=== PATIENT | female | born 1940 | race Caucasian/White ===

== ENCOUNTER 2022-04-12 15:03 | Inpatient (IN) ==
--- NOTE | 2022-04-12 15:13 | ED Triage Note ---
Date of Service April 12, 2022 History of Present Illness This patient was briefly evaluated while in triage. An abbreviated physical exam was performed. This patient is a 82-year-old Female who presents to the ED for evaluation of left sided abdominal pain that intermittently radiates into her chest. This initially began 2 days ago but worsened today and is now constant. 01/31. Daughter is concerned that her abdomen is distended. She also states her legs are more swollen than normal. Physical Exam CONSTITUTIONAL: In pain holding abdomen CARDIAC: regular rate and normal rhythm. No murmurs rubs or gallops PULMONARY: lungs clear to auscultation ABDOMEN: diffuse significant tenderness, no CVA tenderness Initial orders for labs and / or imaging were placed and patient was placed in the waiting area until a bed is available. Please see further documentation for the full ED course. MDM / Impression Impression Impression: Umbilical hernia, Anemia, Abdominal pain, Portal hypertension, Hydronephrosis due to obstruction of ureter
[2022-04-12] MEDS ORDERED: SODIUM CHLORIDE 0.9% 500 ML IV ONE (16:02)
[2022-04-12] MEDS ORDERED: ACETAMINOPHEN 1,000 MG/100 ML VIAL IV STA (16:17)
[2022-04-12 16:18] LABS: Basophils # (auto) 0.05 K/uL (0-0.2); Basophils % (auto) 1.2 %; Eosinophils # (auto) 0.08 K/uL (0-0.50); Eosinophils % (auto) 1.8 %; Hematocrit (blood only) 23.4 % (34.1-44.9); Immature Granulocytes # (auto) 0.01 K/uL (0.00-0.02); Immature Granulocytes % (auto) 0.2 %; Lymphocytes # (auto) 0.75 K/uL (1.2-3.4); Lymphocytes % (auto) 17.3 %; Mean Corpuscular Hgb Conc 29.9 g/dL (32.0-36.0); Mean Corpuscular Volume 93.6 fL (80.0-100.0); Mean Platelet Volume 9.6 fL (9.4-12.3); Monocytes # (auto) 0.94 K/uL (0.24-0.82); Monocytes % (auto) 21.7 %; Neutrophils # (auto) 2.51 K/uL (1.4-6.5); Neutrophils % (auto) 57.8 %; Platelet Count 230 K/uL (130-400); RDW Coefficient of Variation 14.9 % (11.5-14.5); RDW Standard Deviation 51.5 fL (36.4-46.3); White Blood Count 4.34 K/ul (4.8-10.8)
--- NOTE | 2022-04-12 16:30 | XRay Report ---
XR chest 1V portable CLINICAL HISTORY: Left abd and chest pain TECHNIQUE: Single frontal radiograph of the chest was obtained. Comparison: Comparison is made to chest radiograph 01/03/[address] abdomen pelvis 01/03/2022 FINDINGS: No lines and tubes are seen. Cardiomegaly is noted. The lungs are clear. There is a small right pleur al effusion. IMPRESSION: Small right pleural effusion. Otherwise no acute abnormalities are seen. Stable cardiomegaly. ACT 112: Negative or not required by law. Electronically signed by: Damon Oquendo M.D. 04/12/2022 4:29 PM
[2022-04-12 16:39] LABS: Appearance Urine Turbid (Clear); Bacteria Urine Automated 4+ (Negative); Bilirubin Urine Negative (Negative); Blood Urine 3+ (Negative); Color Urine Yellow; Epithelial Cell Urine Auto >30 /lpf (0-5); Glucose Urine UA Negative (Negative); Ketones Urine Negative (Negative); Leukocyte Esterase Urine 3+ (Negative); Nitrite Urine Positive (Negative); Protein Urine 1+ (Negative); Urobilinogen Urine Negative (Negative); WBC Urine Automated >30 /hpf (0-5); pH Urine 5.5 (4.5-7.5)
[2022-04-12 16:45] LABS: Anisocytosis Present; Hypochromasia Present; Polychromasia 1+; Target Cells 1+
[2022-04-12 16:52] LABS: Troponin I High Sensitivity 4.9 pg/ml (0-14)
[2022-04-12 16:53] LABS: Alanine Aminotransferase 32 U/L (7-52); Albumin Globulin Ratio 0.6 (0.9-2); Albumin Level 2.7 gm/dl (3.4-5.0); Alkaline Phosphatase 183 U/L (34-104); Anion Gap 5 (3-11); Aspartate Aminotransferase 37 U/L (13-39); BUN Creatinine Ratio 26.5 (10-20); Bilirubin Direct 0.1 mg/dl (0-0.2); Bilirubin,Total 0.4 mg/dl (0.2-1.0); Blood Urea Nitrogen 36 mg/dl (6-23); Calcium 8.3 mg/dl (8.5-10.1); Carbon Dioxide 22 mmol/L (21-32); Chloride 107 mmol/L (98-107); Est GFR (African American) 42.5 ml/min; Est GFR (Non-African American) 36.7 ml/min; Globulin 4.5 gm/dl (2.5-4.0); Glucose 140 mg/dl (70-99(Fasting)); Potassium 3.6 mmol/L (3.5-5.1); Sodium 134 mmol/L (136-145); Total Protein 7.2 gm/dl (6.0-8.3)
[2022-04-12] MEDS ORDERED: OPTIRAY 300 100mL IV ONE (17:12)
[2022-04-12 17:32] LABS: Reticulocyte % 2.1 % (0.5-2.0); Reticulocytes # 0.05 10^6/uL (0.02-0.10)
--- NOTE | 2022-04-12 17:46 | CT Scan Report ---
CT SCAN OF THE ABDOMEN AND PELVIS WITH IV CONTRAST CLINICAL HISTORY: Incarcerated ventral hernia status post reduction. COMPARISON STUDY: Abdominal CT dated 01/03/2022. TECHNIQUE: Following the IV administration of 92 cc of Optiray 300, CT scan of the abdomen and pelvi s is performed from the lung bases to the proximal femora. Images are reviewed in the axial, sagittal , and coronal planes. IV contrast was administered without complication. A dose lowering technique wa s utilized adhering to the principles of ALARA. CT DOSE: 326.10 mGycm FINDINGS: Lung bases: The heart is enlarged and without pericardial effusion. There is a small and at least par tially loculated right pleural effusion with associated right basilar atelectasis. Scarring/atelectas is is seen at the left lung base. There is a moderate hiatal hernia which also contains ascitic fluid . Esophageal varices are observed. Liver: The contrast-enhanced liver is cirrhotic in morphology and heterogeneous in attenuation. There is hypertrophy of the left lobe and nodularity of the surface contour. There is no intrahepatic bili lencho ductal dilatation. The hepatic veins and portal veins are patent. Gallbladder: There are tiny calcified gallstones without CT evidence of acute cholecystitis. Mild gal lbladder wall thickening is nonspecific and likely related to cirrhosis and ascites. Spleen: Normal in size and attenuation. Pancreas: Moderately atrophic and grossly unremarkable. Adrenal glands: Unremarkable. Kidneys: The contrast enhanced kidneys are atrophic. There is a 2 cm obstructing calculus at the righ t ureteropelvic junction. This causes moderate hydronephrosis of the upper pole collecting system. Ad ditional punctate nonobstructing calculi are noted in the right kidney. Urothelial thickening and enh ancement is seen involving the right ureter. There is no hydronephrosis on the left. The kidneys enha nce symmetrically. Abdominal vasculature: The abdominal aorta is normal in course and caliber noting advanced atheroscle rotic calcification. Bowel: There is nonspecific wall thickening and edema of the right colon. The proximal small bowel lo ops are mildly distended and fluid-filled measuring up to 2.6 cm in diameter. This gradually transiti ons to more decompressed distal small bowel. No discrete transition point is identified the distal sm all bowel and colon are relatively decompressed. The appendix is nonvisualized. Peritoneum: There is a tadwk-bp-hzhhekmf volume of abdominopelvic ascites. No intraperitoneal free ai r is seen. There is a fat and fluid containing umbilical hernia. Lymphadenopathy: Mildly enlarged retroperitoneal lymph nodes measure up to 11 mm in short axis. There are numerous mildly enlarged mesenteric lymph nodes which measure up to 13 mm in short axis. There i s no pelvic sidewall or inguinal adenopathy. Pelvic viscera: The bladder is normal as visualized. The uterus is surgically absent. No adnexal lesi on is seen. Hemorrhoids are suspected. Skeletal structures: The skeletal structures are osteopenic. There is a chronic compression deformity of L3. Mild to moderate lumbosacral spondylosis is observed. No lytic or blastic lesions are seen. IMPRESSION: 1. There is a fat and fluid containing ventral hernia. No bowel loops are identified within the herni a sac. 2. The proximal small bowel loops are mildly distended and fluid-filled. This gradually transitions t o decompressed distal small bowel and colon. Given reported history of an incarcerated hernia this ma y represent a resolving bowel obstruction. Persistent low grade/partial bowel obstruction is not excl uded and clinical correlation will be essential. 3. No intraperitoneal free air is seen. There is no pneumatosis intestinalis. 4. The liver is cirrhotic in morphology and heterogeneous in attenuation. 5. A small to moderate volume of abdominopelvic ascites, esophageal varices, and hemorrhoids indicate portal hypertension. 6. Moderate hiatal hernia which also contains ascitic fluid. 7. There is a small and at least partially loculated right pleural effusion. 8. Mild wall thickening and edema of the right colon is nonspecific and likely represents portal colo ciro. Correlate clinically for evidence of a nonspecific colitis. 9. There is a 2 cm obstructing calculus at the right ureteropelvic junction. This causes moderate hyd ronephrosis of the upper pole collecting system. 10. There are additional small nonobstructing right renal calculi. 12. Urothelial thickening and enhancement of the right ureter is nonspecific and can be seen with uri nary tract infection. Correlate with clinical findings and urinalysis. 13. Cholelithiasis. 14. There are numerous mildly enlarged mesenteric and retroperitoneal lymph nodes. These are nonspeci fic and similar to the 01/03/2022 examination. 15. Additional findings as above. ACT 112: Negative or not required by law. Electronically signed by: Carmelo Espana M.D. 04/12/2022 5:44 PM
[2022-04-12 18:07] LABS: INR 1.1 (0.9-1.1); Prothrombin Time 12.1 Seconds (9.0-12.0)
[2022-04-12 18:26] LABS: Ferritin 15.2 ng/ml (8-388)
[2022-04-12] MEDS ORDERED: PANTOprazole 40 MG in SYRINGE 0 ML IV ONE (18:32)
--- NOTE | 2022-04-12 19:24 | History & Physical Report ---
Date of Service April 12, 2022 Assessment & Plan (1) Incarcerated hernia: Plan: This is an 82-year-old female with a history of VILLAGOEMZ cirrhosis complicated by known hemorrhoids and esophageal varices, previous pleural effusions requiring pleurocentesis, CKD3, nephrolithiasis, hypothyroidism, reported h/o MVP who presented to [facility] for evaluation of abdominal pain, most likely secondary to now-reduced incarcerated umbilical hernia and secondary SBO. However, on admission, she was also found to have evidence of a large, right- sided obstructing renal calculus causing hydronephrosis and acute anemia. Incarcerated Hernia - Per ED provider, on arrival, patient was found to have large incarcerated hernia that was subsequently reduced - CT-A/P on admission: "There is a fat and fluid containing ventral hernia. No bowel loops are identified within the hernia sac ... The proximal small bowel loops are mildly distended and fluid-filled. This gradually transitions to decompressed distal small bowel and colon. Given reported history of an incarcerated hernia this may represent a resolving bowel obstruction. Persistent low grade/partial bowel obstruction is not excluded and clinical correlation will be essential." - Reduced in ED with improvement of patient's pain - Apply abdominal binder with underlying sheet to ensure direct pressure over the site - Consult general surgery: appreciate insight on surgical correction when appropriate - If recurrence of acute abdominal pain --> will assess consider repeat CT-A/P (2) Hydronephrosis due to obstruction of ureter: Plan: - CT-A/P revealing: "There is a 2 cm obstructing calculus at the right ureteropelvic junction. This causes moderate hydronephrosis of the upper pole collecting system" alongside smaller nonobstructing right-sided renal calculi - Urinalysis demonstrating turbid-appearing urine with 1+ proteinuria, 3+ hematuria, +nitrites, 3+ LE, 4+ bacteruria, >30WBCs, and 10-30 RBCs in context of >30 epis --> UCX pending - On exam - no significant R-sided abdominal or flank pain; does not overtly appear septic, nor does she meet SIRS/sepsis criteria at present - Consult urology: appreciate insight/need for stenting vs. other procedure - Given size, obstruction --> CFTX 1g q12h (3) Normocytic anemia: Plan: - On admission, found to have Hgb 7.0, down from 10 on 01/03/22 ED visit - Patient reporting long-standing history of hematochezia, though ?possibly more recent history of melena - Primary concern is slow, chronic GIB - likely contribution from her hemorrhoids, though cannot definitely rule out slow variceal bleed or colonic origin. No overt hematuria. --> Cirrhosis history noted, INR 1.1 on arrival, Plt WNL --> Does report history of "banding in her esophagus" several years ago - Stool counts with description ordered, will order hemeoccult to verify as well - Consult GI: appreciate need, insight for EGD/conoloscopy once stabilized - Protonix 40mg IV b.i.d. --> No overt GIB/decompensated liver failure at time of admission and VSS. Monitor. If signs/symptoms --> start octreotide. CFTX already ongoing. 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 Files not available at this time - Does report known history of portal HTN, esophageal varices previously requiring banding, pleurocentesis (per her report - from liver disease; likely transudative), and hemorrhoids - Mild-moderate degree of ascites appreciated both on exam and on CT-A/P with mild pleural effusions - MELD: 10 // Child-Bob Class B -- note that MELD utilizes elevated Cr which may be d/t post-renal source --> Mildly depressed Na, elevated Cr - GI consulted, as above - Consider initiation of BB if not previously trialed as outpatient given varices - Hold Lasix given concern for bleed - Continue spironolactone (5) Small bowel obstruction: Plan: - Noted on CT-A/P in the setting of a clinically discovered incarcerated umbilical hernia that was subsequently reduced - Suspect largely secondary to hernia given location on CT-A/P - NPO for now - advance as tolerated - Surgery consulted, as above - Hold from NGT at this time (6) Esophageal varices: Plan: - Noted on CT-A/P alongside hemorrhoids in setting of known 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, per patient -- no files available - Apparently has undergone banding in the past; files unavailable, see cirrhosis above - GI consulted, as above - Ongoing PPI; hold from octreotide for this time (7) Mitral valve prolapse: Plan: - History noted by patient ; no TTE available - Do not believe there are presently findings to suggest CHF - will monitor (8) RAMAN (acute kidney injury): Plan: - BUN 36 / Cr 1.36 on admission - elevated from 35 / 1.13 in 12/2021 - Baseline is not clear - patient reports having CKD Stage III - Suspect mixed component of prerenal and postrenal in setting of abdominal pain/decreased PO intake and known obstructing stone - Cautious repletion of fluids given known hepatic congestion - will give 500cc at 80cc/hr x 1 then stop, give more PRN - Trend, considr Lucila/UCr if picture continues to remain unclear Plan Code: DNR/DNI - discussed extensively at bedside with patient and daughter PPX: Contraindicated due to concern of acute GIB Dispo: PCU Diet: NPO History of Present Illness Primary Care Provider: Zach Gomez This is an 82-year-old female with a history of VILLAGOMEZ cirrhosis complicated by known hemorrhoids and esophageal varices, previous pleural effusions requiring pleurocentesis, CKD, nephrolithiasis, hypothyroidism who presented to [facility] for evaluation of abdominal pain. Patient is accompanied by her daughter, who contributes to the history. She says over the last several weeks, she has had a left-sided abdominal pain that she attributed to her ascites. However, it continued to get worse through today, when it would not go away. She describes it as a sharp sensation that radiated to her back. She de nies any feelings of persistent nausea or vomiting, although did feel queasy. She denies any recent fevers, chills, sweats. She denies any urinary symptoms, including dysuria, urinary frequency, urinary urgency, or hematuria. She denies any chest pain, and endorses a baseline shortness of breath that is not changed over the last several months. She denies any recent changes in medications. Patient does say that she is struggled with hemorrhoids since she was young. However, she does say that she continues to have hematochezia on occasion, and thinks she may have had darkly discolored/black appearing stools. She is unable to quantify how recent this was. Denies any lightheadedness or dizziness. Denies any hematemesis. Does report intermittent nausea on occasion. She does report receiving a transfusion once in the past but does not remember why (doesn't think GIB). Thinks it was before 2015. Medications reviewed and include vitamin C, aspirin, vitamin D, famotidine, iron, furosemide, gabapentin, levothyroxine, spironolactone. Upon arrival to the emergency department, patient's vital signs were normal.Admission labs were significant for leukopenia 4.3 with relative monoc ytosis (0.94) and lymphopenia (0.75), normocytic anemia 7.0 (notable drop from 10.0 on 01/03/2022), platelet 230. PT mildly elevated 12.1 with high normal INR 1.1. Sodium on arrival 134. BUN 36/creatinine 1.36 (notably increased from 01/03 with creatinine 1.13). Serologic normal values of AST and ALT with elevation of ALP at 183, albumin 2.7. Urine revealed turbid appearance with 1+ protein, 3+ blood, positive nitrites, 3+ leuk esterase, over 30 white blood cells and 4+ bacteria. CT of the abdomen and pelvis revealed "fat and fluid containing ventral hernia", additionally demonstrated proximal small loops of bowel that are mildly distended and fluid-filled intermixed with decompressed distal small bowel, concerning for resolving bowel obstruction; cirrhotic liver morphology with smal l to moderate volume of ascites, esophageal varices, and hemorrhoids concerning for portal hypertension; moderate hiatal hernia; small loculated right pleural effusion; possible small amount of right-sided nonspecific colitis; 2 cm obstructing calculus at the right ureteropelvic junction which causes moderate hydronephrosis in the upper pole of the collecting system; urothelial thickening and enhancement of the right ureter; cholelithiasis; mildly enlarged mesenteric and retroperitoneal lymph nodes. She was given Protonix, acetaminophen, sodium chloride. Emergency physician spoke with general surgery, who recommended medical stabilization prior to any sort of surgical intervention for possible incarcerated hernia. Allergies Allergy/AdvReac Type Severity Reaction Status Date / Time Sulfa (Sulfonamide Allergy Intermediate Rash Verified 04/12/22 19:04 Antibiotics) Home Medications Medication Instructions Recorded Confirmed Type ascorbic acid (vitamin C) 500 mg 500 mg PO BID 01/03/22 04/12/22 History tablet (Vitamin C) aspirin 81 mg tablet,delayed 81 mg PO DAILY 01/03/22 04/12/22 History release calcium citrate 315 mg 2 tab PO DAILY 01/03/22 04/12/22 History calcium-vitamin D3 6.25 mcg (250 unit) tablet (Citracal + Vitamin D Maximum) cholecalciferol (vitamin D3) 50 50 mcg PO DAILY 01/03/22 04/12/22 History mcg (2,000 unit) capsule (Vitamin D3) cranberry fruit concentrate 250 mg 250 mg PO BID 01/03/22 04/12/22 History chewable tablet (Azo Cranberry) famotidine 40 mg tablet 40 mg PO DAILY 01/03/22 04/12/22 History ferrous sulfate 325 mg (65 mg 325 mg PO DAILY 01/03/22 04/12/22 History iron) tablet (iron) furosemide 40 mg tablet 40 mg PO DAILY 01/03/22 04/12/22 History gabapentin 100 mg capsule 200 mg PO HS 01/03/22 04/12/22 History levothyroxine 75 mcg tablet 75 mcg PO DAILYBB 01/03/22 04/12/22 History lifitegrast 5 % eye drops in a 1 drp OPB BID 01/03/22 04/12/22 History dropperette (Xiidra) spironolactone 25 mg tablet 25 mg PO DAILY 01/03/22 04/12/22 History vitamins A,C,F-dzrw-sqejde 14,320 1 cap PO BID 01/03/22 04/12/22 History unit-226 mg-200 unit capsule (PreserVision AREDS) Past Med/Surg History Medical History (Updated 04/13/22 @ 19:25 by Joey Olivarez MD) Cirrhosis Umbilical hernia Family History Other Family history non-contributory Social History Smoking Status: Never smoker Hx Alcohol Use: No Hx Substance Use: No Preferred Language: Northern Irish Communication Ability: Effective Spot Checker Required: No Beliefs That Will Affect Care: None Current Living Situation: Family Other Information That Helps Us Care for You: No Feels Safe at Home: Yes Safety Concerns: Feels Safe At This Time Assistive Devices: None Review of Systems Review of Systems: as per HPI Physical Exam Physical Exam: General: 82-year old female who is tired, but appears in no acute distress. HEENT: NCAT. - Eyes - Sclera are white, anicteric, and without injection. - Mouth - MMM - Neck - supple, with mild distention of veins appreciated and mild JVD with +hepatojugular reflux. Cardiac: Normal rate and regular rhythm; S1 and S2 present with no murmurs, rubs, or gallops. Pulmonary: Good respiratory effort with symmetric expansion of the chest. No use of accessory muscles. Intermittent crackles heard primarily throughout the lower lobes and bases bilaterally. Abdominal: Normoactive bowel sounds. Abdomen was soft and mildly distended, but non-tender to palpation. No CVA tenderness appreciated on admission exam. Extremities: Upper and lower extremities are warm and well perfused. Minimal peripheral edema in the lower extremities bilaterally Psych: Well-developed, well-nourished, appropriately dressed for occasion. Behavior is cooperative and appropriate. Affect is WNL. Insight is appropriate. Results & Data Results & Data ([facility]) Vital Signs (Past 12 Hours) Vital Signs Temp Pulse Pulse Resp BP BP Pulse Ox 04/12/22 18:30 109 H 18 114/57 L 98 04/12/22 17:30 76 16 113/54 L 98 04/12/22 15:49 76 19 100/71 99 04/12/22 15:06 36.4 C L 85 18 126/66 100 O2 Del Method 04/12/22 18:30 Room Air 04/12/22 17:30 Room Air 04/12/22 15:49 Room Air 04/12/22 15:06 Room Air Supervising Physician Co-Signing Physician Notes Patient seen and examined, chart reviewed, case discussed with Dr. Agosto and I agree with the assessment and plan as above. In brief, patient is a medically complex 82yo female with histoyr of VILLAGOMEZ with known hemorrhoids and varices, CKD, nephrolithiasis presenting with abdominal pain. Found to have SBO on ER workup Also with ventral hernia and left sided obstructing calculus in the right ureteropelvic junction 2cm. On exam she is resting comfortably, NAD Skin intact, no rashes or lesions HEENT - NC/AT, PERRL, MMM, Neck supple Heart - +S1/S2, regular Lungs- CTA Abd - +BS, soft, tender in lower abdomen with diminished bowel sounds 82yo female with ventral hernia, SBO, obstructing nephrolithiasis -Urology consultation. Strain urine. Ceftriaxone. -Conservative management for SBO. GI consultation -Remainder as above Resident Activity Tracking Resident Involvement: Resident Care Provided Care Provided: Adult Hospital Medicine
--- NOTE | 2022-04-12 20:59 | Emergency Department Note ---
Impression & Plan Incarcerated hernia, Anemia, Abdominal pain, Portal hypertension, Hydronephrosis due to obstruction of ureter ED Provider Note NAME: ADRIAN HUGHES AGE: 82 SEX: F ARRIVES VIA: Walk-In INFORMANT: Patient, daughter ED PROVIDER(S): Shayne Armstrong MD CHIEF COMPLAINT: Abdominal pain PLAN: Disposition: Admit MEDICAL DECISION MAKING: The patient is a pleasant 82-year-old woman with a past medical history of cirrhosis, hypothyroidism, hypertension, GERD who presents to the emergency department company by her daughter for evaluation of constant abdominal pain since around noon following eating lunch in the setting of having intermittent similar abdominal pain over the past couple weeks. They do report that she has a abdominal hernia that will go in and out but noted that since her pain started at noon today has been persistently out and tender. Patient reports that she did move her bowels this morning and this was normal. She reports a history of intermittent blood in her stool for years which she understood was due to hemorrhoids. She denies noticing any blood in the past month. She reports mild nausea but denies vomiting. She denies any fevers, cough, congestion, urinary symptoms. On arrival the patient is uncomfortable but no acute distress, afebrile with stable vital signs. She has moderate generalized abdominal tenderness with notable tender ventral/umbilical hernia with suspected bowel measuring approximately 5cm with mild erythema. The patient was placed in Trendelenburg position and gentle downward pressure was applied with gradual reduction of the patient's hernia and immediate relief of her symptoms. Unfortunately, approximately 10 minutes after her incarcerated hernia was reduced was informed by the patient's RN that the patient's hernia recurred and upon reevaluation her incarcerated bowel containing hernia was again present and again reduced in similar fashion. The patient was kept more supine to avoid recurrence. EKG without overt acute ischemia. Chest x-ray with small right pleural effusion and otherwise no acute process. WBC 4.3K nonspecific. H/H 23.4 which is decreased from 05/23 in December Platelets within normal limits. INR within normal limits. Creatinine 1.36 similar to prior range of values. Electrolytes without significant abnormality. LFTs are unremarkable. High-sensitivity troponin 4.9, nonspecific. LFTs without significant abnormality. UA with question of infection with bacteria and WBCs as well as positive nitrites albeit with epithelial cells > 30. COVID- 19 RNA, DAXA test was negative. CT of the abdomen pelvis demonstrates findings consistent with patient's pre sentation of incarcerated umbilical hernia with fat and fluid containing ventral hernia with no bowl loops within hernia sac. There are mildly distended and fluid-filled proximal small bowel loops are seen with gradual transition to decompressed distal small bowel and colon. Additional note is made of evidence of the patient's known cirrhosis with small-moderate abdominal pelvic ascites, esophageal varices and hemorrhoids. Additional note is made of a 2 cm obstructing calculus at the right UPJ causing moderate hydronephrosis though the patient denies any right flank pain. Urothelial thickening and enhancement of the right ureter is nonspecific but can be seen in urinary tract infection. Case was discussed with Kenneth Erickson general surgery PAC following initial hernia reduction x [address] Heath general surgery on-call following completion of CT scan. Appreciate recommendations for abdominal binder to prevent recurrence of hernia. Given multiple issues at this time and currently reduced hernia and thereby resolved obstruction no plan for intervention at this time. They will be available for inpatient team consultation. Case was discussed with AP Cabrera hospitalist, [facility] [place] team will evaluate the patient for admission. Will defer decision for antibiotics to admitting team. Triage Nursing notes reviewed and agree them. Prior medical records reviewed Vital Signs: reviewed and remarkable for no significant abnormalities Differential diagnosis: Gastroenteritis, food borne illness, infections, appendicitis, diverticulitis, inflammatory bowel disease, obstruction, GI bleed, biliary pathology, volvulus, as well as other pathologies. ER treatment provided: See below. Diagnostics interpreted by me: ECG: Sinus rhythm with PSVC's, 74 bpm, no overt ST elevation or depression, QTC 455, QRS 64. Cardiac Monitoring: An order for continuous cardiac monitoring was placed and demonstrated sinus rhythm with PSVC's, 74 bpm. Laboratory studies: See below Imaging studies: See below Consultation(s): Kenneth Erickson general surgery PAC and Dr. Heath general surgery on-call. AP Cabrera hospitalist HPI: The patient is a pleasant 82-year-old woman with a past medical history of cirrhosis, hypothyroidism, hypertension, GERD who presents to the emergency department company by her daughter for evaluation of constant abdominal pain since around noon following eating lunch in the setting of having intermittent similar abdominal pain over the past couple weeks. They do report that she has a abdominal hernia that will go in and out but noted that since her pain started at noon today has been persistently out and tender. Patient reports that she did move her bowels this morning and this was normal. She reports a history of intermittent blood in her stool for years which she understood was due to hemorrhoids. She denies noticing any blood in the past month. She reports mild nausea but denies vomiting. She denies any fevers, cough, congestion, urinary symptoms. ROS: See above HPI for pertinent positives & negatives. A total of 10 systems reviewed and were otherwise negative. VITALS:See Below PHYSICAL EXAMINATION: GENERAL: Awake, alert, uncomfortable-appearing, in no distress HENT: Normocephalic, atraumatic. Oropharynx with dry mucous membranes and otherwise unremarkable. EYES: Normal conjunctiva. Sclera non-icteric. NECK: Supple. No nuchal rigidity. FROM. No JVD. RESPIRATORY: Clear to auscultation. CARDIAC: Regular rate, normal rhythm. Extremities warm and well perfused. Pulses equal. ABDOMEN: Soft, non-distended. Moderate generalized abdominal tenderness with notable tender ventral/umbilical hernia with suspected bowel measuring approximately 5cm with mild erythema. No rebound/guarding. RECTAL: Deferred. MUSCULOSKELETAL: Chest examination reveals no tenderness. The back is symmetrical on inspection without obvious abnormality. There is no CVA tenderness to palpation. No joint edema. LOWER EXTREMITIES: Calves are equal size bilaterally and non-tender. No edema. No discoloration. NEURO: Normal sensorium. No sensory or motor deficits noted. SKIN: No rash or jaundice noted. ED COURSE: Procedures: Hernia reduction Indication: Incarcerated umbilical hernia Verbal consent was obtained. The patient was placed in Trendelenburg with gentle continuous downward pressure applied with complete reduction was achieved. The patient tolerated the procedure well and there were no complications. Repeat reduction performed in similar fashion after recurrence of incarcerated hernia. Again, the patient tolerated the procedure well and there were no complications. Critical Care: I have personally spent greater than 35 minutes of critical care time in the direct management of this patient. This includes bedside care, interpretation of diagnostic studies, and testing, discussion with consultants, patient, and family members, and other required patient management activities. This 35 minutes is in excess of all separately billable procedures. 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 Beliefs That Will Affect Care: None Current Living Situation: Family Other Information That Helps Us Care for You: No Feels Safe at Home: Yes Safety Concerns: Feels Safe At This Time Assistive Devices: Glasses and Hearing Aid - Bilateral Allergies Allergies Allergy/AdvReac Type Severity Reaction Status Date / Time Sulfa (Sulfonamide Allergy Intermediate Rash Verified 04/12/22 19:04 Antibiotics) Home Meds Home Medications Medication Instructions Recorded Confirmed ascorbic acid (vitamin C) 500 mg 500 mg PO BID 01/03/22 04/12/22 tablet (Vitamin C) aspirin 81 mg tablet,delayed 81 mg PO DAILY 01/03/22 04/12/22 release calcium citrate 315 mg 2 tab PO DAILY 01/03/22 04/12/22 calcium-vitamin D3 6.25 mcg (250 unit) tablet (Citracal + Vitamin D Maximum) cholecalciferol (vitamin D3) 50 50 mcg PO DAILY 01/03/22 04/12/22 mcg (2,000 unit) capsule (Vitamin D3) cranberry fruit concentrate 250 mg 250 mg PO BID 01/03/22 04/12/22 chewable tablet (Azo Cranberry) famotidine 40 mg tablet 40 mg PO DAILY 01/03/22 04/12/22 ferrous sulfate 325 mg (65 mg 325 mg PO DAILY 01/03/22 04/12/22 iron) tablet (iron) furosemide 40 mg tablet 40 mg PO DAILY 01/03/22 04/12/22 gabapentin 100 mg capsule 200 mg PO HS 01/03/22 04/12/22 levothyroxine 75 mcg tablet 75 mcg PO DAILYBB 01/03/22 04/12/22 lifitegrast 5 % eye drops in a 1 drp OPB BID 01/03/22 04/12/22 dropperette (Xiidra) spironolactone 25 mg tablet 25 mg PO DAILY 01/03/22 04/12/22 vitamins A,C,V-prpj-vivygy 14,320 1 cap PO BID 01/03/22 04/12/22 unit-226 mg-200 unit capsule (PreserVision AREDS) Results & Data (ED) Vital Signs Vital Signs - 24 hr 04/12/22 15:06 04/12/22 15:49 04/12/22 17:30 Temperature 36.4 C L Temperature Source Oral Pulse Rate 85 Pulse Rate [Left] 76 76 Pulse Rhythm [Left] Regular Pulse Strength [Left] Normal Respiratory Rate 18 19 16 Respiratory Effort / Characteristics Non-Labored Respiratory Depth Normal Respiratory Pattern Regular Blood Pressure 126/66 Blood Pressure [Right Arm] 100/71 113/54 L Blood Pressure Mean 86 Blood Pressure Mean [Right Arm] 80 73 Blood Pressure Position [Right Arm] Lying Pulse Oximetry 100 99 98 Oxygen Delivery Method Room Air Room Air Room Air Sepsis Recent Fever Within 48 Hours No Sepsis New/Unexplained Change in Mental Status No Sepsis Action Taken by Nursing No Action Required 04/12/22 18:30 Temperature Temperature Source Pulse Rate Pulse Rate [Left] 109 H Pulse Rhythm [Left] Regular Pulse Strength [Left] Normal Respiratory Rate 18 Respiratory Effort / Characteristics Non-Labored Spontaneous Respiratory Depth Normal Respiratory Pattern Regular Blood Pressure Blood Pressure [Right Arm] 114/57 L Blood Pressure Mean Blood Pressure Mean [Right Arm] 76 Blood Pressure Position [Right Arm] Lying Pulse Oximetry 98 Oxygen Delivery Method Room Air Sepsis Recent Fever Within 48 Hours Sepsis New/Unexplained Change in Mental Status Sepsis Action Taken by Nursing Laboratory Data Attestation: I reviewed the patient's lab results. Result diagrams: 04/12/22 21:07 04/12/22 16:00 Lab Results 04/12/22 04/12/22 04/12/22 Range/Units 16:00 16:00 16:00 WBC 4.34 L (4.8-10.8) K/ul RBC 2.50 L (3.93-5.22) M/uL Hgb 7.0 L (12.0-16.0) g/dl Hct 23.4 L (34.1-44.9) % MCV 93.6 (80.0-100.0) fL MCH 28.0 (25.0-34.0) pg MCHC 29.9 L (32.0-36.0) g/dL RDW Std Deviation 51.5 H (36.4-46.3) fL RDW Coeff of Bob 14.9 H (11.5-14.5) % Plt Count 230 (130-400) K/uL MPV 9.6 (9.4-12.3) fL Immature Gran % (Auto) 0.2 % Neut % (Auto) 57.8 % Lymph % (Auto) 17.3 % [place] % (Auto) 21.7 % Eos % (Auto) 1.8 % Baso % (Auto) 1.2 % Reticulocyte % (Auto) (0.5-2.0) % Neut # (Auto) 2.51 (1.4-6.5) K/uL Lymph # (Auto) 0.75 L (1.2-3.4) K/uL [place] # (Auto) 0.94 H (0.24-0.82) K/uL Eos # (Auto) 0.08 (0-0.50) K/uL Baso # (Auto) 0.05 (0-0.2) K/uL Reticulocyte # (0.02-0.10) 10^6/uL Immature Gran # (Auto) 0.01 (0.00-0.02) K/uL Polychromasia 1+ Hypochromasia Present Anisocytosis Present Target Cells 1+ PT (9.0-12.0) Seconds INR (0.9-1.1) Sodium 134 L (136-145) mmol/L Potassium 3.6 (3.5-5.1) mmol/L Chloride 107 (98-107) mmol/L Carbon Dioxide 22 (21-32) mmol/L Anion Gap 5 (3-11) BUN 36 H (6-23) mg/dl Creatinine 1.36 H (0.6-1.2) mg/dl Est Cr Clr Drug Dosing Not Reportable Est GFR ( Amer) 42.5 ml/min Est GFR (Non-Af Amer) 36.7 ml/min BUN/Creatinine Ratio 26.5 H (10-20) Glucose 140 H (70-99(Fasting)) mg/dl Calcium 8.3 L (8.5-10.1) mg/dl Iron (35-150) mcg/dl Transferrin (200-360) mg/dl Ferritin (8-388) ng/ml Total Bilirubin 0.4 (0.2-1.0) mg/dl Direct Bilirubin 0.1 (0-0.2) mg/dl AST 37 (13-39) U/L ALT 32 (7-52) U/L Alkaline Phosphatase 183 H (34-104) U/L Troponin I High Sens 4.9 (0-14) pg/ml C-Reactive Protein (0-0.5) mg/dl Total Protein 7.2 (6.0-8.3) gm/dl Albumin 2.7 L (3.4-5.0) gm/dl Globulin 4.5 H (2.5-4.0) gm/dl Albumin/Globulin Ratio 0.6 L (0.9-2) Procalcitonin (0-0.5) ng/ml Urine Color Yellow Urine Appearance Turbid A (Clear) Urine pH 5.5 (4.5-7.5) Ur Specific [place] 1.010 (1.000-1.030) Urine Protein 1+ H (Negative) Urine Glucose (UA) Negative (Negative) Urine Ketones Negative (Negative) Urine Blood 3+ H (Negative) Urine Nitrite Positive A (Negative) Urine Bilirubin Negative (Negative) Urine Urobilinogen Negative (Negative) Ur Leukocyte Esterase 3+ H (Negative) Urine WBC (Auto) >30 H (0-5) /hpf Urine RBC (Auto) 10-30 H (0-4) /hpf U Hyaline Cast (Auto) 1-5 (0-5) /lpf U Epithel Cells (Auto) >30 H (0-5) /lpf Urine Bacteria (Auto) 4+ H (Negative) SARS-CoV-2, RNA, NAAT (NEGATIVE) Blood Type Blood Type Recheck Antibody Screen Crossmatch 04/12/22 04/12/22 04/12/22 Range/Units 16:00 16:00 16:00 WBC (4.8-10.8) K/ul RBC (3.93-5.22) M/uL Hgb (12.0-16.0) g/dl Hct (34.1-44.9) % MCV (80.0-100.0) fL MCH (25.0-34.0) pg MCHC (32.0-36.0) g/dL RDW Std Deviation (36.4-46.3) fL RDW Coeff of Bob (11.5-14.5) % Plt Count (130-400) K/uL MPV (9.4-12.3) fL Immature Gran % (Auto) % Neut % (Auto) % Lymph % (Auto) % [place] % (Auto) % Eos % (Auto) % Baso % (Auto) % Reticulocyte % (Auto) 2.1 H (0.5-2.0) % Neut # (Auto) (1.4-6.5) K/uL Lymph # (Auto) (1.2-3.4) K/uL [place] # (Auto) (0.24-0.82) K/uL Eos # (Auto) (0-0.50) K/uL Baso # (Auto) (0-0.2) K/uL Reticulocyte # 0.05 (0.02-0.10) 10^6/uL Immature Gran # (Auto) (0.00-0.02) K/uL Polychromasia Hypochromasia Anisocytosis Target Cells PT 12.1 H (9.0-12.0) Seconds INR 1.1 (0.9-1.1) Sodium (136-145) mmol/L Potassium (3.5-5.1) mmol/L Chloride (98-107) mmol/L Carbon Dioxide (21-32) mmol/L Anion Gap (3-11) BUN (6-23) mg/dl Creatinine (0.6-1.2) mg/dl Est Cr Clr Drug Dosing Est GFR ( Amer) ml/min Est GFR (Non-Af Amer) ml/min BUN/Creatinine Ratio (10-20) Glucose (70-99(Fasting)) mg/dl Calcium (8.5-10.1) mg/dl Iron 49 (35-150) mcg/dl Transferrin 209 (200-360) mg/dl Ferritin 15.2 (8-388) ng/ml Total Bilirubin (0.2-1.0) mg/dl Direct Bilirubin (0-0.2) mg/dl AST (13-39) U/L ALT (7-52) U/L Alkaline Phosphatase (34-104) U/L Troponin I High Sens (0-14) pg/ml C-Reactive Protein (0-0.5) mg/dl Total Protein (6.0-8.3) gm/dl Albumin (3.4-5.0) gm/dl Globulin (2.5-4.0) gm/dl Albumin/Globulin Ratio (0.9-2) Procalcitonin (0-0.5) ng/ml Urine Color Urine Appearance (Clear) Urine pH (4.5-7.5) Ur Specific [place] (1.000-1.030) Urine Protein (Negative) Urine Glucose (UA) (Negative) Urine Ketones (Negative) Urine Blood (Negative) Urine Nitrite (Negative) Urine Bilirubin (Negative) Urine Urobilinogen (Negative) Ur Leukocyte Esterase (Negative) Urine WBC (Auto) (0-5) /hpf Urine RBC (Auto) (0-4) /hpf U Hyaline Cast (Auto) (0-5) /lpf U Epithel Cells (Auto) (0-5) /lpf Urine Bacteria (Auto) (Negative) SARS-CoV-2, RNA, NAAT (NEGATIVE) Blood Type Blood Type Recheck Antibody Screen Crossmatch 04/12/22 04/12/22 04/12/22 Range/Units 16:00 17:42 17:42 WBC (4.8-10.8) K/ul RBC (3.93-5.22) M/uL Hgb (12.0-16.0) g/dl Hct (34.1-44.9) % MCV (80.0-100.0) fL MCH (25.0-34.0) pg MCHC (32.0-36.0) g/dL RDW Std Deviation (36.4-46.3) fL RDW Coeff of Bob (11.5-14.5) % Plt Count (130-400) K/uL MPV (9.4-12.3) fL Immature Gran % (Auto) % Neut % (Auto) % Lymph % (Auto) % [place] % (Auto) % Eos % (Auto) % Baso % (Auto) % Reticulocyte % (Auto) (0.5-2.0) % Neut # (Auto) (1.4-6.5) K/uL Lymph # (Auto) (1.2-3.4) K/uL [place] # (Auto) (0.24-0.82) K/uL Eos # (Auto) (0-0.50) K/uL Baso # (Auto) (0-0.2) K/uL Reticulocyte # (0.02-0.10) 10^6/uL Immature Gran # (Auto) (0.00-0.02) K/uL Polychromasia Hypochromasia Anisocytosis Target Cells PT (9.0-12.0) Seconds INR (0.9-1.1) Sodium (136-145) mmol/L Potassium (3.5-5.1) mmol/L Chloride (98-107) mmol/L Carbon Dioxide (21-32) mmol/L Anion Gap (3-11) BUN (6-23) mg/dl Creatinine (0.6-1.2) mg/dl Est Cr Clr Drug Dosing Est GFR ( Amer) ml/min Est GFR (Non-Af Amer) ml/min BUN/Creatinine Ratio (10-20) Glucose (70-99(Fasting)) mg/dl Calcium (8.5-10.1) mg/dl Iron (35-150) mcg/dl Transferrin (200-360) mg/dl Ferritin (8-388) ng/ml Total Bilirubin (0.2-1.0) mg/dl Direct Bilirubin (0-0.2) mg/dl AST (13-39) U/L ALT (7-52) U/L Alkaline Phosphatase (34-104) U/L Troponin I High Sens (0-14) pg/ml C-Reactive Protein 3.07 H (0-0.5) mg/dl Total Protein (6.0-8.3) gm/dl Albumin (3.4-5.0) gm/dl Globulin (2.5-4.0) gm/dl Albumin/Globulin Ratio (0.9-2) Procalcitonin 0.08 (0-0.5) ng/ml Urine Color Urine Appearance (Clear) Urine pH (4.5-7.5) Ur Specific [place] (1.000-1.030) Urine Protein (Negative) Urine Glucose (UA) (Negative) Urine Ketones (Negative) Urine Blood (Negative) Urine Nitrite (Negative) Urine Bilirubin (Negative) Urine Urobilinogen (Negative) Ur Leukocyte Esterase (Negative) Urine WBC (Auto) (0-5) /hpf Urine RBC (Auto) (0-4) /hpf U Hyaline Cast (Auto) (0-5) /lpf U Epithel Cells (Auto) (0-5) /lpf Urine Bacteria (Auto) (Negative) SARS-CoV-2, RNA, NAAT (NEGATIVE) Blood Type A Positive Blood Type Recheck Antibody Screen NEGATIVE Crossmatch See Detail 04/12/22 04/12/22 Range/Units 18:56 18:57 WBC (4.8-10.8) K/ul RBC (3.93-5.22) M/uL Hgb (12.0-16.0) g/dl Hct (34.1-44.9) % MCV (80.0-100.0) fL MCH (25.0-34.0) pg MCHC (32.0-36.0) g/dL RDW Std Deviation (36.4-46.3) fL RDW Coeff of Bbo (11.5-14.5) % Plt Count (130-400) K/uL MPV (9.4-12.3) fL Immature Gran % (Auto) % Neut % (Auto) % Lymph % (Auto) % [place] % (Auto) % Eos % (Auto) % Baso % (Auto) % Reticulocyte % (Auto) (0.5-2.0) % Neut # (Auto) (1.4-6.5) K/uL Lymph # (Auto) (1.2-3.4) K/uL [place] # (Auto) (0.24-0.82) K/uL Eos # (Auto) (0-0.50) K/uL Baso # (Auto) (0-0.2) K/uL Reticulocyte # (0.02-0.10) 10^6/uL Immature Gran # (Auto) (0.00-0.02) K/uL Polychromasia Hypochromasia Anisocytosis Target Cells PT (9.0-12.0) Seconds INR (0.9-1.1) Sodium (136-145) mmol/L Potassium (3.5-5.1) mmol/L Chloride (98-107) mmol/L Carbon Dioxide (21-32) mmol/L Anion Gap (3-11) BUN (6-23) mg/dl Creatinine (0.6-1.2) mg/dl Est Cr Clr Drug Dosing Est GFR ( Amer) ml/min Est GFR (Non-Af Amer) ml/min BUN/Creatinine Ratio (10-20) Glucose (70-99(Fasting)) mg/dl Calcium (8.5-10.1) mg/dl Iron (35-150) mcg/dl Transferrin (200-360) mg/dl Ferritin (8-388) ng/ml Total Bilirubin (0.2-1.0) mg/dl Direct Bilirubin (0-0.2) mg/dl AST (13-39) U/L ALT (7-52) U/L Alkaline Phosphatase (34-104) U/L Troponin I High Sens (0-14) pg/ml C-Reactive Protein (0-0.5) mg/dl Total Protein (6.0-8.3) gm/dl Albumin (3.4-5.0) gm/dl Globulin (2.5-4.0) gm/dl Albumin/Globulin Ratio (0.9-2) Procalcitonin (0-0.5) ng/ml Urine Color Urine Appearance (Clear) Urine pH (4.5-7.5) Ur Specific [place] (1.000-1.030) Urine Protein (Negative) Urine Glucose (UA) (Negative) Urine Ketones (Negative) Urine Blood (Negative) Urine Nitrite (Negative) Urine Bilirubin (Negative) Urine Urobilinogen (Negative) Ur Leukocyte Esterase (Negative) Urine WBC (Auto) (0-5) /hpf Urine RBC (Auto) (0-4) /hpf U Hyaline Cast (Auto) (0-5) /lpf U Epithel Cells (Auto) (0-5) /lpf Urine Bacteria (Auto) (Negative) SARS-CoV-2, RNA, NAAT NEGATIVE (NEGATIVE) Blood Type Blood Type Recheck A Positive Antibody Screen Crossmatch Administered Medications Ascorbic Acid (Ascorbic Acid 500 Mg Tab) 500 mg PO BID KEVIN Stop: 05/12/22 21:34 Last Admin: 04/12/22 22:51 Dose: 500 mg Documented By: KRISTOPHER Gabapentin (Gabapentin 100 Mg Cap) 200 mg PO HS KEVIN Stop: 05/12/22 21:34 Last Admin: 04/12/22 22:51 Dose: 200 mg Documented By: KRISTOPHER Ceftriaxone Sodium 2,000 mg/ (Dextrose) 70 mls @ 100 mls/hr IV Q24H KEVIN; Protocol Stop: 04/22/22 21:59 Last Admin: 04/12/22 22:51 Dose: 100 mls/hr Documented By: KRISTOPHER Discontinued Medications Sodium Chloride (Nss) 500 mls @ 999 mls/hr IV .Q31M ONE Stop: 04/12/22 16:32 Last Infusion: 04/12/22 17:59 Dose: 0 mls/hr Documented By: Admin: 04/12/22 16:23 Dose: 999 mls/hr Documented By: SEEMA Acetaminophen (Ofirmev) 1,000 mg in 100 mls @ 400 mls/hr IV NOW STA Stop: 04/12/22 16:31 Last Infusion: 04/12/22 17:23 Dose: 0 mls/hr Documented By: Admin: 04/12/22 16:23 Dose: 400 mls/hr Documented By: SEEMA Pantoprazole Sodium 40 mg/ (Syringe) 10 mls @ 5 mls/min IV NOW ONE Stop: 04/12/22 18:33 Last Admin: 04/12/22 19:02 Dose: 5 mls/min Documented By: KACEY Ioversol (Optiray 300 100ml) 92 ml IV ONCE ONE Stop: 04/12/22 17:13 Last Admin: 04/12/22 17:15 Dose: 92 ml Documented By: JAYDEN Imaging Data Radiologist's Impression: Chest X-Ray 04/12/22 15:06 XR chest 1V portable CLINICAL HISTORY: Left abd and chest pain TECHNIQUE: Single frontal radiograph of the chest was obtained. Comparison: Comparison is made to chest radiograph 01/03/[address] abdomen pe lvis 01/03/2022 FINDINGS: No lines and tubes are seen. Cardiomegaly is noted. The lungs are clear. There is a small right pleural effusion. IMPRESSION: Small right pleural effusion. Otherwise no acute abnormalities are seen. Stable cardiomegaly. ACT 112: Negative or not required by law. Electronically signed by: Damon Oquendo M.D. 04/12/2022 4:29 PM Abdomen/Pelvis CT 04/12/22 16:17 CT SCAN OF THE ABDOMEN AND PELVIS WITH IV CONTRAST CLINICAL HISTORY: Incarcerated ventral hernia status post reduction. COMPARISON STUDY: Abdominal CT dated 01/03/2022. TECHNIQUE: Following the IV administration of 92 cc of Optiray 300, CT scan of the abdomen and pelvis is performed from the lung bases to the proximal femora. Images are reviewed in the axial, sagittal, and coronal planes. IV contrast was administered without complication. A dose lowering technique was utilized adhering to the principles of ALARA. CT DOSE: 326.10 mGycm FINDINGS: Lung bases: The heart is enlarged and without pericardial effusion. There is a small and at least partially loculated right pleural effusion with associated right basilar atelectasis. Scarring/atelectasis is seen at the left lung base. There is a moderate hiatal hernia which also contains ascitic fluid. Esophageal varices are observed. Liver: The contrast-enhanced liver is cirrhotic in morphology and heterogeneous in attenuation. There is hypertrophy of the left lobe and nodularity of the surface contour. There is no intrahepatic biliary ductal dilatation. The hepatic veins and portal veins are patent. Gallbladder: There are tiny calcified gallstones without CT evidence of acute cholecystitis. Mild gallbladder wall thickening is nonspecific and likely related to cirrhosis and ascites. Spleen: Normal in size and attenuation. Pancreas: Moderately atrophic and grossly unremarkable. Adrenal glands: Unremarkable. Kidneys: The contrast enhanced kidneys are atrophic. There is a 2 cm obstructing calculus at the right ureteropelvic junction. This causes moderate hydronephrosis of the upper pole collecting system. Additional punctate nonobstructing calculi are noted in the right kidney. Urothelial thickening and enhancement is seen involving the right ureter. There is no hydronephrosis on the left. The kidneys enhance symmetrically. Abdominal vasculature: The abdominal aorta is normal in course and caliber noting advanced atherosclerotic calcification. Bowel: There is nonspecific wall thickening and edema of the right colon. The proximal small bowel loops are mildly distended and fluid-filled measuring up to 2.6 cm in diameter. This gradually transitions to more decompressed distal small bowel. No discrete transition point is identified the distal small bowel and colon are relatively decompressed. The appendix is nonvisualized. Peritoneum: There is a [id number] volume of abdominopelvic ascites. No intraperitoneal free air is seen. There is a fat and fluid containing umbilical hernia. Lymphadenopathy: Mildly enlarged retroperitoneal lymph nodes measure up to 11 mm in short axis. There are numerous mildly enlarged mesenteric lymph nodes which measure up to 13 mm in short axis. There is no pelvic sidewall or inguinal adenopathy. Pelvic viscera: The bladder is normal as visualized. The uterus is surgically absent. No adnexal lesion is seen. Hemorrhoids are suspected. Skeletal structures: The skeletal structures are osteopenic. There is a chronic compression deformity of L3. Mild to moderate lumbosacral spondylosis is ob served. No lytic or blastic lesions are seen. IMPRESSION: 1. There is a fat and fluid containing ventral hernia. No bowel loops are id entified within the hernia sac. 2. The proximal small bowel loops are mildly distended and fluid-filled. This gradually transitions to decompressed distal small bowel and colon. Given reported history of an incarcerated hernia this may represent a resolving bowel obstruction. Persistent low grade/partial bowel obstruction is not excluded and clinical correlation will be essential. 3. No intraperitoneal free air is seen. There is no pneumatosis intestinalis. 4. The liver is cirrhotic in morphology and heterogeneous in attenuation. 5. A small to moderate volume of abdominopelvic ascites, esophageal varices, and hemorrhoids indicate portal hypertension. 6. Moderate hiatal hernia which also contains ascitic fluid. 7. There is a small and at least partially loculated right pleural effusion. 8. Mild wall thickening and edema of the right colon is nonspecific and likely represents portal colopathy. Correlate clinically for evidence of a nonspecific colitis. 9. There is a 2 cm obstructing calculus at the right ureteropelvic junction. This causes moderate hydronephrosis of the upper pole collecting system. 10. There are additional small nonobstructing right renal calculi. 12. Urothelial thickening and enhancement of the right ureter is nonspecific and can be seen with urinary tract infection. Correlate with clinical findings and urinalysis. 13. Cholelithiasis. 14. There are numerous mildly enlarged mesenteric and retroperitoneal lymph nodes. These are nonspecific and similar to the 01/03/2022 examination. 15. Additional findings as above. ACT 112: Negative or not required by law. Electronically signed by: Carmelo Espana M.D. 04/12/2022 5:44 PM Discharge Plan Visit Data Chief Complaint: Chest Pain Stated Complaint: CHEST PAIN, SOB ED Provider: Shayne Armstrong Discharge Problem: Incarcerated hernia, Anemia, Abdominal pain, Portal hypertension, Hydronephrosis due to obstruction of ureter Patient Disposition: Admitted As Inpatient Discharge Instructions Interventions: ED Discharge Assessment Last Done: 04/12/22 21:15
--- NOTE | 2022-04-12 21:01 | Surgery Consultation ---
Date of Consultation April 12, 2022 Assessment & Plan (1) Umbilical hernia: The patient is being admitted on the hospital service as she has other medical comorbidities that need to be addressed, in particular her worsening anemia as well as VILLAGOMEZ with ascites. From a surgical perspective concerning her hernia we recommend the following: At the present time the patient's hernia appears to be reduced and does not contain any bowel that would be at risk for ischemia, therefore an emergent surgical procedure is not indicated Patient has an abdominal binder in place and would recommend continuing this modality The patient's numerous other medical comorbidities need to be optimized before a nonemergent hernia or mesh repair can be considered History of Present Illness Reason for Consultation: Ventral hernia History of Present Illness This is a 82-year-old female with multiple medical problems. 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 She has known chronic kidney disease, nephrolithiasis, and hypothyroidism. Patient presented to [facility] due to abdominal pain. Her daughter was present at bedside who helps supplement the history. She notes that she has been having abdominal pain on and off for a few weeks. She notes that the pain is primary located on the left side of her abdomen without notifying factors. She does note that at times the pain radiates into her left chest. With her current episode of abdominal pain she notes that it lasted longer and was somewhat more severe than what she usually experiencing thus prompting her visit to the emergency department. She denies any nausea or vomiting. She denies any f lien, shakes, or chills. She did eat some yogurt and drink some liquids at approximately noon today. She also reports having a normal bowel movement earlier today. 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 She notes that she became aware of this condition in approximately 2016. The patient does note that she has had a tubal ligation but has not had any other abdominal surgeries. Since arrival to the emergency department she has had labs and imaging which independent reviewed. A chest x-ray showed a small right pleural effusion. CT scan of patient's abdomen pelvis showed fat and fluid containing ventral hernia. There is no bowel loops identified within this hernia. Some of the proximal small bowel loops were noted to be distended and fluid-filled which transitions into decompressed distal small bowel. Terpening radiologist felt that this could have represented a resolving bowel obstruction. No intraperitoneal free air is noted. There is no pneumatosis intestinalis. She had a cirrhotic appearing liver. There is a moderate volume of abdominal ascites noted. Esophageal varices were also noted. A moderate hiatal hernia was also noted. Labs include a CBC her white blood cell count is 4.3. Hemoglobin and hematocrit were 7.0 and 23.4. This level of hemoglobin represents approximately 3 g drop from her most recent hemoglobin which was from December of this year. The patient's platelet count is 230,000. Her INR is noted to be 1.1. Chemistry profile shows sodium is 134 with a normal potassium. BUN and creatinine were 36 and 1.3. This level of creatinine is near the patient's baseline. The patient's bilirubin and transaminases were normal. Alkaline phosphatase had a slight elevation at 183. Urinalysis was concerning for urinary tract infection. A COVID test was negative. At the time of my interview the patient was resting comfortably in bed and she was in no distress. Allergies Allergy/AdvReac Type Severity Reaction Status Date / Time Sulfa (Sulfonamide Allergy Intermediate Rash Verified 04/12/22 19:04 Antibiotics) Home Medications Medication Instructions Recorded Confirmed Type ascorbic acid (vitamin C) 500 mg 500 mg PO BID 01/03/22 04/12/22 History tablet (Vitamin C) aspirin 81 mg tablet,delayed 81 mg PO DAILY 01/03/22 04/12/22 History release calcium citrate 315 mg 2 tab PO DAILY 01/03/22 04/12/22 History calcium-vitamin D3 6.25 mcg (250 unit) tablet (Citracal + Vitamin D Maximum) cholecalciferol (vitamin D3) 50 50 mcg PO DAILY 01/03/22 04/12/22 History mcg (2,000 unit) capsule (Vitamin D3) cranberry fruit concentrate 250 mg 250 mg PO BID 01/03/22 04/12/22 History chewable tablet (Azo Cranberry) famotidine 40 mg tablet 40 mg PO DAILY 01/03/22 04/12/22 History ferrous sulfate 325 mg (65 mg 325 mg PO DAILY 01/03/22 04/12/22 History iron) tablet (iron) furosemide 40 mg tablet 40 mg PO DAILY 01/03/22 04/12/22 History gabapentin 100 mg capsule 200 mg PO HS 01/03/22 04/12/22 History levothyroxine 75 mcg tablet 75 mcg PO DAILYBB 01/03/22 04/12/22 History lifitegrast 5 % eye drops in a 1 drp OPB BID 01/03/22 04/12/22 History dropperette (Xiidra) spironolactone 25 mg tablet 25 mg PO DAILY 01/03/22 04/12/22 History vitamins A,C,R-kbig-sqeawe 14,320 1 cap PO BID 01/03/22 04/12/22 History unit-226 mg-200 unit capsule (PreserVision AREDS) Patient History Medical History (Updated 04/12/22 @ 21:16 by Brian Agosto MD) Cirrhosis Umbilical hernia Family History (Updated 04/12/22 @ 21:06 by Shayne Armstrong MD) Other Family history non-contributory Social History Smoking Status: Never smoker Feels Safe at Home: Yes Review of Systems Constitutional: no fever and no chills Eyes: no eye pain Ear, Nose, Mouth, Throat: no ear pain Respiratory: no cough and no dyspnea Cardiovascular: + chest pain (Radiating from abdomen) Gastrointestinal: as per Subjective / HPI Genitourinary: no dysuria Musculoskeletal: no back pain Integumentary: no rash Neurologic: no localized weakness Physical Exam Constitutional: WD/WN, vitals as above Eyes: + anicteric sclerae ENMT: Ears: no hearing impairment and no external ear abnormality Mouth: no oropharynx abnormality Neck: trachea midline Respiratory: normal respiratory effort; no respiratory distress and no labored breathing Breath sounds are slightly decreased at the bases Cardiovascular: Rate/Rhythm: regular rate and regular rhythm Vessels: dorsalis pedis pulses present and radial pulses present Gastrointestinal (Abdomen): Abdomen is soft and nondistended. No rigidity is noted. There is no rebound tenderness or guarding. Patient did have an easily reducible umbilical hernia noted. Musculoskeletal: No calf tenderness. Trace lower extremity edema noted Skin: no rashes Neurologic: moves all extremities Psychiatric: A+Ox3, euthymic affect Results & Data ([place]) Vital Signs (Past 12 Hours) Vital Signs Temp Pulse Pulse Resp BP BP BP 04/12/22 20:35 70 14 120/59 L 04/12/22 18:30 109 H 18 114/57 L 04/12/22 17:30 76 16 113/54 L 04/12/22 15:49 76 19 100/71 04/12/22 15:06 36.4 C L 85 18 126/66 Pulse Ox O2 Del Method 04/12/22 20:35 97 Room Air 04/12/22 18:30 98 Room Air 04/12/22 17:30 98 Room Air 04/12/22 15:49 99 Room Air 04/12/22 15:06 100 Room Air PG Care Time/CCT Total # of Minutes Spent Total Time Spent with Patient: Total time spent is greater than 50% in coordination of care (as documented) at patient's floor/unit and/or counseling patient: Coding Level of Care Code 45743 Inpt Consult Level 5 Diagnoses Umbilical hernia K42.9
[2022-04-12] MEDS ORDERED: NON-FORMULARY MEDICATION (Cranberry Fruit Concentrate [Azo Cranberry] 250 mg tablet,chewab PO SCH (21:35)
[2022-04-12 21:38] LABS: Hematocrit (blood only) 21.1 % (34.1-44.9); Hemoglobin 6.5 g/dl (12.0-16.0)
[2022-04-12] MEDS ORDERED: SODIUM CHLORIDE 0.9% 250 ML IV PRN (21:40)
--- NOTE | 2022-04-12 21:49 | Urology Consultation ---
Date of Consultation April 12, 2022 Assessment & Plan (1) Nephrolithiasis: The patient is being admitted on the hospitalist service for treatment of her numerous medical comorbidities including worsening anemia as well as Matthews. From a urologic standpoint we recommend the following: Provide IV fluid for hydration Provide analgesics Provide antiemetics Urinalysis is concerning for urinary tract infection.At the present time the patient does not appear septic she does not exhibit a leukocytosis, she is normotensive, she is not tachycardic, and does not have fever. In addition the patient's renal function is near her baseline thus there is no evidence of acute kidney injury. I therefore do not think an emergent urologic procedure is indicated. She has received antibiotics in form of Rocephin and a urine culture has been sent. Would recommend continuing antibiotics and following urine culture results, tailoring antibiotics based on these results. Is unclear if the patient will require cystoscopy in the future. A 2 cm stone unlikely to be passable on its own. Prior to taking patient to the operating room, however her other medical comorbidities would need to be optimized. Attending note: Agree with above. Spoke directly with the primary team about patient's current condition. Numerous comorbidities with significant anemia, fluid overload possible issues related to small bowel obstruction with recently reduced large hernia along midline. Patient however is not acutely ill. Has normal vitals with baseline issues with mild hypotension. No significant signs of fever or worsening or deconditioning or development of sepsis or systemic effects. Numerous amounts of fluid seen within the abdomen secondary to patient cirrhosis with likely fluid overload. Patient is being admitted on broad-spectrum antibiotics with supportive care and plan for management of her multiple ongoing issues. Patient had initially presented with left-sided abdominal pain that improved after reduction of hernia per admitting team. Patient's anemia is being further worked up and likely will require transfusion patient has possibility of GI bleed with history of esophageal varices and possible issues related to large bowel. Patient will likely need to be optimized and with resolution of ongoing issues especially the significant anemia. Patient's incidental discovered large right-sided stone will likely need stent placement and possible intervention however will need to await further optimization. Patient's labs were all reviewed. Creatinine is around baseline. Patient is not having significant elevation of white count. Has a low white count typically around 4 and has remained stable from this. Patient has grossly infected appearing urine and did have a large bladder volume on CT scan. The CT scan was reviewed and interpreted by myself with findings as listed above. We will plan for supportive care for now and await patient's medical optimization prior to considerations for intervention. 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 Patient has known chronic kidney disease, history of nephrolithiasis, and hypothyroidism. She presented to the [facility] emergency department secondary to abdominal pain. Patient notes that she has been having abdominal pain that comes and goes in and on and off fashion for several weeks but the pain became somewhat worse and longer lasting today. With her pain she does not note any radiation other than some radiation into her chest but no additional modifying factors are noted. She denies any fevers, shakes, chills. She denies any nausea or vomiting. She notes that the pain is primarily located along the left side of her abdomen. She arrived to the emergency department where she had a chest x-ray that showed a small right pleural effusion. A CT scan of the patient's abdomen showed that patient had a fat and fluid containing ventral hernia with other signs concerning for a resolving small bowel obstruction. There is no intraperitoneal free air or pneumatosis intestinalis noted. She had a cirrhotic appearing liver with a moderate amount of ascites. In addition the patient was noted to have a 2 mm obstructing calculus in the right ureter resulting in right hydronephrosis. Labs include a CBC her white blood cell count was 4.3. Hemoglobin and hematocrit were 7.0 and 23.4. Her hemoglobin at this level has represented approximately 3 g drop from December of this year. Platelet count was 230,000. INR is noted to be 1.1. Chemistry profile showed her sodium was 134 with normal potassium. BUN and creatinine were 36 and 1.3. Urinalysis was concerning for urinary tract infection. A COVID test was negative. At the time of my interview she was resting comfortably in bed in no distress. Allergies Allergy/AdvReac Type Severity Reaction Status Date / Time Sulfa (Sulfonamide Allergy Intermediate Rash Verified 04/12/22 19:04 Antibiotics) Home Medications Medication Instructions Recorded Confirmed Type ascorbic acid (vitamin C) 500 mg 500 mg PO BID 01/03/22 04/12/22 History tablet (Vitamin C) aspirin 81 mg tablet,delayed 81 mg PO DAILY 01/03/22 04/12/22 History release calcium citrate 315 mg 2 tab PO DAILY 01/03/22 04/12/22 History calcium-vitamin D3 6.25 mcg (250 unit) tablet (Citracal + Vitamin D Maximum) cholecalciferol (vitamin D3) 50 50 mcg PO DAILY 01/03/22 04/12/22 History mcg (2,000 unit) capsule (Vitamin D3) cranberry fruit concentrate 250 mg 250 mg PO BID 01/03/22 04/12/22 History chewable tablet (Azo Cranberry) famotidine 40 mg tablet 40 mg PO DAILY 01/03/22 04/12/22 History ferrous sulfate 325 mg (65 mg 325 mg PO DAILY 01/03/22 04/12/22 History iron) tablet (iron) furosemide 40 mg tablet 40 mg PO DAILY 01/03/22 04/12/22 History gabapentin 100 mg capsule 200 mg PO HS 01/03/22 04/12/22 History levothyroxine 75 mcg tablet 75 mcg PO DAILYBB 01/03/22 04/12/22 History lifitegrast 5 % eye drops in a 1 drp OPB BID 01/03/22 04/12/22 History dropperette (Xiidra) spironolactone 25 mg tablet 25 mg PO DAILY 01/03/22 04/12/22 History vitamins A,C,Y-rbtv-zxgndf 14,320 1 cap PO BID 01/03/22 04/12/22 History unit-226 mg-200 unit capsule (PreserVision AREDS) Patient History Medical History Cirrhosis Umbilical hernia Family History Other Family history non-contributory Social History Smoking Status: Never smoker Hx Alcohol Use: No Hx Substance Use: No Preferred Language: Marshallese Communication Ability: Effective Powder Monkey Required: No Beliefs That Will Affect Care: None Current Living Situation: Family Other Information That Helps Us Care for You: No Feels Safe at Home: Yes Safety Concerns: Feels Safe At This Time Assistive Devices: Glasses and Hearing Aid - Bilateral Review of Systems Constitutional: no fever and no chills Eyes: no diplopia Ear, Nose, Mouth, Throat: no ear pain Respiratory: no cough and no dyspnea Cardiovascular: no chest pain Gastrointestinal: as per Subjective / HPI Genitourinary: no dysuria Musculoskeletal: no back pain Integumentary: no rash Neurologic: no localized weakness Physical Exam Constitutional: WD/WN, vitals as above Eyes: + anicteric sclerae ENMT: Ears: no hearing impairment and no external ear abnormality Mouth: no oropharynx abnormality Neck: trachea midline Respiratory: normal respiratory effort; no respiratory distress and no labored breathing Cardiovascular: Rate/Rhythm: regular rate and regular rhythm Vessels: dorsalis pedis pulses present and radial pulses present Gastrointestinal (Abdomen): Abdomen is soft and nondistended. It is nonrigid. There is an easily reducible umbilical hernia noted. Musculoskeletal: No calf tenderness Skin: no rashes Neurologic: moves all extremities Psychiatric: A+Ox3, euthymic affect Genitourinary: no CVA tenderness Results & Data ([facility]) Vital Signs (Past 12 Hours) Vital Signs Temp Pulse Pulse Pulse Resp BP BP 04/12/22 21:22 36.6 C 70 20 124/69 04/12/22 21:36 04/12/22 21:15 78 109/65 04/12/22 20:35 70 14 120/59 L 04/12/22 18:30 109 H 18 04/12/22 17:30 76 16 04/12/22 15:49 76 19 04/12/22 15:06 36.4 C L 85 18 126/66 BP Pulse Ox O2 Del Method 04/12/22 21:22 99 Room Air 04/12/22 21:36 97 Room Air 04/12/22 21:15 97 Room Air 04/12/22 20:35 97 Room Air 04/12/22 18:30 114/57 L 98 Room Air 04/12/22 17:30 113/54 L 98 Room Air 04/12/22 15:49 100/71 99 Room Air 04/12/22 15:06 100 Room Air PG Care Time/CCT Total # of Minutes Spent Total Time Spent with Patient: Total time spent is greater than 50% in coordination of care (as documented) at patient's floor/unit and/or counseling patient: Coding Level of Care Code 79593 Inpt Consult Level 5 Diagnoses Nephrolithiasis N20.0
[2022-04-12] MEDS ORDERED: SODIUM CHLORIDE 0.9% 500 ML IV SCH (22:30)
[2022-04-12] MEDS: cefTRIAXone SODIUM 2,000 MG in DEXTROSE 5% 50 ML IV SCH (22:51)
[2022-04-12] MEDS: ASCORBIC ACID 500 MG TAB PO SCH (22:51)
[2022-04-12] MEDS: GABAPENTIN 100 MG CAP PO SCH (22:51)
[2022-04-13] MEDS ORDERED: ACETAMINOPHEN 325 MG TAB PO STA (00:06)
[2022-04-13] MEDS: LEVOTHYROXINE SODIUM 75 MCG TABLET PO SCH (05:28)
[2022-04-13 06:12] LABS: Basophils # (auto) 0.04 K/uL (0-0.2); Eosinophils # (auto) 0.09 K/uL (0-0.50); Eosinophils % (auto) 2.3 %; Hematocrit (blood only) 26.3 % (34.1-44.9); Hemoglobin 8.4 g/dl (12.0-16.0); Immature Granulocytes # (auto) 0.01 K/uL (0.00-0.02); Immature Granulocytes % (auto) 0.3 %; Lymphocytes # (auto) 0.44 K/uL (1.2-3.4); Lymphocytes % (auto) 11.1 %; Mean Corpuscular Hemoglobin 28.1 pg (25.0-34.0); Mean Corpuscular Hgb Conc 31.9 g/dL (32.0-36.0); Mean Platelet Volume 9.5 fL (9.4-12.3); Monocytes # (auto) 0.67 K/uL (0.24-0.82); Neutrophils % (auto) 68.3 %; Platelet Count 173 K/uL (130-400); RDW Coefficient of Variation 14.8 % (11.5-14.5); RDW Standard Deviation 47.9 fL (36.4-46.3); Red Blood Count 2.99 M/uL (3.93-5.22); White Blood Count 3.95 K/ul (4.8-10.8)
[2022-04-13 06:25] LABS: INR 1.2 (0.9-1.1); Partial Thromboplastin Ratio 1.1; Partial Thromboplastin Time 30.9 Seconds (21.0-31.0); Prothrombin Time 12.7 Seconds (9.0-12.0)
[2022-04-13 06:40] LABS: Albumin Globulin Ratio 0.6 (0.9-2); Albumin Level 2.3 gm/dl (3.4-5.0); BUN Creatinine Ratio 27.7 (10-20); Bilirubin,Total 1.6 mg/dl (0.2-1.0); Calcium 7.9 mg/dl (8.5-10.1); Est GFR (African American) 44.9 ml/min; Est GFR (Non-African American) 38.7 ml/min; Globulin 3.9 gm/dl (2.5-4.0); Potassium 3.6 mmol/L (3.5-5.1); Total Protein 6.2 gm/dl (6.0-8.3)
--- NOTE | 2022-04-13 07:58 | Urology Progress Note ---
Date of Service April 13, 2022 Assessment & Plan (1) Hydronephrosis due to obstruction of ureter: (2) UTI (urinary tract infection): Plan 82yo F with a suspcted UTI and 2 cm obstructing calculus at the right ureteropelvic junction causing moderate hydronephrosis. -Afebrile and hemodynamically stable. Non-toxic appearing. -Labs reviewed- Wbc 3.95, Creatinine 1.30 -Urine culture preliminary with gram negative bacilli, on IV ceftriaxone. -Given the obstructing stone as well as suspected UTI, will plan to proceed with cystoscopy, right retrograde pyelogram, right ureteral stent placement today. -Patient agreeable to plan, all questions were answered. -Keep NPO. Continue supportive care and antibiotic therapy. -Urology will follow. Admission and Anticipated Discharge Date Admission Date: April 12, 2022 Supervising Physician Co-Signing Physician Notes agree with above given UA findings and stone, intervention with ureteral stent is most appropriate Subjective Patient examined at bedside this AM. Awake, resting bed on arrival. No acute distress. States her pain significantly improved after the hernia was reduced. She denies any flank, back, abdominal pain at present. No fevers or chills. Denies nausea or vomiting. Voiding without issue. Denies hematuria or dysuria. Has been NPO other than sips of water with medication. Review of Systems Constitutional: as per Subjective / HPI Gastrointestinal: as per Subjective / HPI Genitourinary: as per Subjective / HPI Physical Exam Constitutional: no acute distress Respiratory: normal respiratory effort; no respiratory distress and no labored breathing Neurologic: awake Psychiatric: Orientation: alert and oriented x 3 Results & Data ([facility]) Vital Signs (Past 12 Hours) Vital Signs Temp Pulse Pulse Pulse Resp BP BP 04/13/22 07:42 36.6 C 80 16 94/56 L 04/13/22 03:31 36.5 C 75 18 106/62 04/13/22 03:32 36.5 C 75 18 106/62 04/13/22 02:55 36.5 C 74 18 101/65 04/13/22 02:25 36.6 C 78 18 91/47 L 04/13/22 02:10 36.5 C 64 19 106/72 04/13/22 01:50 36.5 C 78 20 115/66 04/13/22 01:45 36.5 C 78 20 115/66 04/13/22 00:15 36.5 C 60 16 128/70 04/12/22 23:28 36.4 C L 71 18 128/61 04/12/22 22:58 36.5 C 61 16 123/66 04/12/22 22:43 36.4 C L 66 19 110/67 04/12/22 22:26 36.6 C 72 18 112/65 04/12/22 21:22 36.6 C 70 20 124/69 04/12/22 21:36 04/12/22 21:15 78 109/65 04/12/22 20:35 70 14 120/59 L Pulse Ox O2 Del Method O2 Flow Rate 04/13/22 07:42 93 Room Air 04/13/22 03:31 98 0 04/13/22 03:32 98 0 04/13/22 02:55 97 0 04/13/22 02:25 96 04/13/22 02:10 94 0 04/13/22 01:50 98 04/13/22 01:45 98 04/13/22 00:15 98 04/12/22 23:28 99 04/12/22 22:58 95 04/12/22 22:43 97 04/12/22 22:26 96 04/12/22 21:22 99 Room Air 04/12/22 21:36 97 Room Air 04/12/22 21:15 97 Room Air 04/12/22 20:35 97 Room Air PG Care Time/CCT Total # of Minutes Spent Total Time Spent with Patient: Total time spent is greater than 50% in coordination of care (as documented) at patient's floor/unit and/or counseling patient: Coding Level of Care Code 28314 Subseq Hosp Care Lvl 2 Diagnoses Hydronephrosis due to obstruction of ureter N13.1 UTI (urinary tract infection) N39.0
[2022-04-13] MEDS: ASCORBIC ACID 500 MG TAB PO SCH ×2 (09:02→20:14)
[2022-04-13] MEDS: CALCIUM CITRATE 950 MG TAB PO SCH (09:02)
[2022-04-13] MEDS: CEROVITE ADV FORMULA TAB PO SCH ×2 (09:03→20:12)
[2022-04-13] MEDS: FERROUS SULFATE 325 MG TAB PO SCH (09:03)
[2022-04-13] MEDS: CHOLECALCIFEROL 1,000 UNITS 25 MCG TAB PO SCH (09:03)
[2022-04-13] MEDS: PANTOprazole 40 MG in SYRINGE 0 ML IV SCH ×2 (09:04→20:32)
[2022-04-13] MEDS: SPIRONOLACTONE 25 MG TAB PO SCH (09:04)
--- NOTE | 2022-04-13 09:56 | Gastrointestinal Consultation ---
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 Martinez who advised on plan. - I spoke with [facility], Ashanti Purcell, who asked us to see the patient during this admission, and patient is set up with EGD with Dr. Moore as outpatient in the coming weeks. - continue spironolactone 25mg once daily. - she can follow with her regular GI group as outpatient for known Cirrhosis and proceed as planned with EGD. (2) Anemia: - normocytic in nature. no iron deficiency on labs. no signs of any active bleeding. Can follow H/H and transfuse as needed. - she can follow with regular GI group as outpatient for already planned EGD. - continue protonix 40mg bid. History of Present Illness Reason for Consultation: Cirrhosis, esophageal varices, blood loss anemia Requesting Physician: Dr. 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 She tells me her abdominal pain has resolved since reduction of umbilical hernia. On admission, she was also found to have evidence of a large, right-sided obstructing renal calculus causing hydronephrosis and acute anemia without signs of any active bleeding. She has not moved bowels since yesterday, but is passing gas. She denies seeing any blood in stools or melena. Surgery and urology are following. I spoke with [facility], Ashanti Purcell, who asked us to see during this admission, and patient is set up with EGD with Dr. Moore as outpatient in the coming weeks. Patient tells me she has had known Cirrhosis since 2013 due to VILLAGOMEZ. Patient denies any current issues with nausea, vomiting, dysphagia, heartburn, abdominal pain, unintentional weight loss, change in bowels, melena, or bright red blood per rectum. Allergies Allergy/AdvReac Type Severity Reaction Status Date / Time Sulfa (Sulfonamide Allergy Intermediate Rash Verified 04/12/22 19:04 Antibiotics) Home Medications Medication Instructions Recorded Confirmed Type ascorbic acid (vitamin C) 500 mg 500 mg PO BID 01/03/22 04/12/22 History tablet (Vitamin C) aspirin 81 mg tablet,delayed 81 mg PO DAILY 01/03/22 04/12/22 History release calcium citrate 315 mg 2 tab PO DAILY 01/03/22 04/12/22 History calcium-vitamin D3 6.25 mcg (250 unit) tablet (Citracal + Vitamin D Maximum) cholecalciferol (vitamin D3) 50 50 mcg PO DAILY 01/03/22 04/12/22 History mcg (2,000 unit) capsule (Vitamin D3) cranberry fruit concentrate 250 mg 250 mg PO BID 01/03/22 04/12/22 History chewable tablet (Azo Cranberry) famotidine 40 mg tablet 40 mg PO DAILY 01/03/22 04/12/22 History ferrous sulfate 325 mg (65 mg 325 mg PO DAILY 01/03/22 04/12/22 History iron) tablet (iron) furosemide 40 mg tablet 40 mg PO DAILY 01/03/22 04/12/22 History gabapentin 100 mg capsule 200 mg PO HS 01/03/22 04/12/22 History levothyroxine 75 mcg tablet 75 mcg PO DAILYBB 01/03/22 04/12/22 History lifitegrast 5 % eye drops in a 1 drp OPB BID 01/03/22 04/12/22 History dropperette (Xiidra) spironolactone 25 mg tablet 25 mg PO DAILY 01/03/22 04/12/22 History vitamins A,C,Y-dclr-mecewx 14,320 1 cap PO BID 01/03/22 04/12/22 History unit-226 mg-200 unit capsule (PreserVision AREDS) Patient History Medical History Cirrhosis Umbilical hernia Family History Other Family history non-contributory Social History Smoking Status: Never smoker Hx Alcohol Use: No Hx Substance Use: No Preferred Language: Portuguese Communication Ability: Effective Set Up [employer] Machines Required: No Beliefs That Will Affect Care: None Current Living Situation: Family Other Information That Helps Us Care for You: No Feels Safe at Home: Yes Safety Concerns: Feels Safe At This Time Assistive Devices: Glasses and Hearing Aid - Bilateral Review of Systems Review of Systems: All systems reviewed & are unremarkable except as noted in HPI & below Physical Exam Constitutional: WD/WN, vitals as above Respiratory: normal respiratory effort, lungs clear to auscultation Cardiovascular: RRR, no murmur, no edema Gastrointestinal (Abdomen): normal bowel sounds, soft, nontender, no hepatosplenomegaly Skin: no rashes, warm and dry Psychiatric: Orientation: alert and oriented x 3 Results & Data ([facility]) Vital Signs (Past 12 Hours) Vital Signs Temp Pulse Pulse Resp BP BP Pulse Ox 04/13/22 07:42 36.6 C 80 16 94/56 L 93 04/13/22 03:31 36.5 C 75 18 106/62 98 04/13/22 03:32 36.5 C 75 18 106/62 98 04/13/22 02:55 36.5 C 74 18 101/65 97 04/13/22 02:25 36.6 C 78 18 91/47 L 96 04/13/22 02:10 36.5 C 64 19 106/72 94 04/13/22 01:50 36.5 C 78 20 115/66 98 04/13/22 01:45 36.5 C 78 20 115/66 98 04/13/22 00:15 36.5 C 60 16 128/70 98 04/12/22 23:28 36.4 C L 71 18 128/61 99 04/12/22 22:58 36.5 C 61 16 123/66 95 04/12/22 22:43 36.4 C L 66 19 110/67 97 04/12/22 22:26 36.6 C 72 18 112/65 96 O2 Del Method O2 Flow Rate 04/13/22 07:42 Room Air 04/13/22 03:31 0 04/13/22 03:32 0 04/13/22 02:55 0 04/13/22 02:25 04/13/22 02:10 0 04/13/22 01:50 04/13/22 01:45 04/13/22 00:15 04/12/22 23:28 04/12/22 22:58 04/12/22 22:43 04/12/22 22:26 PG Care Time/CCT Total # of Minutes Spent Total Time Spent with Patient: Total time spent is greater than 50% in coordination of care (as documented) at patient's floor/unit and/or counseling patient: Coding Level of Care Code 08061 Initial Inpt Care Lvl 3 Diagnoses 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
[2022-04-13 13:13] LABS: Hemoglobin 9.1 g/dl (12.0-16.0)
--- NOTE | 2022-04-13 13:33 | Surgery Progress Note ---
Date of Service April 13, 2022 Assessment & Plan (1) Umbilical hernia: Plan: Pt here with multiple medical issues, we have been consulted for umbilical hernia that was reduced in the ER Pt is currently wearing abdominal binder, umbilical hernia easily reducible H/o cirrhosis and ascites, anemia, obstructing stone, etc... She is to undergo R ureteral stent placement with urology this afternoon Can f/u with us as an outpt once patient optimized medically for consideration of umbilical hernia repair. no acute surgical intervention indicated from our standpoint at this time Admission and Anticipated Discharge Date Admission Date: April 12, 2022 Supervising Physician Co-Signing Physician Notes Patient seen and examined, labs and imaging reviewed, agree with above. 82-year-old female admitted with cirrhosis with increasing ascites, anemia, and incarcerated hernia that was reduced in the emergency department x2. The hernia has been there for quite some time but increased in pain yesterday. On exam she is afebrile with stable vitals. Abdomen is soft, mildly tender to palpation at hernia site. Hernia easily reduces. CT scan from yesterday personally viewed and interpreted by myself. Fat-containing hernia with increasing ascites and varices. Hernia easily reduces, and the likely reason for her incarceration that may or may not of contained bowel secondary to her increasing ascites. We would recommend getting all of her medical issues under control prior to any surgical intervention. Patients with cirrhosis and uncontrolled ascites are at increased risk of complications following surgery. Surgery will follow peripherally. Subjective Patient resting in bed wearing abdominal binder. States she is to undergo a stent with urology at 3:30. Physical Exam Physical Exam: awake, alert, no distress Gastrointestinal (Abdomen): Percussion/Palpation: + abdomen tender (ttp over umbilical hernia) and abdomen soft + abdominal binder, umbilical hernia easily reducible Results & Data ([facility]) Vital Signs (Past 12 Hours) Vital Signs Temp Pulse Pulse Resp BP BP Pulse Ox 04/13/22 11:40 36.7 C 73 16 104/53 L 95 04/13/22 08:00 04/13/22 07:42 36.6 C 80 16 94/56 L 93 04/13/22 03:31 36.5 C 75 18 106/62 98 04/13/22 03:32 36.5 C 75 18 106/62 98 04/13/22 02:55 36.5 C 74 18 101/65 97 04/13/22 02:25 36.6 C 78 18 91/47 L 96 04/13/22 02:10 36.5 C 64 19 106/72 94 04/13/22 01:50 36.5 C 78 20 115/66 98 04/13/22 01:45 36.5 C 78 20 115/66 98 O2 Del Method O2 Flow Rate 04/13/22 11:40 Room Air 04/13/22 08:00 Room Air 04/13/22 07:42 Room Air 04/13/22 03:31 0 04/13/22 03:32 0 04/13/22 02:55 0 04/13/22 02:25 04/13/22 02:10 0 04/13/22 01:50 04/13/22 01:45 PG Care Time/CCT Total # of Minutes Spent Total Time Spent with Patient: Total time spent is greater than 50% in coordination of care (as documented) at patient's floor/unit and/or counseling patient: Coding Level of Care Code 93884 Subseq Hosp Care Lvl 1 Diagnoses Umbilical hernia K42.9
--- NOTE | 2022-04-13 14:56 | Anesthesiology Consultation ---
Date of Service April 13, 2022 Assessment & Plan (1) Encounter for pre-operative examination: Chart Review Chart Review: Acceptable Risk for Surgery and Patient NOT seen in Pre Admission Testing Consults Requested none History Surgery Operation Date: 04/13/22 12:25 Proposed Procedures p Cystoscopy Right Retrograde Pyelogram Right Ureteral Stent Insertion - Mike Cruz MD Height/Weight Height: 5 ft 1 in Weight: 56 kg Allergies Allergy/AdvReac Type Severity Reaction Status Date / Time Sulfa (Sulfonamide Allergy Intermediate Rash Verified 04/12/22 19:04 Antibiotics) Medications Home Medications Medication Instructions Recorded Confirmed Last Taken ascorbic acid (vitamin C) 500 mg 500 mg PO BID 01/03/22 04/12/22 Unknown tablet (Vitamin C) aspirin 81 mg tablet,delayed 81 mg PO DAILY 01/03/22 04/12/22 Unknown release calcium citrate 315 mg 2 tab PO DAILY 01/03/22 04/12/22 Unknown calcium-vitamin D3 6.25 mcg (250 unit) tablet (Citracal + Vitamin D Maximum) cholecalciferol (vitamin D3) 50 50 mcg PO DAILY 01/03/22 04/12/22 Unknown mcg (2,000 unit) capsule (Vitamin D3) cranberry fruit concentrate 250 mg 250 mg PO BID 01/03/22 04/12/22 Unknown chewable tablet (Azo Cranberry) famotidine 40 mg tablet 40 mg PO DAILY 01/03/22 04/12/22 Unknown ferrous sulfate 325 mg (65 mg 325 mg PO DAILY 01/03/22 04/12/22 Unknown iron) tablet (iron) furosemide 40 mg tablet 40 mg PO DAILY 01/03/22 04/12/22 Unknown gabapentin 100 mg capsule 200 mg PO HS 01/03/22 04/12/22 Unknown levothyroxine 75 mcg tablet 75 mcg PO DAILYBB 01/03/22 04/12/22 Unknown lifitegrast 5 % eye drops in a 1 drp OPB BID 01/03/22 04/12/22 Unknown dropperette (Xiidra) spironolactone 25 mg tablet 25 mg PO DAILY 01/03/22 04/12/22 Unknown vitamins A,C,Z-ebxc-baqmdm 14,320 1 cap PO BID 01/03/22 04/12/22 Unknown unit-226 mg-200 unit capsule (PreserVision AREDS) Active Medications Generic Name Dose Route Start Last Admin Trade Name Reinaldo PRN Reason Stop Dose Admin Ascorbic Acid 500 mg 04/12/22 21:35 04/13/22 09:02 Ascorbic Acid 500 Mg Tab PO 05/12/22 21:34 500 mg BID KEVIN Administration Calcium Citrate 950 mg 04/13/22 09:00 04/13/22 09:02 Calcium Citrate 950 Mg Tab PO 05/13/22 08:59 950 mg DAILY KEVIN Administration Ferrous Sulfate 325 mg 04/13/22 09:00 04/13/22 09:03 Ferrous Sulfate 325 Mg Tab PO 05/13/22 08:59 325 mg DAILY KEVIN Administration Gabapentin 200 mg 04/12/22 21:35 04/12/22 22:51 Gabapentin 100 Mg Cap PO 05/12/22 21:34 200 mg HS KEVIN Administration Ceftriaxone Sodium 2,000 mg/ 70 mls @ 100 mls/hr 04/12/22 22:00 04/13/22 00:42 Dextrose IV 04/22/22 21:59 Infused Q24H KEVIN Infusion Protocol Pantoprazole Sodium 40 mg/ 10 mls @ 5 mls/min 04/13/22 09:00 04/13/22 09:04 Syringe IV 05/13/22 08:59 5 mls/min BID KEVIN Administration Levothyroxine Sodium 75 mcg 04/13/22 06:30 04/13/22 05:28 Levothyroxine Sodium 75 Mcg Tablet PO 05/13/22 06:29 75 mcg DAILYBB KEVIN Administration Miscellaneous 1 each 04/13/22 00:00 04/13/22 12:00 Order Awaiting Action [Lifitegrast [Xiidra] 5 % Dropperette] N/A 05/13/22 00:00 Not Given QS KEVIN Multivitamins/Minerals 1 tab 04/13/22 09:00 04/13/22 09:03 Cerovite Adv Formula Tab PO 05/13/22 08:59 1 tab BID KEVIN Administration Spironolactone 25 mg 04/13/22 09:00 04/13/22 09:04 Spironolactone 25 Mg Tab PO 05/13/22 08:59 25 mg DAILY KEVIN Administration Vitamin D 2,000 units 04/13/22 09:00 04/13/22 09:03 Cholecalciferol 1,000 Units 25 Mcg Tab PO 05/13/22 08:59 2,000 units DAILY KEVIN Administration Past Medical History Medical History Cirrhosis Umbilical hernia Past Family History Family History Other Family history non-contributory Social History Smoking Status: Never smoker Hx Alcohol Use: No Hx Substance Use: No Physical Exam Vital Signs Last Vital Signs Temp 98.1 F 04/13/22 11:40 Pulse 73 04/13/22 11:40 Resp 16 04/13/22 11:40 BP 104/53 L 04/13/22 11:40 Pulse Ox 95 04/13/22 11:40 O2 Del Method 04/13/22 11:40 O2 Flow Rate 0 04/13/22 03:32 Testing Laboratory Results 04/13/22 12:51 04/13/22 05:50 PT 12.7 Seconds (9.0-12.0) H 04/13/22 05:50 INR 1.2 (0.9-1.1) H 04/13/22 05:50 APTT 30.9 Seconds (21.0-31.0) 04/13/22 05:50 Urine Color Yellow 04/12/22 16:00 Urine Appearance Turbid (Clear) A 04/12/22 16:00 Urine pH 5.5 (4.5-7.5) 04/12/22 16:00 Ur Specific Rowe 1.010 (1.000-1.030) 04/12/22 16:00 Urine Protein 1+ (Negative) H 04/12/22 16:00 Urine Glucose (UA) Negative (Negative) 04/12/22 16:00 Urine Ketones Negative (Negative) 04/12/22 16:00 Urine Nitrite Positive (Negative) A 04/12/22 16:00 Ur Leukocyte Esterase 3+ (Negative) H 04/12/22 16:00 Urine WBC (Auto) >30 /hpf (0-5) H 04/12/22 16:00 Urine RBC (Auto) 10-30 /hpf (0-4) H 04/12/22 16:00 U Hyaline Cast (Auto) 1-5 /lpf (0-5) 04/12/22 16:00 U Epithel Cells (Auto) >30 /lpf (0-5) H 04/12/22 16:00 Urine Bacteria (Auto) 4+ (Negative) H 04/12/22 16:00 Blood Type A Positive 04/12/22 17:42 Antibody Screen NEGATIVE 04/12/22 17:42 04/12/22 16:00 Urine Culture - Preliminary Urine,Clean Catch Gram negative bacilli Electrocardiogram Date: 04/12/22 Findings: + NSR @ (51)
[2022-04-13] MEDS ORDERED: fentaNYL citrate 100 MCG/2 ML VIAL IV PRN (15:55)
[2022-04-13] MEDS ORDERED: ePHEDrine sulfate 50 MG/ML AMP IV PRN (15:55)
[2022-04-13] MEDS ORDERED: ATROPINE SULFATE 0.1 MG/ML 10ML SYR IV PRN (15:55)
[2022-04-13] MEDS ORDERED: ONDANSETRON INJ 2 MG/ML 2 ML VIAL IV PRN (15:55)
--- NOTE | 2022-04-13 16:01 | Electrocardiogram Report ---
Test Reason : Blood Pressure : / mmHG Vent. Rate : 074 BPM Atrial Rate : 074 BPM P-R Int : 168 ms QRS Dur : 064 ms QT Int : 410 ms P-R-T Axes : 056 -20 028 degrees QTc Int : 455 ms Poor data quality, interpretation may be adversely affected Sinus rhythm with Premature supraventricular complexes Low voltage QRS Possible Anterolateral infarct (cited on or before 03-JAN-2022) Abnormal ECG When compared with ECG of 03-JAN-2022 22:10, Premature supraventricular complexes are now Present Criteria for Inferior infarct are no longer Present Questionable change in initial forces of Lateral leads Confirmed by Enrico Beltran ([id number]) on 04/13/2022 4:01:51 PM Referred By: Confirmed By:Enrico Beltran
[2022-04-13] MEDS ORDERED: LIDOCAINE 2% MPF LOCAL 5 ML VIAL INFIL ONE (16:07)
[2022-04-13] MEDS ORDERED: ONDANSETRON INJ 2 MG/ML 2 ML VIAL ONE (16:07)
[2022-04-13] MEDS ORDERED: PROPOFOL IV EMULSION 10 MG/ML 20 ML VIAL IV ONE (16:07)
[2022-04-13] MEDS ORDERED: fentaNYL citrate 100 MCG/2 ML VIAL ONE (16:07)
[2022-04-13] MEDS ORDERED: DEXAMETHASONE SOD INJ 4 MG/ML VIAL ONE (16:31)
--- NOTE | 2022-04-13 17:31 | Operative Report ---
PG Post Operative Report Pre & Post Diagnosis Operation Date: 04/13/22 12:25 Pre-Op Diagnosis: Hydronephrosis Post-Op Diagnosis: Hydronephrosis I identified the patient and participated in the time-out.: Yes Procedure Operation Date: 04/13/22 12:25 Actual Procedures p Cystoscopy, Right Ureteral Stent Insertion(Right) - Mike Cruz MD Surgeon Mike Cruz MD Claims Adjustor none Estimated Blood Loss 0 Findings Consistent with Post-Op Diagnosis Specimens none Description of Procedure The patient was identified in the preoperative holding area, appropriate informed consents were reviewed and completed and the patient was transferred to the operative suite. Upon arrival, appropriate antibiotics and anesthesia were administered and the patient was placed in dorsal lithotomy position and prepped and draped in sterile fashion. To begin the case a 22 Mongolian cystoscope was passed per urethra. Inspection revealed cloudy urine. I irrigated the bladder copiously which allowed better inspection of the mucosa. There was no mucosal disease although there was some hyperemia consistent with infection. Ureteral orifices were identified in orthotopic position and the right UO was cannulated with a sensor wire and a 5 Mongolian open-ended catheter. The wire advanced to the kidney without difficulty. There was a discharge of murky urine as the wire advanced. I then placed a 6 Mongolian by 24 cm stent over the wire seeing a good curl in the kidney as well as the bladder. I concluded the case and she was reversed of anesthesia and taken to the recovery room in stable condition. There were no complications. I attest to the content of the Intraoperative Record and any orders documented therein. Any exceptions are noted below.
--- NOTE | 2022-04-13 17:40 | Fluoroscopy Report ---
FL KUB CLINICAL HISTORY: RT CYSTO/STENT COMPARISON STUDY: None. FLUOROSCOPY TIME: 2 seconds. FINDINGS: 3 fluoroscopic spot images of the abdomen and pelvis demonstrate placement of a right urete ral stent. Only the proximal portion of the stent is identified but is likely in good position. IMPRESSION: Fluoroscopic assistance provided for right ureteral stent placement. ACT 112: Negative or not required by law. Electronically signed by: Issa Sheffield M.D. 04/13/2022 5:38 PM
--- NOTE | 2022-04-13 18:13 | Anesthesiology Progress Note ---
Date of Service April 13, 2022 Anesthesia Post Procedure Vital Signs Vital Signs: Temp Pulse Pulse Pulse Pulse Resp BP 04/13/22 18:07 71 18 04/13/22 17:55 97.5 F L 75 16 04/13/22 17:40 97.5 F L 70 14 04/13/22 17:31 96.8 F L 81 12 04/13/22 16:22 98.4 F 74 16 04/13/22 15:39 98.2 F 75 18 04/13/22 11:40 98.1 F 73 16 04/13/22 08:00 04/13/22 07:42 97.9 F 80 16 04/13/22 03:31 97.7 F 75 18 106/62 04/13/22 03:32 97.7 F 75 18 106/62 04/13/22 02:55 97.7 F 74 18 101/65 04/13/22 02:25 97.9 F 78 18 91/47 L 04/13/22 02:10 97.7 F 64 19 106/72 04/13/22 01:50 97.7 F 78 20 115/66 04/13/22 01:45 97.7 F 78 20 115/66 04/13/22 00:15 97.7 F 60 16 128/70 04/12/22 23:28 97.5 F L 71 18 128/61 04/12/22 22:58 97.7 F 61 16 123/66 04/12/22 22:43 97.5 F L 66 19 110/67 04/12/22 22:26 97.9 F 72 18 112/65 04/12/22 21:22 97.9 F 70 20 04/12/22 21:36 04/12/22 21:15 78 109/65 04/12/22 20:35 70 14 04/12/22 18:30 109 H 18 BP BP Pulse Ox O2 Del Method O2 Flow Rate 04/13/22 18:07 92/55 L 95 Room Air 04/13/22 17:55 106/64 95 Room Air 04/13/22 17:40 107/56 L 95 Room Air 04/13/22 17:31 111/59 L 95 Oxymask 5 04/13/22 16:22 115/71 98 Room Air 04/13/22 15:39 115/64 97 Room Air 04/13/22 11:40 104/53 L 95 Room Air 04/13/22 08:00 Room Air 04/13/22 07:42 94/56 L 93 Room Air 04/13/22 03:31 98 0 04/13/22 03:32 98 0 04/13/22 02:55 97 0 04/13/22 02:25 96 04/13/22 02:10 94 0 04/13/22 01:50 98 04/13/22 01:45 98 04/13/22 00:15 98 04/12/22 23:28 99 04/12/22 22:58 95 04/12/22 22:43 97 04/12/22 22:26 96 04/12/22 21:22 124/69 99 Room Air 04/12/22 21:36 97 Room Air 04/12/22 21:15 97 Room Air 04/12/22 20:35 120/59 L 97 Room Air 04/12/22 18:30 114/57 L 98 Room Air Transfer of Care Handoff Completed per policy Notes Mental Status: alert / awake / arousable and participated in evaluation Patient Amnestic to Procedure: Yes Nausea / Vomiting: adequately controlled Pain: adequately controlled Airway Patency, RR, SpO2: stable & adequate BP & HR: stable & adequate Hydration State: stable & adequate Anesthetic Complications: no major complications apparent and Pt Satisfied with anesthetic care
[2022-04-13 18:34] LABS: Hematocrit (blood only) 27.3 % (34.1-44.9)
--- NOTE | 2022-04-13 19:25 | Hospitalist Progress Note ---
Date of Service April 13, 2022 Assessment & Plan (1) Umbilical hernia: Plan: This was the main cause of presentation to the ER. Causing pain and bowel obstruction on admission. Easily reducible in the ER. Continue abdominal binder. Appreciate surgical management of this. (2) Incarcerated hernia: Plan: resolved with reduction as above (3) UTI (urinary tract infection): Plan: Urine culture - GNB, pending full identification and sensitivities Continue ceftriaxone 2g IV Despite grossly infected urine and hydronephrosis patient is surprisingly not septic and actually doing relatively well. In fact her only admitting complaint was related to her hernia and this was essentially an incidental finding. (4) Hydronephrosis due to obstruction of ureter: Plan: Appreciate urology management of this. Planning on ureteral stent placement today. (5) Normocytic anemia: Plan: Hemoglobin drop from 10.0 in December -> 6.5 - asymptomatic other than some fatigue which could be present for other reasons. Reports previously needing 2 units of blood in [place] but without a diagnosis at that time - ?thinks she was under the care of a forensic toxicologist. 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 Will follow up with GI as outpatient. (7) Esophageal varices: Plan: Noted. Doubtful bleeding from this. No melena or bright red blood in stool or hematemesis. Will get fecal occult blood. (8) Mitral valve prolapse: Plan: - History noted by patient ; no TTE available - Do not believe there are presently findings to suggest CHF - will monitor (9) Small bowel obstruction: Plan: resolved with reduction in hernia (10) RAMAN (acute kidney injury): Plan: Suspected pre-renal. Will continue to hold diuretics and trend BMP Plan VTE Prophylaxis - deferred as GI bleed and hemoglobin stability not yet established, SCDs Diet - NPO pending ureteral stent Disposition - continued admission to PCU Admission and Anticipated Discharge Date Admission Date: April 12, 2022 Subjective Regarding her hernia - she reports the pain has resolved. Passing gas. No nausea or vomiting. Using abdominal binder. Regarding her UTI/stone - Patient reports feeling well. No fever, chills or urinary complaints. No right sided pain. She reports having her first kidney stone which was painful but more recently she reports needing a ureteral stent for a left sided kidney stone which was also not painful. Unclear if this was related to an infection. Regarding her anemia - Her daughter at bedside have noticed she has been getting fatigued but put this down to her liver cirrhosis. She denies any melena, hemoptysis, epistaxis, hematemesis or bright red blood in stool. No chest pain, shortness of breath or dizziness. She notes previously needing 2 units of blood in [place] for anemia but no known cause of this. Review of Systems Review of Systems: All systems reviewed & are unremarkable except as noted in Subjective Physical Exam Constitutional: WD/WN, vitals as above + frail appearing Eyes: + anicteric sclerae; normal pupil size ENMT: external ear and nose normal, oropharynx normal Neck: trachea midline, no thyromegaly Respiratory: normal respiratory effort, lungs clear to auscultation Cardiovascular: Rate/Rhythm: regular rate and regular rhythm Heart Sounds: no murmur Vessels: no JVD Extremities: normal capillary refill; no calf tenderness and no pedal edema Gastrointestinal (Abdomen): Inspection/Auscultation: abdomen normal to inspection and normal bowel sounds; abdomen not distended Percussion/Palpation: + abdomen tender (mild over umbilcal region over abdominal binder) and abdomen soft; no guarding and abdomen not rigid Musculoskeletal: no cyanosis or clubbing, extremities motor strength 5/5 Skin: no rashes, warm and dry Neurologic: moves all extremities and awake; no focal motor deficits and not confused Psychiatric: A+Ox3, euthymic affect Genitourinary: no CVA tenderness Results & Data Results & Data ([facility]) Vital Signs (Past 12 Hours) Vital Signs Temp Pulse Pulse Resp BP BP Pulse Ox 04/13/22 11:40 36.7 C 73 16 104/53 L 95 04/13/22 08:00 04/13/22 07:42 36.6 C 80 16 94/56 L 93 04/13/22 03:31 36.5 C 75 18 106/62 98 04/13/22 03:32 36.5 C 75 18 106/62 98 04/13/22 02:55 36.5 C 74 18 101/65 97 04/13/22 02:25 36.6 C 78 18 91/47 L 96 04/13/22 02:10 36.5 C 64 19 106/72 94 04/13/22 01:50 36.5 C 78 20 115/66 98 04/13/22 01:45 36.5 C 78 20 115/66 98 O2 Del Method O2 Flow Rate 04/13/22 11:40 Room Air 04/13/22 08:00 Room Air 04/13/22 07:42 Room Air 04/13/22 03:31 0 04/13/22 03:32 0 04/13/22 02:55 0 04/13/22 02:25 04/13/22 02:10 0 04/13/22 01:50 04/13/22 01:45 PG Care Time/CCT Total # of Minutes Spent Total Time Spent with Patient: Total time spent is greater than 50% in coordination of care (as documented) at patient's floor/unit and/or counseling patient: Coding Level of Care Code 38853 Subseq Hosp Care Lvl 3 Diagnoses Umbilical hernia K42.9 Incarcerated hernia K46.0 UTI (urinary tract infection) N39.0 Hydronephrosis due to obstruction of ureter N13.1 Normocytic anemia D64.9 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
--- NOTE | 2022-04-13 19:45 | Billing Data ---
Date of Service April 12, 2022 Coding Level of Care Code 41146 Initial Inpt Care Lvl 3
[2022-04-13] MEDS: GABAPENTIN 100 MG CAP PO SCH (20:13)
[2022-04-13] MEDS: cefTRIAXone SODIUM 2,000 MG in DEXTROSE 5% 50 ML IV SCH (21:51)
[2022-04-14] MEDS: LEVOTHYROXINE SODIUM 75 MCG TABLET PO SCH (05:46)
[2022-04-14 06:06] LABS: Basophils # (auto) 0.06 K/uL (0-0.2); Basophils % (auto) 1.6 %; Eosinophils # (auto) 0.16 K/uL (0-0.50); Eosinophils % (auto) 4.3 %; Hematocrit (blood only) 25.9 % (34.1-44.9); Hemoglobin 8.3 g/dl (12.0-16.0); Immature Granulocytes # (auto) 0.01 K/uL (0.00-0.02); Immature Granulocytes % (auto) 0.3 %; Lymphocytes # (auto) 0.66 K/uL (1.2-3.4); Lymphocytes % (auto) 17.9 %; Mean Corpuscular Hemoglobin 28.2 pg (25.0-34.0); Mean Corpuscular Volume 88.1 fL (80.0-100.0); Mean Platelet Volume 9.4 fL (9.4-12.3); Monocytes # (auto) 0.94 K/uL (0.24-0.82); Monocytes % (auto) 25.5 %; Neutrophils # (auto) 1.86 K/uL (1.4-6.5); Neutrophils % (auto) 50.4 %; Platelet Count 173 K/uL (130-400); RDW Coefficient of Variation 16.1 % (11.5-14.5); RDW Standard Deviation 52.2 fL (36.4-46.3); Red Blood Count 2.94 M/uL (3.93-5.22); Reticulocyte % 2.2 % (0.5-2.0); Reticulocytes # 0.06 10^6/uL (0.02-0.10); White Blood Count 3.69 K/ul (4.8-10.8)
[2022-04-14 06:33] LABS: Albumin Globulin Ratio 0.6 (0.9-2); Albumin Level 2.2 gm/dl (3.4-5.0); Bilirubin,Total 0.5 mg/dl (0.2-1.0); Creatinine Clr Calc Pharmacy 22.8 ml/min; Est GFR (African American) 34.6 ml/min; Est GFR (Non-African American) 29.9 ml/min; Globulin 3.7 gm/dl (2.5-4.0); Magnesium 1.9 mg/dl (1.7-2.4); Phosphorus 3.2 mg/dl (2.5-4.9); Total Protein 5.9 gm/dl (6.0-8.3)
[2022-04-14 06:51] LABS: Folate (Folic Acid) 11.78 ng/ml (>5.38)
--- NOTE | 2022-04-14 08:40 | Urology Progress Note ---
Date of Service April 14, 2022 Assessment & Plan (1) Hydronephrosis due to obstruction of ureter: (2) UTI (urinary tract infection): Plan 82yo F with a suspected UTI and 2 cm obstructing calculus at the right ureteropelvic junction causing moderate hydronephrosis. -Postop day #1 status post cystoscopy, right ureteral stent placement. -Tolerating the ureteral stent with minimal bother. -Afebrile and hemodynamically stable. -Labs reviewed- Wbc 3.69, Creatinine 1.61. Continue to trend. -Urine culture preliminary with Citrobacter. -Continues on IV ceftriaxone, follow culture. -Voiding spontaneously, continue to monitor. Bladder scan prn. -Will arrange outpatient follow-up with our service for definitive stone treatment. -Continue supportive care, antibiotic therapy, and prn pain management. -Urology will follow peripherally. Please contact us any further questions, concerns, or changes in patient's status. Admission and Anticipated Discharge Date Admission Date: April 12, 2022 Supervising Physician Co-Signing Physician Notes I have discussed Ms. Dunaway's case with NICOLÁS Morales and agree with the above documentation. Continue antibiotics and supportive care for now. We will coordinate stone removal as an outpatient. Subjective Patient examined at bedside this AM. Awake, resting in bed on arrival. No acute distress. Denies any significant pain at present. No fevers or chills. No nausea or vomiting. Tolerating diet. Voiding without issue and feels she is emptying her bladder. States she did have a few episodes of hematuria and dysuria, however this is since resolved. No additional complaints at time of exam Review of Systems Constitutional: as per Subjective / HPI Gastrointestinal: as per Subjective / HPI Genitourinary: as per Subjective / HPI Physical Exam Constitutional: no acute distress Respiratory: normal respiratory effort; no respiratory distress and no labored breathing Neurologic: awake Psychiatric: Orientation: alert and oriented x 3 Results & Data ([facility]) Vital Signs (Past 12 Hours) Vital Signs Temp Pulse Pulse Pulse Resp BP BP 04/14/22 08:04 37.0 C 75 19 109/60 04/14/22 04:00 37.2 C 83 16 110/61 04/13/22 23:29 36.6 C 78 18 114/71 04/13/22 23:19 75 Pulse Ox O2 Del Method 04/14/22 08:04 92 Room Air 04/14/22 04:00 91 Room Air 04/13/22 23:29 92 Room Air 04/13/22 23:19 PG Care Time/CCT Total # of Minutes Spent Total Time Spent with Patient: Total time spent is greater than 50% in coordination of care (as documented) at patient's floor/unit and/or counseling patient: Coding Level of Care Code 33070 Subseq Hosp Care Lvl 2 Diagnoses Hydronephrosis due to obstruction of ureter N13.1 UTI (urinary tract infection) N39.0
[2022-04-14] MEDS: CALCIUM CITRATE 950 MG TAB PO SCH (08:55)
[2022-04-14] MEDS: ASCORBIC ACID 500 MG TAB PO SCH (08:55)
[2022-04-14] MEDS: CHOLECALCIFEROL 1,000 UNITS 25 MCG TAB PO SCH (08:55)
[2022-04-14] MEDS: CEROVITE ADV FORMULA TAB PO SCH (08:55)
[2022-04-14] MEDS: PANTOprazole 40 MG in SYRINGE 0 ML IV SCH (08:55)
[2022-04-14] MEDS: FERROUS SULFATE 325 MG TAB PO SCH (08:55)
[2022-04-14] MEDS: SPIRONOLACTONE 25 MG TAB PO SCH (08:55)
--- NOTE | 2022-04-14 11:56 | Discharge Summary ---
Date of Service April 14, 2022 Admission HPI Per Admitting Provider This is an 82-year-old female with a history of VILLAGOMEZ cirrhosis complicated by known hemorrhoids and esophageal varices, previous pleural effusions requiring pleurocentesis, CKD, nephrolithiasis, hypothyroidism who presented to [facility] for evaluation of abdominal pain. Patient is accompanied by her daughter, who contributes to the history. She says over the last several weeks, she has had a left-sided abdominal pain that she attributed to her ascites. However, it continued to get worse through today, when it would not go away. She describes it as a sharp sensation that radiated to her back. She denies any feelings of persistent nausea or vomiting, although did feel queasy. She denies any recent fevers, chills, sweats. She denies any urinary symptoms, including dysuria, urinary frequency, urinary urgency, or hematuria. She denies any chest pain, and endorses a baseline shortness of breath that is not changed over the last several months. She denies any recent changes in medications. Patient does say that she is struggled with hemorrhoids since she was young. However, she does say that she continues to have hematochezia on occasion, and thinks she may have had darkly discolored/black appearing stools. She is unable to quantify how recent this was. Denies any lightheadedness or dizziness. Denies any hematemesis. Does report intermittent nausea on occasion. She does report receiving a transfusion once in the past but does not remember why (doesn't think GIB). Thinks it was before 2015. Medications reviewed and include vitamin C, aspirin, vitamin D, famotidine, iron, furosemide, gabapentin, levothyroxine, spironolactone. Upon arrival to the emergency department, patient's vital signs were normal.Admission labs were significant for leukopenia 4.3 with relative monocytosis (0.94) and lymphopenia (0.75), normocytic anemia 7.0 (notable drop from 10.0 on 01/03/2022), platelet 230. PT mildly elevated 12.1 with high normal INR 1.1. Sodium on arrival 134. BUN 36/creatinine 1.36 (notably increased from 01/03 with creatinine 1.13). Serologic normal values of AST and ALT with elevation of ALP at 183, albumin 2.7. Urine revealed turbid appearance with 1+ protein, 3+ blood, positive nitrites, 3+ leuk esterase, over 30 white blood cells and 4+ bacteria. CT of the abdomen and pelvis revealed "fat and fluid containing ventral hernia", additionally demonstrated proximal small loops of bowel that are mildly distended and fluid-filled intermixed with decompressed distal small bowel, concerning for resolving bowel obstruction; cirrhotic liver morphology with small to moderate volume of ascites, esophageal varices, and hemorrhoids concerning for portal hypertension; moderate hiatal hernia; small loculated right pleural effusion; possible small amount of right-sided nonspecific colitis; 2 cm obstructing calculus at the right ureteropelvic junction which causes moderate hydronephrosis in the upper pole of the collecting system; urothelial thickening and enhancement of the right ureter; cholelithiasis; mildly enlarged mesenteric and retroperitoneal lymph nodes. She was given Protonix, acetaminophen, sodium chloride. Emergency physician spok e with general surgery, who recommended medical stabilization prior to any sort of surgical intervention for possible incarcerated hernia. Principal Diagnosis Umbilical hernia with SBO, Right ureterolithiasis, UTI, Severe anemia Discharge Exam Vitals reviewed Gen: [AAOx3, NAD] HEENT: [anicteric sclerae, EOMI] CV: [RRR no mgr nl S1S2] Pulm: [CTAB no wcr] Abd: [+BS soft NT ND no masses + reducible umbilical hernia with mild TTP] Ext: [no edema, 2+ DP pulses] Skin: [no rashes, warm/dry] Neuro: [full strength throughout] Discharge Data Allergies Allergy/AdvReac Type Severity Reaction Status Date / Time Sulfa (Sulfonamide Allergy Intermediate Rash Verified 04/12/22 19:04 Antibiotics) Consultations 04/12/22 18:31 ED Decision to Admit Stat 04/12/22 19:57 Consult Gastroenterology Routine Consult General Surgery Routine Consult Urology Routine Procedures Performed Operation Date: 04/13/22 12:25 Actual Procedures p Cystoscopy, Right Ureteral Stent Insertion(Right) - Mike Cruz MD Ordered Studies 04/12/22 16:17 CT abd pelvis IV con only Stat 04/13/22 FL KUB Routine Hospital Course (1) Umbilical hernia: This was the main cause of presentation to the ER. Causing pain and bowel obstruction on admission. Easily reducible in the ER. Continue abdominal binder. Appreciate surgical management of this. Plan to f/u as outpt for surgical correction once medically stable (2) Incarcerated hernia: resolved with reduction as above moving bowels, no abd pain tolerating reg diet (3) UTI (urinary tract infection): Urine culture - growing Citrobacter and alpha Strep treatd with ceftriaxone 2g IV daily and will dc on po cefdinir x 8 more days with ureteral stent placement for hydronephrosis and stone treatment f/u with Urology as outpt in 1 week (4) Hydronephrosis due to obstruction of ureter: Appreciate urology management of this. s/p ureteral stent placement (5) Normocytic anemia: Hemoglobin drop from 10.0 in December -> 6.5 - asymptomatic other than some fatigue which could be present for other reasons. Reports previously needing 2 units of blood in [place] but without a diagnosis at that time - ?thinks she was under the care of a compliance administrator. Transferrin saturation 23.4% on admission, ferritin 15.2 ng/ml consistent with low iron stores received 2 units pRBCs here and hgb remains stable at 8.3 x 2 days prior to discharge received pantoprazole 40mg IV BID but no epigastric pain, indigestion or melena B12, folate here normal Will likely need hematology follow up on discharge. 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 Will follow up with GI as outpatient. (7) Esophageal varices: Noted. Doubtful bleeding from this. No melena or bright red blood in stool or hematemesis. (8) Mitral valve prolapse: - History noted by patient ; no TTE available - Do not believe there are presently findings to suggest CHF - will monitor (9) Small bowel obstruction: resolved with reduction in hernia (10) RMAAN (acute kidney injury): Suspected pre-renal. Med Surg Nurse 1.6 on day of dc which is not too far off her baseline Was NPO for procedure etc and remained on aldactone here. ok to restart home lasix, continue aldactone and follow BMP as outpt in 1 week with PCP Plan VTE Prophylaxis - SCDs. Disposition - dc to home Total Time Total Time Spent Total Time Spent (In Minutes): 35 min Discharge Plan Discharge Items Patient Disposition: Home - Self-Care Reason For Visit: CHEST PAIN, SOB Discharge Diagnosis: Umbilical hernia with bowel obstruction, obstructing kidney stone, severe anemia, UTI Activity: Resume your previous activity Non-emergency contact: Primary Care Provider, Surgeon and Urologist Call non-emergency contact if: you have any medication questions and your symptoms worsen Follow-up/Referrals: Mike Cruz MD [Physician] - (Dr. Cruz's office should be contacting you with an appointment date and time for your stent removal.) Loco Heath DO, KELLEY [Physician] - (Please call to schedule an appointment to discuss your hernia repair when your PCP thinks you are medically stable to do so.) Zach Gomez [Primary Care Provider] - Crista Kim MD [Physician] - (Please call to schedule an appointment as needed for your severe anemia.) Diet: Low Sodium (2gm) Addtl Attending Provider Instructions: Please finish out 8 more days of the antibiotic called cefdinir twice a day for your UTI. You will need follow up with your Urologist to have your stent removed. Your PCP should check your kidney function and blood count in 1 week to ensure they are remaining stable. Pending Studies at Discharge: No Stand-Alone Forms: [employer], Smoking Cessation Medications and DC Order Prescriptions: New cefdinir 300 mg capsule 300 mg PO BID Qty: 16 0RF Continued furosemide 40 mg tablet 40 mg PO DAILY famotidine 40 mg tablet 40 mg PO DAILY spironolactone 25 mg tablet 25 mg PO DAILY levothyroxine 75 mcg tablet 75 mcg PO DAILYBB ascorbic acid (vitamin C) [Vitamin C] 500 mg tablet 500 mg PO BID gabapentin 100 mg Capsule 200 mg PO HS PreserVision AREDS [id number] capsule 1 cap PO BID cholecalciferol (vitamin D3) [Vitamin D3] 50 mcg (2,000 unit) capsule 50 mcg PO DAILY Xiidra 5 % dropperette 1 drp OPB BID ferrous sulfate [iron] 325 mg (65 mg iron) tablet 325 mg PO DAILY calcium citrate-vitamin D3 [Citracal + D Maximum] 315 mg-6.25 mcg (250 unit) tablet 2 tab PO DAILY Azo Cranberry 250 mg tablet,chewable 250 mg PO BID Discontinued aspirin [Aspirin Low-Strength] 81 mg Tablet,Delayed Release (Dr/Ec) 81 mg PO DAILY Discharge Orders: Discharge Order (Routine); Ordered 04/14/22 Ordered By: Kanchan Loza Admission Data Admit Date/Time: 04/12/22 19:57 Attending Provider: Kanchan Loza Admit Provider: Brian Agosto Primary Care Provider: Zach Gomez Other Providers: Ricardo Farmer ; Ashanti Purcell ; Harris Rodgers ; Albertina Weber ; Jennifer Preston ; Kiesha Brown ; Ronda Whitley ; Rico Martinez ; Parminder Mayo ; Zohreh Whitten ; Nick Moore ; Jerry Saba ; Heidi Aguilar ; Soumya Kidd ; Miguel Thomson ; Rei Diaz ; Anamaria Noyola ; Ling Garcia ; Paige Quiñones ; Giulia Lopez ; Court Argueta ; Waldemar Desai ; Ziggy Orozco ; Zelalem Franks ; Juanis Deutsch ; Johnny Jones Jr ; Joe Damon ; Ziggy Vega ; Austen Vallecillo ; Christopher Erickson Jr ; Mak Martinez ; Loco Heath ; Bridgett Tuttle ; Ryan Alvarez ; Richard Lancaster ; Enrico Shah ; Loco Lr ; Mike Cruz ; Linh Martinez ; Leonel Aguilar ; Jenni Sheth ; Kika Monroy ; Simón Lira ; Rusty Jauregui ; Lisa Lam ; Binh Raza ; Kenny Clifford Coding Level of Care Code D/C DAY MANAGEMENT >30 MINS Diagnoses Umbilical hernia K42.9 Incarcerated hernia K46.0 UTI (urinary tract infection) N39.0 Hydronephrosis due to obstruction of ureter N13.1 Normocytic anemia D64.9 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
== END 2022-04-14 13:10 | disposition home or self-care (01) | DRG 660 ==
LOC: ED 15:03 → 2S 19:57 → SUATTDRO 19:57 → 2S 21:15

== ENCOUNTER 2023-12-08 12:25 | Observation (INO) ==
--- NOTE | 2023-12-08 12:46 | Emergency Department Note ---
History of Present Illness General Chief complaint: Animal Bite Stated complaint: DOG BITE, RT HAND Time Seen by Provider: 12/08/23 12:32 History of Present Illness Maximum Pain Intensity: 5 Home Medications Medication Instructions Recorded Confirmed Type cholecalciferol (vitamin D3) 50 50 mcg PO QAM 01/03/22 12/06/23 History mcg (2,000 unit) capsule (Vitamin D3) cranberry fruit concentrate 250 mg 250 mg PO BID 01/03/22 12/06/23 History chewable tablet (Azo Cranberry) ferrous sulfate 325 mg (65 mg 325 mg PO QAM 01/03/22 12/06/23 History iron) tablet (iron) ascorbic acid (vitamin C) 500 mg mg PO 02/24/23 12/06/23 History capsule calcium citrate 315 mg 1 tab PO BID 02/24/23 12/06/23 History calcium-vitamin D3 6.25 mcg (250 unit) tablet (Citracal + Vitamin D Maximum) famotidine 40 mg tablet 40 mg PO BID 02/24/23 12/06/23 History lifitegrast 5 % eye drops in a 1 drp ophthalmic (eye) BID 02/24/23 12/06/23 History dropperette (Xiidra) multivitamin with iron [Daily PO DAILY 02/24/23 12/06/23 History Vitamin with Iron] vitamin A-vit C-vit E-zinc-Cu PO DAILY 02/24/23 12/06/23 History [Vision-Phillip Preserve] nadolol 20 mg tablet 20 mg PO DAILY #90 tabs 05/24/23 12/06/23 Rx spironolactone 25 mg tablet 25 mg PO DAILY #90 tabs 05/24/23 12/06/23 Rx aspirin 81 mg tablet,delayed 81 mg PO DAILY 09/01/23 12/06/23 History release levothyroxine 75 mcg tablet 75 mcg PO DAILY #90 tabs 10/03/23 12/06/23 Rx gabapentin 100 mg capsule 200 mg (2 x 100 mg) PO HS #180 caps 11/03/23 12/06/23 Rx Saccharomyces boulardii [Daily PO 12/06/23 12/06/23 History Probiotic (S. boulardii)] furosemide 20 mg tablet 20 mg PO QAM #90 tabs 12/07/23 Rx Allergies Allergy/AdvReac Type Severity Reaction Status Date / Time Sulfa (Sulfonamide Allergy Mild Rash Verified 12/06/23 10:23 Antibiotics) Past Med/Surg History Problem List (Updated 12/08/23 @ 14:25 by Sj Castro PA-C) Dog bite of right hand with infection (Acute) Cellulitis of right hand (Acute) Mild cognitive impairment GERD (gastroesophageal reflux disease) Hypothyroidism Vitamin D deficiency Anemia Macular degeneration Cirrhosis VILLAGOMEZ Portal hypertension (Acute) Incarcerated hernia (Acute) Normocytic anemia Disorder of kidney Stone in renal pelvis Umbilical hernia Medical History Hearing deficit Hx of intestinal obstruction CKD (chronic kidney disease) History of kidney injury Hypertension History of COVID-19 08/2020 RESOVED Hypothyroidism Right ureteral calculus Mitral valve prolapse Dx 40+ years ago, "no issues" per pt ECHO 01/05/22- showed mild posterior MVP; mitral stenosis absent, mild MR (jet is posteriorly directed) Esophageal varices Per records, pt denies 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 Anemia Has been working with PCP and heme/onc per records- most recent Hgb improved to 11.7 Surgical History S/P hysterectomy S/P cystoscopy with ureteral stent placement History of esophagogastroduodenoscopy (EGD) Hx of colonoscopy Hx of lithotripsy History of foot surgery Hx of carpal tunnel repair History of partial hysterectomy Hx of tubal ligation Family History Sister Colorectal cancer Mother Myocardial infarction Father Myocardial infarction Brother Myocardial infarction Other Family history non-contributory No family history of adverse response to anesthesia Denies family history of Ovarian cancer Prostate cancer Breast cancer Social History Smoking Status: Never smoker Second Hand Exposure: No; Do You Dip or Chew Tobacco: No; Hx Alcohol Use: No Hx Substance Use: No Preferred Language: Kiswahili Communication Ability: Effective Visual Impairment: Partially Limited Hearing Ability: Use of Hearing Aid Vascular Sonographer Required: No Beliefs That Will Affect Care: None marital status: / Current Living Situation: Family Current Living Situation Comment: daughter, grandaughter/, 2 great- grandchildren 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 How many Children do You have: 2 Feels Safe at Home: Yes Diet: ideal protein Diet Comment: boost q morning w/ yougurt- attempts high protein caffeine: Yes (soda) during the past year weight has: remained stable Dental Care, Regularly: Yes Physical Activity Frequency: Daily Physical Activity Frequency Comment: helps w/ great grandchilden Seatbelt Use: always Assistive Devices: Hearing Aid - Bilateral Review of Systems A total of 10 systems reviewed and were otherwise negative Physical Exam Vital Signs Vital Signs - 24 hr 12/08/23 12:28 Temperature 36.8 C Temperature Source Temporal Artery Scan Pulse Rate 62 Respiratory Rate 18 Respiratory Effort / Characteristics Non-Labored Spontaneous Respiratory Depth Normal Blood Pressure 120/65 Blood Pressure Mean 83 Blood Pressure Position Sitting Pulse Oximetry 97 Oxygen Delivery Method Room Air Sepsis Recent Fever Within 48 Hours No Sepsis New/Unexplained Change in Mental Status No Sepsis Action Taken by Nursing No Action Required VITAL SIGNS - Vital signs and nursing notes were reviewed. Stable and afebrile. GENERAL - 83-year-old female appearing her stated age who is in no acute distress. Communicates well with provider and answers questions appropriately. SKIN -diffuse erythema to the dorsal aspect of the right hand extending into the proximal dorsal aspect of all digits. Erythema also tracks proximally into the dorsal soft tissues of the wrist. There is an approximate 1 cm open wound to the dorsum of the right hand within the soft tissues between metacarpals 2 and 3. There is a foul-smelling odor to the wound. Yellow serosanguineous drainage. No purulence. No crepitus. HEAD - NC/AT. EYES - Sclera anicteric. EXTREMITIES - No clubbing or peripheral cyanosis. Skin as above. Tenderness to the dorsal right hand. Patient able to fully flex and extend right hand as well as all digits. Right radial pulse within normal limits. Cap refill of all digits of the right hand within normal limit. +5/5 strength noted in UE/LE bilaterally. NEUROLOGIC -sensory intact to light touch throughout the right upper extremity without deficit. PSYCH -alert, oriented and pleasant on exam Course Administered Medications Discontinued Medications Diphtheria/Pertussis/Tetanus Vacc (Diphther/Tetan/Pertus Vaccine (Tdap, Adol/Adult) 0.5ml) 0.5 ml IM .ONCE ONE Stop: 12/08/23 12:47 Last Admin: 12/08/23 13:26 Dose: 0.5 ml Documented By: ALEXIS Ampicillin Sodium/Sulbactam Sodium 3,000 mg/ Sodium Chloride 100 mls @ 200 mls/hr IV NOW STA Stop: 12/08/23 13:07 Last Infusion: 12/08/23 14:12 Dose: Infused Documented By: Admin: 12/08/23 13:26 Dose: 200 mls/hr Documented By: ALEXIS Medical Decision Making Laboratory Data 12/08/23 13:04 12/08/23 13:04 Lab Results 12/08/23 Range/Units 13:04 WBC 6.17 (4.8-10.8) K/ul RBC 3.46 L (4.20-5.40) M/uL Hgb 11.8 L (12.0-16.0) g/dl Hct 34.7 L (37.0-47.0) % MCV 100.3 H (80.0-100.0) fL MCH 34.1 H (25.0-34.0) pg MCHC 34.0 (32.0-36.0) g/dL RDW Std Deviation 50.8 H (36.4-46.3) fL RDW Coeff of Bob 13.9 (11.5-14.5) % Plt Count 128 L (130-400) K/uL MPV 10.7 (9.4-12.4) fL Immature Gran % (Auto) 0.3 % Neut % (Auto) 52.5 % Lymph % (Auto) 19.4 % [place] % (Auto) 26.1 % Eos % (Auto) 1.1 % Baso % (Auto) 0.6 % Neut # (Auto) 3.23 (1.40-6.50) K/uL Lymph # (Auto) 1.20 (1.20-3.40) K/uL [place] # (Auto) 1.61 H (0.11-0.59) K/uL Eos # (Auto) 0.07 (0.00-0.50) K/uL Baso # (Auto) 0.04 (0.00-0.20) K/uL Immature Gran # (Auto) 0.02 (0.01-0.20) K/uL Sodium 133 L (136-145) mmol/L Potassium TNP Chloride 105 (98-107) mmol/L Carbon Dioxide 23 (21-32) mmol/L Anion Gap 5 (3-11) BUN 54 H (6-23) mg/dl Creatinine 1.56 H (0.6-1.2) mg/dl Est Cr Clr Drug Dosing 21.3 ml/min Est GFR ( Amer) 35.7 ml/min Est GFR (Non-Af Amer) 30.8 ml/min BUN/Creatinine Ratio 34.6 H (10-20) Glucose 96 (70-99(Fasting)) mg/dl Lactate 1.1 (0.4-2.0) mmol/L Calcium 9.1 (8.6-10.3) mg/dl Total Bilirubin 0.9 (0.2-1.0) mg/dl AST TNP ALT 49 (7-52) U/L Alkaline Phosphatase 259 H (34-104) U/L Total Protein 7.6 (6.0-8.3) gm/dl Albumin 3.2 L (3.4-5.0) gm/dl Globulin 4.4 H (2.5-4.0) gm/dl Albumin/Globulin Ratio 0.7 L (0.9-2) Procalcitonin Cancelled Imaging Data Radiologist's Impression: Hand X-Ray 12/08/23 12:45 XR hand RT min 3V routine HISTORY: 83 years-old Female infected dog bite R hand acute right hand pain status post penetrating trauma COMPARISON: None TECHNIQUE: 3 views of the right and FINDINGS: Demineralized appearance of bones. Arterial calcifications. Severe osteoarthritis of the interphalangeal joints. Chronic periarticular erosions also noted within the DIP joints. No acute fracture, dislocation or opaque foreign body. Mild diffuse soft tissue swelling. IMPRESSION: 1. Soft tissue swelling without acute osseous abnormality. 2. 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 ACT 112: Negative or not required by law. The above report was generated using voice recognition software. It may contain grammatical, syntax or spelling errors. Electronically signed by: Paramjit Velazquez M.D. 12/08/2023 1:37 PM [facility] Narrative Patient was seen and evaluated as above in room D04b. Review was performed of triage nursing notes and vital signs. I did review patient's recent PCP visit. After obtaining a thorough history and physical examination the above work up was performed. Patient presents to us today for evaluation of an infected right hand status post dog bite that occurred yesterday. She is right-hand dominant. Options of care were discussed with the patient. X-ray was performed and per my interpretation reveals no fracture or radiopaque foreign body IV access was established. Labs were drawn. Tetanus vaccine updated, as well as initiation of IV antibiotics noting the infected dog bite. Labs show no leukocytosis. Minor anemia noted with hemoglobin at 11.8. Minor thrombocytopenia with platelets at 128. Mild hyponatremia 133.CKD creatinine 1.58 and BUN 54. Alk phos 259. Normal. Blood culture and wound culture pending. At this time I do believe that further evaluation and management in the inpatient setting is warranted. Verbal consent was obtained and I did cleanse the right hand wound with sterile saline and dilute iodine. Region was then dried with sterile gauze. Single-layer Adaptic dressing was applied to the wound followed by gauze to the right hand. Case discussed with the hospitalist service. Please refer to further documentation regarding her stay. In the evaluation and treatment of this patient the following differential diagnoses were entertained: Cellulitis, abscess, fracture, retained foreign body, among others. Impression & Plan Cellulitis of right hand, Dog bite of right hand with infection Discharge Plan Visit Data Chief Complaint: Animal Bite Stated Complaint: DOG BITE, RT HAND ED Provider: Verónica Jacinto ED Midlevel Provider: Sj Castro Discharge Problem: Cellulitis of right hand, Dog bite of right hand with infection Patient Disposition: Admitted As Inpatient Condition: Good Forms Stand Alone Forms: My [facility], Important Visit Information Prescriptions Prescriptions: No Action spironolactone 25 mg tablet 25 mg PO DAILY Qty: 90 3RF nadolol 20 mg tablet 20 mg PO DAILY Qty: 90 3RF levothyroxine 75 mcg tablet 75 mcg PO DAILY Qty: 90 3RF gabapentin 100 mg capsule 200 mg PO HS Qty: 180 3RF furosemide 20 mg tablet 20 mg PO QAM Qty: 90 2RF Saccharomyces boulardii [Daily Probiotic (S. boulardii)] PO calcium citrate-vitamin D3 [Citracal + D Maximum] 315 mg-6.25 mcg (250 unit) tablet 1 tab PO BID multivitamin with iron [Daily Vitamin with Iron] PO DAILY vitamin A-vit C-vit E-zinc-Cu [Vision-Phillip Preserve] PO DAILY ascorbic acid (vitamin C) 500 mg capsule PO Xiidra 5 % dropperette 1 drp ophthalmic (eye) BID Rx Instructions: administer approximately 12 hours apart famotidine 40 mg tablet 40 mg PO BID aspirin 81 mg tablet,delayed release (DR/EC) 81 mg PO DAILY cholecalciferol (vitamin D3) [Vitamin D3] 50 mcg (2,000 unit) capsule 50 mcg PO QAM ferrous sulfate [iron] 325 mg (65 mg iron) tablet 325 mg PO QAM Azo Cranberry 250 mg tablet,chewable 250 mg PO BID Referrals Referrals: Mak Tolbert CRNP [Primary Care Provider] -
[2023-12-08 13:20] LABS: Basophils # (auto) 0.04 K/uL (0.00-0.20); Basophils % (auto) 0.6 %; Eosinophils # (auto) 0.07 K/uL (0.00-0.50); Eosinophils % (auto) 1.1 %; Hematocrit (blood only) 34.7 % (37.0-47.0); Hemoglobin 11.8 g/dl (12.0-16.0); Immature Granulocytes # (auto) 0.02 K/uL (0.01-0.20); Immature Granulocytes % (auto) 0.3 %; Lymphocytes % (auto) 19.4 %; Mean Corpuscular Hemoglobin 34.1 pg (25.0-34.0); Mean Corpuscular Volume 100.3 fL (80.0-100.0); Mean Platelet Volume 10.7 fL (9.4-12.4); Monocytes # (auto) 1.61 K/uL (0.11-0.59); Monocytes % (auto) 26.1 %; Neutrophils # (auto) 3.23 K/uL (1.40-6.50); Neutrophils % (auto) 52.5 %; Platelet Count 128 K/uL (130-400); RDW Coefficient of Variation 13.9 % (11.5-14.5); RDW Standard Deviation 50.8 fL (36.4-46.3); Red Blood Count 3.46 M/uL (4.20-5.40); White Blood Count 6.17 K/ul (4.8-10.8)
[2023-12-08] MEDS: AMPICILLIN/SULBACTAM SOD 3,000 MG in SODIUM CHLOR 0.9% MINI-B 100 ML IV STA (13:26)
[2023-12-08] MEDS: DIPHTHER/TETAN/PERTUS Vaccine (Tdap, Adol/Adult) 0.5mL IM ONE (13:26)
[2023-12-08 13:40] LABS: Alanine Aminotransferase 49 U/L (7-52); Albumin Globulin Ratio 0.7 (0.9-2); Albumin Level 3.2 gm/dl (3.4-5.0); Alkaline Phosphatase 259 U/L (34-104); Anion Gap 5 (3-11); BUN Creatinine Ratio 34.6 (10-20); Bilirubin,Total 0.9 mg/dl (0.2-1.0); Blood Urea Nitrogen 54 mg/dl (6-23); Calcium 9.1 mg/dl (8.6-10.3); Carbon Dioxide 23 mmol/L (21-32); Chloride 105 mmol/L (98-107); Creatinine Clr Calc Pharmacy 21.3 ml/min; Est GFR (African American) 35.7 ml/min; Est GFR (Non-African American) 30.8 ml/min; Globulin 4.4 gm/dl (2.5-4.0); Glucose 96 mg/dl (70-99(Fasting)); Sodium 133 mmol/L (136-145); Total Protein 7.6 gm/dl (6.0-8.3)
--- NOTE | 2023-12-08 13:40 | XRay Report ---
XR hand RT min 3V routine HISTORY: 83 years-old Female infected dog bite R hand acute right hand pain status post penetrating trauma COMPARISON: None TECHNIQUE: 3 views of the right and FINDINGS: Demineralized appearance of bones. Arterial calcifications. Severe osteoarthritis of the interphalang eal joints. Chronic periarticular erosions also noted within the DIP joints. No acute fracture, dislo cation or opaque foreign body. Mild diffuse soft tissue swelling. IMPRESSION: 1. Soft tissue swelling without acute osseous abnormality. 2. 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 ACT 112: Negative or not required by law. The above report was generated using voice recognition software. It may contain grammatical, syntax o r spelling errors. Electronically signed by: Paramjit Velazquez M.D. 12/08/2023 1:37 PM
--- NOTE | 2023-12-08 13:47 | History & Physical Report ---
Date of Service December 08, 2023 Assessment & Plan (1) Cellulitis of right hand: Plan: -Admit to med/sure -Stable and non-toxic appearing -Was bit on the right hand by her Daughter's dog on 12/06 -Noted to have swelling and erythema of the dorsum of the right hand consistent with cellulitis -Purulent drainage noted from the puncture site -Xray of the right hand is negative for signs of abscess or bone involvement -S/P one dose of Unasyn in the ED, will continue with Unasyn for now -Nurse will outline border of cellulitis now, monitor for improvement -Pain control with tylenol for now -Follow blood and wound cultures -BL CHRISTELLE's for DVT PPX -HH diet with 1800 mL fluid restriction -AM CBC, CMP, mag, PT/INR (2) Hypothyroidism: Plan: -Continue levothyroxine (3) Cirrhosis: Plan: -No signs of decompensated cirrhosis -LFT's are WNL -Sodium of 133 but electrolytes are otherwise stable -Continue lasix, spironolactone, and nadolol -Monitor am CMP (4) GERD (gastroesophageal reflux disease): Plan: -Conitnue PPI Plan The patient was discussed with Dr. Olivarez at the time of the admission History of Present Illness Chief Complaint: Right hand cellulitis S/P dog bite Primary Care Provider: NICOLÁS Gibson Cristina is a 83 year old female with a PMH significant for VILLAGOMEZ Cirrhosis with portal hypertension, hypothyroidism, GERD, and anemia who presented to the [facility] ED on 12/08/23 due to progressive erythema, swelling, and pain of the right hand after being bit by a family dog on 12/07/23. She remained stable in the ED. Labs were significant for a platelet count of 128, WBC WNL, sodium of 133, and lactate WNL. Xray of the right hand was read as "1. Soft tissue swelling without acute osseous abnormality. 2. 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 The ED reports that the dog which bit her was not up to date on all vaccinations but is up to date on rabies vaccinations. Prior to admission the patient was given a dose of Unasyn and Diptheria/pertussis/Tetanus booster. At the time of the exam the patient was sitting in bed in no acute distress with her daughter/POA bedside, history was obtained from both. The patient had been in her normal state of health when she was accidentally bitten by her Daughter's dog yesterday. Her daughter explains that the dog had been updated on all vaccinations until last year when she had a long hospitalization of her own. The dog has not had a rabies booster in the past year but is an indoor animal, has been healthy, and has been acting itself. They do not wish for the patient to have rabies prophylaxis at this time. She denies fever, chills, chest pain, SOB, abd pain,nausea, vomiting, diarrhea, dysuria hematuria, melena, LE swelling. The hand is not painful at rest but she does have pain when trying to make a fist. She is a full code and her daughter is her POA. Please refer to Dr. Olivarez's attestation for any changes to the treatment plan Allergies Allergy/AdvReac Type Severity Reaction Status Date / Time Sulfa (Sulfonamide Allergy Mild Rash Verified 12/06/23 10:23 Antibiotics) Home Medications Medication Instructions Recorded Confirmed Type cholecalciferol (vitamin D3) 50 50 mcg PO QAM 01/03/22 12/06/23 History mcg (2,000 unit) capsule (Vitamin D3) cranberry fruit concentrate 250 mg 250 mg PO BID 01/03/22 12/06/23 History chewable tablet (Azo Cranberry) ferrous sulfate 325 mg (65 mg 325 mg PO QAM 01/03/22 12/06/23 History iron) tablet (iron) ascorbic acid (vitamin C) 500 mg mg PO 02/24/23 12/06/23 History capsule calcium citrate 315 mg 1 tab PO BID 02/24/23 12/06/23 History calcium-vitamin D3 6.25 mcg (250 unit) tablet (Citracal + Vitamin D Maximum) famotidine 40 mg tablet 40 mg PO BID 02/24/23 12/06/23 History lifitegrast 5 % eye drops in a 1 drp ophthalmic (eye) BID 02/24/23 12/06/23 History dropperette (Xiidra) multivitamin with iron [Daily PO DAILY 02/24/23 12/06/23 History Vitamin with Iron] vitamin A-vit C-vit E-zinc-Cu PO DAILY 02/24/23 12/06/23 History [Vision-Phillip Preserve] nadolol 20 mg tablet 20 mg PO DAILY #90 tabs 05/24/23 12/06/23 Rx spironolactone 25 mg tablet 25 mg PO DAILY #90 tabs 05/24/23 12/06/23 Rx aspirin 81 mg tablet,delayed 81 mg PO DAILY 09/01/23 12/06/23 History release levothyroxine 75 mcg tablet 75 mcg PO DAILY #90 tabs 10/03/23 12/06/23 Rx gabapentin 100 mg capsule 200 mg (2 x 100 mg) PO HS #180 caps 11/03/23 12/06/23 Rx Saccharomyces boulardii [Daily PO 12/06/23 12/06/23 History Probiotic (S. boulardii)] furosemide 20 mg tablet 20 mg PO QAM #90 tabs 12/07/23 Rx Past Med/Surg History Problem List (Updated 12/08/23 @ 14:09 by Oneil Thorne PA-C) Cellulitis of right hand Mild cognitive impairment GERD (gastroesophageal reflux disease) Hypothyroidism Vitamin D deficiency Anemia Macular degeneration Cirrhosis VILLAGOMEZ Portal hypertension (Acute) Incarcerated hernia (Acute) Normocytic anemia Disorder of kidney Stone in renal pelvis Umbilical hernia Medical History Mild cognitive impairment Hearing deficit Hx of intestinal obstruction CKD (chronic kidney disease) History of kidney injury Hypertension History of COVID-19 Hypothyroidism Right ureteral calculus Mitral valve prolapse Esophageal varices 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 Anemia Umbilical hernia Surgical History S/P hysterectomy S/P cystoscopy with ureteral stent placement History of esophagogastroduodenoscopy (EGD) Hx of colonoscopy Hx of lithotripsy History of foot surgery Hx of carpal tunnel repair History of partial hysterectomy Hx of tubal ligation Family History Sister Colorectal cancer Mother Myocardial infarction Father Myocardial infarction Brother Myocardial infarction Other Family history non-contributory No family history of adverse response to anesthesia Denies family history of Ovarian cancer Prostate cancer Breast cancer Social History Smoking Status: Never smoker Second Hand Exposure: No; Do You Dip or Chew Tobacco: No; Hx Alcohol Use: No Hx Substance Use: No Preferred Language: Serbian Communication Ability: Effective Visual Impairment: Partially Limited Hearing Ability: Use of Hearing Aid Chemical Packager Required: No Beliefs That Will Affect Care: None marital status: / Current Living Situation: Family Current Living Situation Comment: daughter, grandaughter/, 2 great-grandchildren 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 How many Children do You have: 2 Feels Safe at Home: Yes Diet: ideal protein Diet Comment: boost q morning w/ yougurt- attempts high protein caffeine: Yes (soda) during the past year weight has: remained stable Dental Care, Regularly: Yes Physical Activity Frequency: Daily Physical Activity Frequency Comment: helps w/ great grandchilden Seatbelt Use: always Assistive Devices: Hearing Aid - Bilateral Physical Exam Physical Exam: Physical Exam: General: In no acute distress, stated age, well-nourished, good hygiene HEENT: Normocephalic, atraumatic, no scleral icterus, pupils around round, symmetrical, and reactive to light, moist mucus membranes, trachea midline, no thyromegaly Chest/Pulm: No respiratory distress, symmetrical chest expansion, clear breath sounds throughout Cardiac: RRR, no murmurs noted Abdomen: Negative for ascites and bruising, normoactive bowel sounds, soft, non-tender to palpation throughout Musculoskeletal: Patient able to close right hand with moderate dorsal pain but denies pain on the palm of the hand, no other acute trauma noted. Extremities: Radial, dorsalis pedis, and posterior tibial pulses are intact and symmetrical, no edema noted in the BL LE's Skin: Puncture wound noted on the dorsum of the right hand with noted purulent drainage, erythema and swelling of the dorsum of the right hand without signs of tracking into the right wrist or forearm >See picture in ED note for further details Neuro: Alert and oriented to person, place, month, year, and president, no focal defects, no tremors noted Psych: No acute distress, calm and cooperative during the exam Results & Data Results & Data Vital Signs (Past 12 Hours) Vital Signs Temp Pulse Resp BP Pulse Ox O2 Del Method 12/08/23 12:28 36.8 C 62 18 120/65 97 Room Air Laboratory Results Abnormal lab results 12/08/23 Range/Units 13:04 RBC 3.46 L (4.20-5.40) M/uL Hgb 11.8 L (12.0-16.0) g/dl Hct 34.7 L (37.0-47.0) % MCV 100.3 H (80.0-100.0) fL MCH 34.1 H (25.0-34.0) pg RDW Std Deviation 50.8 H (36.4-46.3) fL Plt Count 128 L (130-400) K/uL [place] # (Auto) 1.61 H (0.11-0.59) K/uL Sodium 133 L (136-145) mmol/L BUN 54 H (6-23) mg/dl Creatinine 1.56 H (0.6-1.2) mg/dl BUN/Creatinine Ratio 34.6 H (10-20) Alkaline Phosphatase 259 H (34-104) U/L Albumin 3.2 L (3.4-5.0) gm/dl Globulin 4.4 H (2.5-4.0) gm/dl Albumin/Globulin Ratio 0.7 L (0.9-2) Diagnostic Findings Hand X-Ray 12/08/23 12:45 XR hand RT min 3V routine HISTORY: 83 years-old Female infected dog bite R hand acute right hand pain status post penetrating trauma COMPARISON: None TECHNIQUE: 3 views of the right and FINDINGS: Demineralized appearance of bones. Arterial calcifications. Severe osteoarthritis of the interphalangeal joints. Chronic periarticular erosions also noted within the DIP joints. No acute fracture, dislocation or opaque foreign body. Mild diffuse soft tissue swelling. IMPRESSION: 1. Soft tissue swelling without acute osseous abnormality. 2. 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 ACT 112: Negative or not required by law. The above report was generated using voice recognition software. It may contain grammatical, syntax or spelling errors. Electronically signed by: Paramjit Velazquez M.D. 12/08/2023 1:37 PM Code Status & VTE Plan Code Status Full code VTE Prophylaxis Plan VTE Prophylaxis will be ordered: Yes PG Care Time/CCT Total # of Minutes Spent Total Time Spent with Patient: Total time spent is greater than 50% in coordination of care (as documented) at patient's floor/unit and/or counseling patient: Coding [place] [address] INT INP/OBS CARE 2/55MIN Patient Type Established History Comprehensive Exam Comprehensive Medical Decision Making Moderate Complexity Diagnoses Cellulitis of right hand L03.113 Hypothyroidism E03.9 Cirrhosis K74.60 GERD (gastroesophageal reflux disease) K21.9
--- NOTE | 2023-12-08 14:22 | Emergency Department Note ---
ED Visit Note I was consulted by the Advanced Practice Provider. I personally approved the management plan per the PA-C. This includes the aspects of: -History/Physical/Personally seeing the patient -MDM -I independently interpreted the following studies:Studies and results .
[2023-12-08] MEDS: ACETAMINOPHEN 325 MG TAB PO STA (14:24)
[2023-12-08] MEDS: LACTATED RINGER'S 500 ML IV ONE (18:22)
[2023-12-08] MEDS ORDERED: ARTIFICIAL TEARS OP PRN (20:00)
[2023-12-08] MEDS: GABAPENTIN 100 MG CAP PO SCH (20:35)
[2023-12-09] MEDS: AMPICILLIN/SULBACTAM SOD 3,000 MG in SODIUM CHLOR 0.9% MINI-B 100 ML IV SCH (01:15)
[2023-12-09] MEDS: LEVOTHYROXINE SODIUM 75 MCG TABLET PO SCH (05:47)
[2023-12-09 07:45] LABS: Hemoglobin 10.1 g/dl (12.0-16.0); Mean Corpuscular Hemoglobin 33.7 pg (25.0-34.0); Mean Corpuscular Hgb Conc 33.7 g/dL (32.0-36.0); Mean Platelet Volume 10.6 fL (9.4-12.4); Platelet Count 92 K/uL (130-400); RDW Coefficient of Variation 13.7 % (11.5-14.5); RDW Standard Deviation 49.8 fL (36.4-46.3); White Blood Count 3.49 K/ul (4.8-10.8)
[2023-12-09 07:52] LABS: Albumin Globulin Ratio 0.7 (0.9-2); Albumin Level 2.7 gm/dl (3.4-5.0); BUN Creatinine Ratio 37.7 (10-20); Bilirubin,Total 0.6 mg/dl (0.2-1.0); Calcium 8.4 mg/dl (8.6-10.3); Creatinine Clr Calc Pharmacy 27.3 ml/min; Est GFR (African American) 48.1 ml/min; Est GFR (Non-African American) 41.5 ml/min; Globulin 3.7 gm/dl (2.5-4.0); Potassium 3.7 mmol/L (3.5-5.1); Total Protein 6.4 gm/dl (6.0-8.3)
[2023-12-09 07:58] LABS: Basophils # (auto) 0.02 K/uL (0.00-0.20); Basophils % (auto) 0.6 %; Eosinophils # (auto) 0.08 K/uL (0.00-0.50); Eosinophils % (auto) 2.3 %; Immature Granulocytes # (auto) 0.01 K/uL (0.01-0.20); Immature Granulocytes % (auto) 0.3 %; Lymphocytes # (auto) 0.65 K/uL (1.20-3.40); Lymphocytes % (auto) 18.6 %; Monocytes # (auto) 0.95 K/uL (0.11-0.59); Monocytes % (auto) 27.2 %; Neutrophils # (auto) 1.78 K/uL (1.40-6.50)
[2023-12-09 08:01] LABS: INR 1.1 (0.9-1.1); Prothrombin Time 11.5 Seconds (9.0-12.0)
[2023-12-09] MEDS: SPIRONOLACTONE 25 MG TAB PO SCH (08:09)
[2023-12-09] MEDS: FUROSEMIDE 40 MG TAB PO SCH (08:09)
[2023-12-09] MEDS: FAMOTIDINE 40 MG TABLET PO SCH (08:09)
[2023-12-09] MEDS: ASPIRIN 81 MG ECTAB PO SCH (08:10)
[2023-12-09] MEDS: nadoloL 40 MG TAB PO SCH (08:10)
--- NOTE | 2023-12-09 13:40 | Hospitalist Progress Note ---
Date of Service December 09, 2023 Assessment & Plan (1) Cellulitis of right hand: Plan: Acute/stable - Xray of the right hand is negative bone involvement, soft tissue swelling noted - Remains on IV Unasyn 3g q12 - Improvement in area of erythema as it has receded from marked outline - Pain control with tylenol for now - Wound and Blood Cx pending - Obtain MRI w/o contrast to exclude tenosynovitis (2) Thrombocytopenia: Plan: Acute/unstable - Steady drop from 150 on 12/05 --> 128 --> 92 on 12/08 - Could be secondary to Unasyn - Continue for now, continue to monitor CBC daily - Hold ASA - Not on any heparin products (3) Hypothyroidism: Plan: Chronic/stable - Continue levothyroxine (4) Cirrhosis: Plan: Chronic/stable - No signs of decompensated cirrhosis - LFTs reviewed on CMP, mildly elevated (AST and Alk phos), ALT WNL - Continue lasix, spironolactone, and nadolol (5) GERD (gastroesophageal reflux disease): Plan: Chronic/stable - Continue PPI Plan Follow up CBC and BMP with magnesium level in AM. Continue current antibiotics, with plan to transition to Augmentin upon discharge. Obtain MRI w/o contrast today as outlined above. Plan of care to be d/w Dr. Johnson. Admission and Anticipated Discharge Date Admission Date: December 08, 2023 Sharron Evans was seen and examined on daily rounds today. She is resting comfortably in bed, offers no complaints. Pain in her right hand is controlled. She has had some drainage from the wound. No fever or chills. Redness and swelling has improved. Denies chest pain or dyspnea. No n/v/d, fever or chills. She is tolerating her antibiotics. Review of Systems 2 Review of Systems: All systems reviewed and are unremarkable except as noted in HPI and below. Denies fever, chills, fatigue, headache, nasal congestion, sore throat, cough, chest pain, shortness of breath, palpitations, orthopnea, PND, abdominal pain, n/v/d, constipation, dysuria, hematuria, frequency, back pain, joint pain or swelling, easy bruising or bleeding, skin lesions or rashes. Physical Exam 2 Physical Exam: GENERAL: 83 yo well-developed, well-nourished elderly F. No distress. LUNGS: Clear to auscultation bilaterally. No w/r/r CARDIOVASCULAR: Regular rate and rhythm. ABDOMEN: Soft, non-tender and non-distended. BS Bowel sounds normoactive x 4 quad. EXTREMITIES: Right hand with mild erythema on dorsal aspect with one puncture wound, some slough noted, scant drainage, nothing actively drainage or expressible. No active bleeding. NV intact. Results & Data Results & Data Vital Signs (Past 12 Hours) Vital Signs Temp Pulse Resp BP Pulse Ox O2 Del Method 12/09/23 08:01 36.6 C 66 16 111/55 L 97 Room Air 12/09/23 07:30 Room Air Laboratory Results 12/09/23 07:02 12/09/23 07:02 PG Care Time/CCT Total # of Minutes Spent Total Time Spent with Patient: Total time spent is greater than 50% in coordination of care (as documented) at patient's floor/unit and/or counseling patient: Coding Level of Care Code 37017 SUB INP/OBS CARE 2/35MIN Diagnoses Cellulitis of right hand L03.113 Thrombocytopenia D69.6 Acquired hypothyroidism E03.9 Hypothyroidism type: acquired Cirrhosis of liver without ascites, unspecified hepatic cirrhosis type K74.60 Hepatic cirrhosis type: unspecified hepatic cirrhosis Ascites presence: without ascites Gastroesophageal reflux disease without esophagitis K21.9 Esophagitis presence: without esophagitis (3) Hypothyroidism Hypothyroidism type: acquired Qualified Code(s): E03.9 - Hypothyroidism, unspecified (4) Cirrhosis Hepatic cirrhosis type: unspecified hepatic cirrhosis Ascites presence: w ithout ascites Qualified Code(s): K74.60 - Unspecified cirrhosis of liver (5) GERD (gastroesophageal reflux disease) Esophagitis presence: without esophagitis Qualified Code(s): K21.9 - Gastro- esophageal reflux disease without esophagitis
[2023-12-09] MEDS: ACETAMINOPHEN 325 MG TAB PO ONE (22:03)
--- NOTE | 2023-12-09 23:31 | Magnetic Resonance Report ---
Exam(s): MRI RIGHT HAND Without Contrast EXAM: MR Right Upper Extremity Without Intravenous Contrast, Hand CLINICAL HISTORY: Reason for exam: dog bite, r/o tenosynovitis. TECHNIQUE: Multiplanar magnetic resonance images of the right hand without intravenous contrast. COMPARISON: X-ray 12/08/2023 FINDINGS: The images are degraded by motion artifact. There is a dorsal subcutaneous soft tissue edema consistent with cellulitis. No fluid collection. No tenosynovitis. Marrow signal is normal. No osteomyelitis or septic arthritis. IMPRESSION: Dorsal cellulitis without evidence of tenosynovitis. Electronically signed by: Deny Panda MD 12/09/23 23:30 PM
[2023-12-10 06:46] LABS: Albumin Globulin Ratio 0.7 (0.9-2); Albumin Level 2.7 gm/dl (3.4-5.0); BUN Creatinine Ratio 29.9 (10-20); Bilirubin,Total 0.4 mg/dl (0.2-1.0); Calcium 8.2 mg/dl (8.6-10.3); Creatinine Clr Calc Pharmacy 19.9 ml/min; Est GFR (African American) 32.9 ml/min; Est GFR (Non-African American) 28.4 ml/min; Globulin 3.7 gm/dl (2.5-4.0); Potassium 3.9 mmol/L (3.5-5.1); Total Protein 6.4 gm/dl (6.0-8.3)
[2023-12-10 06:55] LABS: Basophils # (auto) 0.02 K/uL (0.00-0.20); Basophils % (auto) 0.6 %; Eosinophils # (auto) 0.11 K/uL (0.00-0.50); Eosinophils % (auto) 3.4 %; Hematocrit (blood only) 28.9 % (37.0-47.0); Hemoglobin 9.8 g/dl (12.0-16.0); Lymphocytes # (auto) 0.87 K/uL (1.20-3.40); Lymphocytes % (auto) 27.1 %; Mean Corpuscular Hemoglobin 33.6 pg (25.0-34.0); Mean Corpuscular Hgb Conc 33.9 g/dL (32.0-36.0); Mean Platelet Volume 10.9 fL (9.4-12.4); Monocytes # (auto) 0.91 K/uL (0.11-0.59); Monocytes % (auto) 28.3 %; Neutrophils % (auto) 40.6 %; Platelet Count 95 K/uL (130-400); RDW Coefficient of Variation 13.5 % (11.5-14.5); Red Blood Count 2.92 M/uL (4.20-5.40); White Blood Count 3.21 K/ul (4.8-10.8)
[2023-12-10 07:14] LABS: INR 1.1 (0.9-1.1); Prothrombin Time 11.7 Seconds (9.0-12.0)
--- NOTE | 2023-12-10 15:20 | Discharge Summary ---
Date of Service December 10, 2023 Admission HPI Per Admitting Provider Cristina is a 83 year old female with a PMH significant for VILLAGOMEZ Cirrhosis with portal hypertension, hypothyroidism, GERD, and anemia who presented to the [facility] ED on 12/08/23 due to progressive erythema, swelling, and pain of the right hand after being bit by a family dog on 12/07/23. She remained stable in the ED. Labs were significant for a platelet count of 128, WBC WNL, sodium of 133, and lactate WNL. Xray of the right hand was read as "1. Soft tissue swelling without acute osseous abnormality. 2. 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 The ED reports that the dog which bit her was not up to date on all vaccinations but is up to date on rabies vaccinations. Prior to admission the patient was given a dose of Unasyn and Diptheria/pertussis/Tetanus booster. At the time of the exam the patient was sitting in bed in no acute distress with her daughter/POA bedside, history was obtained from both. The patient had been in her normal state of health when she was accidentally bitten by her Daughter's dog yesterday. Her daughter explains that the dog had been updated on all vaccinations until last year when she had a long hospitalization of her own. The dog has not had a rabies booster in the past year but is an indoor animal, has been healthy, and has been acting itself. They do not wish for the patient to have rabies prophylaxis at this time. She denies fever, chills, chest pain, SOB, abd pain,nausea, vomiting, diarrhea, dysuria hematuria, melena, LE swelling. The hand is not painful at rest but she does have pain when trying to make a fist. She is a full code and her daughter is her POA. Principal Diagnosis Acute cellulitis right hand secondary to dog bite thrombocytopenia - suspect antibiotic induced Discharge Exam GENERAL: 83 yo well-developed, well-nourished elderly F. No distress. LUNGS: Clear to auscultation bilaterally. No w/r/r CARDIOVASCULAR: Regular rate and rhythm. ABDOMEN: Soft, non-tender and non-distended. BS Bowel sounds normoactive x 4 quad. EXTREMITIES: Right hand with mild erythema on dorsal aspect with one puncture wound, some slough noted, scant drainage, nothing actively drainage or expressible. No active bleeding. NV intact. Discharge Data Allergies Allergy/AdvReac Type Severity Reaction Status Date / Time Sulfa (Sulfonamide Allergy Mild Rash Verified 12/12/23 10:36 Antibiotics) Consultations 12/08/23 13:39 ED Decision to Admit Stat Ordered Studies Hand X-Ray 12/08/23 12:45 XR hand RT min 3V routine HISTORY: 83 years-old Female infected dog bite R hand acute right hand pain status post penetrating trauma COMPARISON: None TECHNIQUE: 3 views of the right and FINDINGS: Demineralized appearance of bones. Arterial calcifications. Severe osteoarthritis of the interphalangeal joints. Chronic periarticular erosions also noted within the DIP joints. No acute fracture, dislocation or opaque foreign body. Mild diffuse soft tissue swelling. IMPRESSION: 1. Soft tissue swelling without acute osseous abnormality. 2. 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 ACT 112: Negative or not required by law. The above report was generated using voice recognition software. It may contain grammatical, syntax or spelling errors. Electronically signed by: Paramjit Velazquez M.D. 12/08/2023 1:37 PM Hand MRI 12/09/23 11:38 Exam(s): MRI RIGHT HAND Without Contrast EXAM: MR Right Upper Extremity Without Intravenous Contrast, Hand CLINICAL HISTORY: Reason for exam: dog bite, r/o tenosynovitis. TECHNIQUE: Multiplanar magnetic resonance images of the right hand without intravenous contrast. COMPARISON: X-ray 12/08/2023 FINDINGS: The images are degraded by motion artifact. There is a dorsal subcutaneous soft tissue edema consistent with cellulitis. No fluid collection. No tenosynovitis. Marrow signal is normal. No osteomyelitis or septic arthritis. IMPRESSION: Dorsal cellulitis without evidence of tenosynovitis. Electronically signed by: Deny Panda MD 12/09/23 23:30 PM Hospital Course (1) Cellulitis of right hand: Acute/stable - Xray of the right hand is negative bone involvement, soft tissue swelling noted - Treated withIV Unasyn 3g q12 - Improvement in area of erythema as it has receded from marked outline - Pain control with tylenol - Wound cx preliminary result with GNB - final pending - MRI w/o contrast to exclude tenosynovitis performed 12/08 which was negative - Blood cultures NGTD - Transition to course of Augmentin 875-125mg BID x 8 days to complete at home - Daily wound care, f/u with PCP (2) Thrombocytopenia: Acute/unstable - Steady drop from 150 on 12/05 --> 128 --> 92 on 12/08 - Could be secondary to Unasyn - Continue for now, continue to monitor CBC daily - Hold ASA x 1 week - Follow up CBC in 1 week with results to PCP (3) Hypothyroidism: Chronic/stable - Continue levothyroxine (4) Cirrhosis: Chronic/stable - No signs of decompensated cirrhosis - LFTs reviewed on CMP, mildly elevated (AST and Alk phos), ALT WNL - Continue lasix, spironolactone, and nadolol (5) GERD (gastroesophageal reflux disease): Chronic/stable - Continue PPI Plan Patient is medically and hemodynamically stable for discharge home today with transition to course of Augmentin to complete at home. Follow up CBC in 1 week. F/u with pcp in 1 week or sooner. Plan of care to be d/w Dr. Johnson who is in agreement. Total Time Total Time Spent Total Time Spent (In Minutes): 35 Discharge Plan Discharge Items Patient Disposition: Home - Self-Care Reason For Visit: RIGHT HAND CELLULITIS Discharge Diagnosis: Right hand cellulitis Condition on Discharge: Good Activity: Resume your previous activity Non-emergency contact: Primary Care Provider Call non-emergency contact if: you have any medication questions, your symptoms worsen, your pain is not controlled and your temperature is above 101 Follow-up/Referrals: Mak Tolbert CRNP [Primary Care Provider] - 12/12/23 10:20 am Diet: Regular Addtl Attending Provider Instructions: 1. Take all medications as directed. 2. You are being transition to oral antibiotics - Amoxicillin-Clav acid, take one tablet by mouth twice a day with food. First dose is due this evening 12/11/23 before bed. 3. Clean your wound daily with gentle soap and water, pat dry, cover with nonstick dressing. Monitor for worsening signs of infection including redness, swelling, drainage or fever. 4. Follow up with your family doctor within 1 week of discharge. 5. Hold your daily Aspirin for one week. 6. You will need to have labwork done (a CBC) on December 15. Results will be forwarded to your family doctor for review. 7. In the event of a medical emergency, call 911 or go to the ER. Pending Studies at Discharge: No Stand-Alone Forms: [facility], Smoking Cessation Medications and DC Order Prescriptions: New amoxicillin-pot clavulanate 875-125 mg tablet 1 tab PO BID Qty: 16 0RF Continued gabapentin 100 mg capsule 200 mg PO HS Qty: 180 3RF calcium citrate-vitamin D3 [Citracal + D Maximum] 315 mg-6.25 mcg (250 unit) tablet 1 tab PO BID ascorbic acid (vitamin C) 500 mg capsule 500 mg PO QAM Xiidra 5 % dropperette 1 drp ophthalmic (eye) BID Rx Instructions: administer approximately 12 hours apart famotidine 40 mg tablet 40 mg PO QAM cholecalciferol (vitamin D3) [Vitamin D3] 50 mcg (2,000 unit) capsule 50 mcg PO QAM ferrous sulfate [iron] 325 mg (65 mg iron) tablet 325 mg PO QAM Azo Cranberry 250 mg tablet,chewable 250 mg PO BID furosemide 40 mg tablet 40 mg PO QAM spironolactone 25 mg tablet 25 mg PO QAM levothyroxine 75 mcg tablet 75 mcg PO DAILYBB nadolol 20 mg tablet 20 mg PO QAM vitamin A-vitamin C-vit E-min Tablet 1 tab PO QAM multivitamin with iron Tablet 1 tab PO DAILY Saccharomyces boulardii 10 billion cell Capsule 10 cell PO QAM Held aspirin 81 mg tablet,delayed release (DR/EC) 81 mg PO DAILY Hold Instructions: Resume on 12/18/23. Discharge Orders: Discharge Order (Routine); Ordered 12/10/23 Ordered By: Payton De La Rosa/Other Patient Handouts: Animal Bites and Scratches Admission Data Admit Date/Time: 12/08/23 14:00 Attending Provider: Jemal Johnson Admit Provider: Joey Olivarez Primary Care Provider: Mak Tolbert Other Providers: Joey Olivarez Other Interventions: Discharge Summary Assessment (RN) Last Done: 12/10/23 15:21 Supervising Physician Co-Signing Physician Notes During face to face encounter, I obtained a brief physical examination, discussed hospital stay with patient and discharge instructions with patient. I discussed discharge plan of care with MARIA DEL CARMEN Carr. I reviewed above note and agree with it except for the following: Patient will continue antibiotics for cellulitis of hand. Coding Level of Care Code 85533 INP/OBS DISCH >30 MIN Diagnoses Cellulitis of right hand L03.113 Thrombocytopenia D69.6 Acquired hypothyroidism E03.9 Hypothyroidism type: acquired Cirrhosis of liver without ascites, unspecified hepatic cirrhosis type K74.60 Ascites presence: without ascites Hepatic cirrhosis type: unspecified hepatic cirrhosis Gastroesophageal reflux disease without esophagitis K21.9 Esophagitis presence: without esophagitis
== END 2023-12-10 16:23 | disposition home or self-care (01) ==
LOC: 3N 12:25 → ED 12:25 → SUATTDRO 14:00 → 3N 19:36

== ENCOUNTER 2024-02-28 14:09 | Observation (INO) ==
[2024-02-28] MEDS: OPTIRAY 320 125ml IV ONE (14:24)
--- NOTE | 2024-02-28 14:27 | CT Scan Report ---
CT SCAN OF THE BRAIN WITHOUT IV CONTRAST CLINICAL HISTORY: Neurological deficit. Stroke like symptoms. COMPARISON STUDY: No priors. TECHNIQUE: Unenhanced axial CT scan of the brain is performed from the vertex to the skull base. A do se lowering technique was utilized adhering to the principles of ALARA. CT DOSE: 680.54 mGy.cm FINDINGS: Brain parenchyma: There is age-related involutional change noting moderate subcortical and periventri cular microangiopathic disease. There is no hemorrhage, mass effect, or evidence of acute territorial ischemia by CT criteria. Lane-white matter differentiation is preserved. No extra-axial fluid collec tion is seen. Ventricles, sulci, cisterns: Prominent secondary to involutional change. Intracranial vasculature: There is atherosclerotic calcification of the cavernous carotid and vertebr al arteries. Calvarium: Unremarkable. Sinuses and mastoids: Secretions are noted in the left maxillary antrum. The remaining visualized par anasal sinuses are clear. The mastoid air cells are well pneumatized. Orbits: The bony orbits are grossly intact. There are bilateral ocular lens implants. IMPRESSION: There is no hemorrhage, mass effect, or evidence of acute territorial ischemia by CT [place]ola. ACT 112: Negative or not required by law. Electronically signed by: Carmelo Espana M.D. 02/28/2024 2:26 PM
--- NOTE | 2024-02-28 14:40 | CT Scan Report ---
CT ANGIOGRAM OF THE NECK CLINICAL HISTORY: Neurological deficit. Stroke like symptoms. Vertigo. COMPARISON STUDY: No priors. TECHNIQUE: Following the IV administration of 118 of Optiray 320, CT angiogram of the neck was perfor med from the aortic arch to the skull base. Images are reviewed in the axial, sagittal, and coronal p lanes. 3-D MIPS images are created and assessed. IV contrast was administered without complication. A ll measurements were calculated based on NASCET criteria. A dose lowering technique was utilized adh ering to the principles of ALARA. FINDINGS: Thoracic aorta: There is atherosclerotic calcification of the visualized thoracic aorta. Imaged porti ons of the thoracic aorta are normal in caliber. The aortic arch demonstrates standard 3-vessel anato my. Right carotid arterial system: The right common carotid artery is widely patent, as are the right int ernal and external carotid arteries. Mild calcified plaque is seen in the carotid bulb. Left carotid arterial system: The left common carotid artery is widely patent, as are the left internal security manager al and external carotid arteries. Calcified plaque is seen in the carotid bulb. Vertebral arteries: The left vertebral artery is dominant and widely patent. The right vertebral gold ry is diminutive but patent. Subclavian arteries: Widely patent bilaterally. Intracranial vasculature: The visualized intracranial vessels at the skull base are patent. Jugular veins: Patent bilaterally. Brain parenchyma: The visualized brain parenchyma the skull base is within normal limits. Lung apices: Partially visualized upper lobe lung parenchyma appears clear. Soft tissues: The visualized pharyngeal soft tissues are normal in appearance noting angiographic pha se technique. The oropharyngeal airway appears widely patent. The right thyroid lobe is surgically ab sent. The left thyroid lobe is atrophic and heterogeneous. The salivary glands are atrophic. No cervi charito lymphadenopathy is seen. Skeletal structures: The skeletal structures are osteopenic. The visualized calvarium at the skull ba se appears intact. The imaged cervical spine is maintained noting multilevel spondylosis. Sinuses and mastoids: Secretions are noted in the left maxillary antrum. The remaining Visualized par anasal sinuses are clear. The mastoid air cells are well pneumatized. IMPRESSION: Unremarkable CT angiogram of the neck. ACT 112: Negative or not required by law. Electronically signed by: Carmelo Espana M.D. 02/28/2024 2:39 PM
--- NOTE | 2024-02-28 14:45 | Emergency Department Note ---
Impression & Plan Slurred speech, Anemia, Thrombocytopenia, Weakness, Acute UTI, CRF (chronic renal failure) ED Provider Note NAME: ADRIAN HUGHES AGE: 84 SEX: F : 1940 ARRIVES VIA: Walk-In INFORMANT: [Patient][family] ED PROVIDER(S): [Carmelo Romero MD] Patient first seen by me at 1416. CHIEF COMPLAINT: Possible stroke HISTORY OF PRESENT ILLNESS: The patient is an 84-year-old female who takes daily aspirin. She is not on blood thinning agents otherwise. The patient was felt to be in her normal state of health at around 920 this morning, 5 hours ago. She went for a chemical stress test and some outpatient laboratory work. When she was seen by her family at around 1230, 2 hours ago, after the stress test, she was not herself. She seemed more altered than her baseline, she had a hard time speaking and performing tasks. The family felt she was slurring her speech and that there was a right facial droop. She was referred to the ER. In triage, a stroke alert was called. PMHx/PSHx/Social Hx: See Below PHYSICAL EXAM: GENERAL: Patient is in no acute distress. HEENT: No acute trauma, normocephalic atraumatic, mucous membranes moist, no nasal congestion. NECK: No stridor, no adenopathy, no meningismus, trachea is midline. LUNGS: Clear to auscultation bilaterally, no wheeze, no rhonchi, breath sounds equal. HEART: Without murmurs gallops or rubs, regular rate and rhythm. ABDOMEN: Soft, nontender, no peritonitis. EXTREMITIES: No cyanosis, full range of motion of all the joints without pain or difficulty. NEUROLOGIC: Awake and alert, no facial droop or speech slur. No obvious extremity drift or cerebellar dysfunction. SKIN: No jaundice, no diaphoresis. DIFFERENTIAL DIAGNOSIS: Stroke or TIA, dehydration, liver failure, electrolyte imbalance, anemia, UTI, among others. EMERGENCY DEPARTMENT PROCEDURES: MEDICAL DECISION MAKING: There is a lower white blood cell count, consistent with her past history. The patient is anemic with a lower platelet count. Both the anemia and thrombocytopenia have been documented before. No coagulopathy. Sodium somewhat low at 132. Creatinine was elevated, consistent with her chronic renal failure. Patient did have some liver enzyme elevation consistent with her history of liver disease. Ammonia level was not elevated. Urinalysis is suggestive of infection, culture is pending. Chest x-ray did not show CHF or pneumonia. Brain CT showed no acute bleed or mass effect. CT angio of the head and neck did not show clot or significant stenosis. On exam, the patient had no obvious focal motor deficit. No speech slur per my evaluation. No facial droop. A stroke alert was called in triage. The patient was seen by the [place] stroke neurologist via telemedicine. The patient presents with strokelike symptoms. Workup here is unrevealing except for findings of UTI. At this point, the patient is not a TNK candidate. Her symptoms seem to have resolved. Admission to the hospital was recommended. She requires further stroke workup as well as treatment for her UTI. The patient was given IV saline, 500 cc. She was given 2 g of IV ceftriaxone as antibiotic coverage. I spoke with the patient and the family, I spoke with case management, the on- call hospitalist was consulted. Prior/Outside records/notes reviewed: None ECG per my interpretation: Indication was possible stroke. The ECG shows a normal sinus rhythm with a rate of 72. There is a potential old anterior infarct. There is no acute ST elevation, no PVCs. There is some baseline artifact. The QTc is 477. Continuous Cardiac Monitoring per my interpretation: An order was placed for continuous cardiac monitoring. The monitor shows a rate of 78 with normal sinus rhythm. Imaging/x-ray results per my interpretation: Chest x-ray shows some chronic change. A hiatal hernia was seen. There was no pneumonia or pneumothorax. No CHF. Chronic Medical/Social conditions affecting care: Advanced age, liver disease. Care/Management discussed with: Brenda neurology-Dr. Serna. Case management and the on-call hospitalist. Level of care consideration(s): After review of the information above and other included data: --I believe the patient requires escalation of care to admission Critical Care Note: I have personally spent 41 minutes of critical care time in the direct management of this patient. This includes bedside care, interpretation of diagnostic studies, and testing, discussion with consultants, patient, and family members, and other required patient management activities. This 41 minutes is in excess of all separately billable procedures. DISPOSITION: Admission Past Med/Surg History Problem List (Updated 02/28/24 @ 18:15 by Carmelo Romero MD) CRF (chronic renal failure) (Acute) Acute UTI (Acute) Weakness (Acute) Thrombocytopenia (Acute) Anemia (Acute) Slurred speech (Acute) UTI (urinary tract infection) Stroke-like symptoms Thrombocytopenia Dog bite of right hand with infection (Acute) Cellulitis of right hand (Acute) Mild cognitive impairment GERD (gastroesophageal reflux disease) Hypothyroidism Vitamin D deficiency Anemia Macular degeneration Cirrhosis VILLAGOMEZ Portal hypertension (Acute) Incarcerated hernia (Acute) Normocytic anemia Disorder of kidney Stone in renal pelvis Umbilical hernia Medical History Hearing deficit Hx of intestinal obstruction CKD (chronic kidney disease) History of kidney injury Hypertension History of COVID-19 08/2020 RESOVED Hypothyroidism Right ureteral calculus Mitral valve prolapse Dx 40+ years ago, "no issues" per pt ECHO 01/05/22- showed mild posterior MVP; mitral stenosis absent, mild MR (jet is posteriorly directed) Esophageal varices Per records, pt denies 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 Anemia Has been working with PCP and heme/onc per records- most recent Hgb improved to 11.7 Surgical History S/P hysterectomy S/P cystoscopy with ureteral stent placement History of esophagogastroduodenoscopy (EGD) Hx of colonoscopy Hx of lithotripsy History of foot surgery Hx of carpal tunnel repair History of partial hysterectomy Hx of tubal ligation Family History Sister Colorectal cancer Mother Myocardial infarction Father Myocardial infarction Brother Myocardial infarction Other Family history non-contributory No family history of adverse response to anesthesia Denies family history of Ovarian cancer Prostate cancer Breast cancer Social History Smoking Status: Never smoker Second Hand Exposure: No; Do You Dip or Chew Tobacco: No; Hx Alcohol Use: No Hx Substance Use: No Preferred Language: Bolivian Communication Ability: Effective Visual Impairment: Partially Limited Hearing Ability: Use of Hearing Aid Classification Control Clerk Required: No Beliefs That Will Affect Care: None marital status: / Current Living Situation: Family Current Living Situation Comment: lives with her daughter and grandaughter 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 occupational status: 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 How many Children do You have: 2 Feels Safe at Home: Yes Diet: ideal protein Diet Comment: boost q morning w/ yougurt- attempts high protein caffeine: Yes (soda) during the past year weight has: remained stable Dental Care, Regularly: Yes Physical Activity Frequency: Daily Physical Activity Frequency Comment: helps w/ great grandchilden Seatbelt Use: always Assistive Devices: Cane, Walker and Wheelchair Allergies Allergies Allergy/AdvReac Type Severity Reaction Status Date / Time Sulfa (Sulfonamide Allergy Mild Rash Verified 02/28/24 15:32 Antibiotics) Home Meds Home Medications Medication Instructions Recorded Confirmed cholecalciferol (vitamin D3) 50 50 mcg PO QAM 01/03/22 02/28/24 mcg (2,000 unit) capsule (Vitamin D3) cranberry fruit concentrate 250 mg 250 mg PO BID 01/03/22 02/28/24 chewable tablet (Azo Cranberry) ferrous sulfate 325 mg (65 mg 325 mg PO QAM 01/03/22 02/28/24 iron) tablet (iron) ascorbic acid (vitamin C) 500 mg 500 mg PO QAM 02/24/23 02/28/24 capsule calcium citrate 315 mg 1 tab PO BID 02/24/23 02/28/24 calcium-vitamin D3 6.25 mcg (250 unit) tablet (Citracal + Vitamin D Maximum) famotidine 40 mg tablet 40 mg PO QAM 02/24/23 02/28/24 lifitegrast 5 % eye drops in a 1 drp ophthalmic (eye) BID 02/24/23 02/28/24 dropperette (Xiidra) aspirin 81 mg tablet,delayed 81 mg PO DAILY 09/01/23 02/28/24 release Saccharomyces boulardii 10 billion 10 cell PO QAM 12/08/23 02/28/24 cell capsule furosemide 40 mg tablet 40 mg PO QAM 12/08/23 02/28/24 levothyroxine 75 mcg tablet 75 mcg PO DAILYBB 12/08/23 02/28/24 multivitamin with iron 1 tab PO DAILY 12/08/23 02/28/24 nadolol 20 mg tablet 20 mg PO QAM 12/08/23 02/28/24 spironolactone 25 mg tablet 25 mg PO QAM 12/08/23 02/28/24 vitamin A-vitamin C-vit E-min 1 tab PO QAM 12/08/23 02/28/24 tablet Previous Rx's Medication Instructions Recorded gabapentin 100 mg capsule 200 mg (2 x 100 mg) PO HS #180 caps 11/03/23 Results & Data (ED) Vital Signs Vital Signs - 24 hr 02/28/24 14:14 02/28/24 14:35 02/28/24 14:35 Temperature 36.8 C 36.9 C Temperature Source Temporal Artery Scan Oral Pulse Rate 78 Pulse Rate [Right Finger] 74 Pulse Rhythm Pulse Rhythm [Right Finger] Regular Pulse Strength [Right Finger] Normal Respiratory Rate 20 20 Respiratory Effort / Characteristics Non-Labored Spontaneous Non-Labored Spontaneous Respiratory Depth Normal Normal Respiratory Pattern Regular Blood Pressure 110/66 Blood Pressure [Right Arm] 116/74 Blood Pressure Mean 80 Blood Pressure Mean [Right Arm] 88 Blood Pressure Position [Right Arm] Semi-fowlers Pulse Oximetry 98 93 95 Oxygen Delivery Method Room Air Room Air Room Air Sepsis Recent Fever Within 48 Hours No Sepsis New/Unexplained Change in Mental Status No Sepsis Action Taken by Nursing No Action Required 02/28/24 14:35 02/28/24 14:42 Temperature Temperature Source Pulse Rate 73 Pulse Rate [Right Finger] Pulse Rhythm Regular Pulse Rhythm [Right Finger] Pulse Strength [Right Finger] Respiratory Rate 20 Respiratory Effort / Characteristics Respiratory Depth Respiratory Pattern Blood Pressure Blood Pressure [Right Arm] Blood Pressure Mean Blood Pressure Mean [Right Arm] Blood Pressure Position [Right Arm] Pulse Oximetry 96 96 Oxygen Delivery Method Room Air Room Air Sepsis Recent Fever Within 48 Hours Sepsis New/Unexplained Change in Mental Status Sepsis Action Taken by [facility]dc Medications Current Medication List: was personally reviewed by me Laboratory Data Attestation: I reviewed the patient's lab results. 02/28/24 14:46 02/28/24 14:46 Lab Results 02/28/24 02/28/24 02/28/24 Range/Units 14:43 14:46 14:51 WBC 4.69 L (4.8-10.8) K/ul RBC 2.99 L (4.20-5.40) M/uL Hgb 9.9 L (12.0-16.0) g/dl POC Hgb 9.5 L (12.0-16.0) g/dl Hct 29.8 L (37.0-47.0) % POC Hct 28 L (37-47) % MCV 99.7 (80.0-100.0) fL MCH 33.1 (25.0-34.0) pg MCHC 33.2 (32.0-36.0) g/dL RDW Std Deviation 52.8 H (36.4-46.3) fL RDW Coeff of Bob 14.5 (11.5-14.5) % Plt Count 92 L (130-400) K/uL MPV 10.4 (9.4-12.4) fL PT 11.9 (9.0-12.0) Seconds INR 1.1 (0.9-1.1) APTT 31 (21-31) Seconds PTT Ratio 1.2 POC Sodium 135 (135-144) mmol/L Sodium 132 L (136-145) mmol/L POC Potassium 4.0 (3.3-5.0) mmol/L Potassium 3.9 (3.5-5.1) mmol/L POC Chloride 103 (101-112) mmol/L Chloride 104 (98-107) mmol/L Carbon Dioxide 23 (21-32) mmol/L POC Total CO2 20 L (24-31) mmol/L Anion Gap 5 (3-11) POC Anion Gap 16.0 (16-25) mmol/L POC BUN 53 H (7-18) mg/dl BUN 59 H (6-23) mg/dl Creatinine 1.57 H (0.6-1.2) mg/dl POC Creatinine 1.8 H (0.6-1.3) mg/dl Est Cr Clr Drug Dosing 20.8 ml/min Est GFR ( Amer) 35.2 ml/min Est GFR (Non-Af Amer) 30.4 ml/min BUN/Creatinine Ratio 37.6 H (10-20) Glucose 144 H (70-99(Fasting)) mg/dl POC Glucose 166 H (70-99) mg/dl POC Glucose (other) 135 H (70-99) mg/dl Calcium 9.0 (8.6-10.3) mg/dl POC Ioniz Calcium [place] 1.15 (1.12-1.32) mmol/l Magnesium 2.3 (1.7-2.4) mg/dl Total Bilirubin 0.6 (0.2-1.0) mg/dl AST 50 H (13-39) U/L ALT 50 (7-52) U/L Alkaline Phosphatase 257 H (34-104) U/L Ammonia 49.0 (18-72) umol/L Total Protein 6.7 (6.0-8.3) gm/dl Albumin 2.9 L (3.4-5.0) gm/dl Globulin 3.8 (2.5-4.0) gm/dl Albumin/Globulin Ratio 0.8 L (0.9-2) Urine Color Urine Appearance (Clear) Urine pH (4.5-7.5) Ur Specific [place] (1.000-1.030) Urine Protein (Negative) Urine Glucose (UA) (Negative) Urine Ketones (Negative) Urine Blood (Negative) Urine Nitrite (Negative) Urine Bilirubin (Negative) Urine Urobilinogen (Negative) Ur Leukocyte Esterase (Negative) Urine WBC (Auto) (0-5) /hpf Urine RBC (Auto) (0-2) /hpf U Hyaline Cast (Auto) (0-2) /lpf U Epithel Cells (Auto) (0-2) /hpf Urine Bacteria (Auto) (None Seen) 02/28/24 Range/Units 15:17 WBC (4.8-10.8) K/ul RBC (4.20-5.40) M/uL Hgb (12.0-16.0) g/dl POC Hgb (12.0-16.0) g/dl Hct (37.0-47.0) % POC Hct (37-47) % MCV (80.0-100.0) fL MCH (25.0-34.0) pg MCHC (32.0-36.0) g/dL RDW Std Deviation (36.4-46.3) fL RDW Coeff of Bob (11.5-14.5) % Plt Count (130-400) K/uL MPV (9.4-12.4) fL PT (9.0-12.0) Seconds INR (0.9-1.1) APTT (21-31) Seconds PTT Ratio POC Sodium (135-144) mmol/L Sodium (136-145) mmol/L POC Potassium (3.3-5.0) mmol/L Potassium (3.5-5.1) mmol/L POC Chloride (101-112) mmol/L Chloride (98-107) mmol/L Carbon Dioxide (21-32) mmol/L POC Total CO2 (24-31) mmol/L Anion Gap (3-11) POC Anion Gap (16-25) mmol/L POC BUN (7-18) mg/dl BUN (6-23) mg/dl Creatinine (0.6-1.2) mg/dl POC Creatinine (0.6-1.3) mg/dl Est Cr Clr Drug Dosing ml/min Est GFR ( Amer) ml/min Est GFR (Non-Af Amer) ml/min BUN/Creatinine Ratio (10-20) Glucose (70-99(Fasting)) mg/dl POC Glucose (70-99) mg/dl POC Glucose (other) (70-99) mg/dl Calcium (8.6-10.3) mg/dl POC Ioniz Calcium [place] (1.12-1.32) mmol/l Magnesium (1.7-2.4) mg/dl Total Bilirubin (0.2-1.0) mg/dl AST (13-39) U/L ALT (7-52) U/L Alkaline Phosphatase (34-104) U/L Ammonia (18-72) umol/L Total Protein (6.0-8.3) gm/dl Albumin (3.4-5.0) gm/dl Globulin (2.5-4.0) gm/dl Albumin/Globulin Ratio (0.9-2) Urine Color Yellow Urine Appearance Clear (Clear) Urine pH 5.5 (4.5-7.5) Ur Specific [place] 1.018 (1.000-1.030) Urine Protein Negative (Negative) Urine Glucose (UA) Negative (Negative) Urine Ketones Negative (Negative) Urine Blood Negative (Negative) Urine Nitrite Positive A (Negative) Urine Bilirubin Negative (Negative) Urine Urobilinogen Negative (Negative) Ur Leukocyte Esterase 2+ H (Negative) Urine WBC (Auto) 0-5 (0-5) /hpf Urine RBC (Auto) 0-2 (0-2) /hpf U Hyaline Cast (Auto) 3-5 H (0-2) /lpf U Epithel Cells (Auto) 0-2 (0-2) /hpf Urine Bacteria (Auto) 4+ H (None Seen) Administered Medications Discontinued Medications Aspirin (Aspirin 81 Mg Ectab) 243 mg PO NOW STA Stop: 02/28/24 15:51 Last Admin: 02/28/24 16:07 Dose: 243 mg Documented By: ROSANNA Sodium Chloride (Nss) 500 mls @ 999 mls/hr IV .Q31M ONE Stop: 02/28/24 15:10 Last Infusion: 02/28/24 15:52 Dose: Infused Documented By: Admin: 02/28/24 14:47 Dose: 999 mls/hr Documented By: FLETCHER Ceftriaxone Sodium (Rocephin) 2,000 mg in 50 mls @ 100 mls/hr IV NOW STA Stop: 02/28/24 16:31 Last Admin: 02/28/24 16:33 Dose: 100 mls/hr Documented By: ROSANNA Ceftriaxone Sodium (Rocephin) 2,000 mg in 50 mls @ 100 mls/hr IV NOW STA Stop: 02/28/24 16:39 Last Admin: 02/28/24 16:33 Dose: Not Given Documented By: ROSANNA Ioversol (Optiray 320 125ml) 118 ml IV ONCE ONE Stop: 02/28/24 14:25 Last Admin: 02/28/24 14:24 Dose: 118 ml Documented By: ESTEFANIA Imaging Data Radiologist's Impression: Chest X-Ray 02/28/24 14:19 XR chest 1V portable CLINICAL HISTORY: stroke alert COMPARISON STUDY: Chest CT January 04, 2012. Chest radiograph April 12, 2022. FINDINGS: There is no pneumothorax. There is slight blunting of the right costophrenic angle. A moderate to hiatal hernia is again noted. There is mild cardiomegaly without evidence for pulmonary edema. IMPRESSION: 1. Cardiomegaly without radiographic evidence for pulmonary edema. 2. Trace right pleural effusion. 3. Moderate to large hiatal hernia. ACT 112: Negative or not required by law. Electronically signed by: Carlitos Ireland M.D. 02/28/2024 3:[address] 02/28/24 14:19 CT SCAN OF THE BRAIN WITHOUT IV CONTRAST CLINICAL HISTORY: Neurological deficit. Stroke like symptoms. COMPARISON STUDY: No priors. TECHNIQUE: Unenhanced axial CT scan of the brain is performed from the vertex to the skull base. A dose lowering technique was utilized adhering to the principles of ALARA. CT DOSE: 680.54 mGy.cm FINDINGS: Brain parenchyma: There is age-related involutional change noting moderate subcortical and periventricular microangiopathic disease. There is no hemorrhage, mass effect, or evidence of acute territorial ischemia by CT criteria. Lane-white matter differentiation is preserved. No extra-axial fluid collection is seen. Ventricles, sulci, cisterns: Prominent secondary to involutional change. Intracranial vasculature: There is atherosclerotic calcification of the cavernous carotid and vertebral arteries. Calvarium: Unremarkable. Sinuses and mastoids: Secretions are noted in the left maxillary antrum. The remaining visualized paranasal sinuses are clear. The mastoid air cells are well pneumatized. Orbits: The bony orbits are grossly intact. There are bilateral ocular lens implants. IMPRESSION: There is no hemorrhage, mass effect, or evidence of acute territorial ischemia by CT criteria. ACT 112: Negative or not required by law. Electronically signed by: Carmelo Espana M.D. 02/28/2024 2:26 PM Head CTA 02/28/24 14:20 CT angio head w con CLINICAL HISTORY: stroke symptoms TECHNIQUE: CT angiography of the head and neck was performed following intravenous administration of iodinated contrast. Coronal and sagittal MIPS were obtained from the axial data set and were submitted for review. Automated dose lowering techniques and/or adjustment according to patient size were utilized for this examination. All measurements were calculated based on NASCET criteria. CT DOSE: 369.99 mGy.cm Comparison: None available at the time of this dictation. FINDINGS: CTA Head: The anterior and posterior cerebral circulations are patent. origin of the right posterior cerebral artery is seen. IMPRESSION: No occlusion, hemodynamically significant stenosis, aneurysm, dissection, or arteriovenous malformation in the major intracranial arteries. Assessment of stenosis of the internal carotid arteries is based on NASCET criteria. ACT 112: Negative or not required by law. Electronically signed by: Damon Oquendo M.D. 02/28/2024 2:54 PM Neck CTA 02/28/24 14:20 CT ANGIOGRAM OF THE NECK CLINICAL HISTORY: Neurological deficit. Stroke like symptoms. Vertigo. COMPARISON STUDY: No priors. TECHNIQUE: Following the IV administration of 118 of Optiray 320, CT angiogram of the neck was performed from the aortic arch to the skull base. Images are reviewed in the axial, sagittal, and coronal planes. 3-D MIPS images are created and assessed. IV contrast was administered without complication. All measurements were calculated based on NASCET criteria. A dose lowering technique was utilized adhering to the principles of ALARA. FINDINGS: Thoracic aorta: There is atherosclerotic calcification of the visualized thoracic aorta. Imaged portions of the thoracic aorta are normal in caliber. The aortic arch demonstrates standard 3-vessel anatomy. Right carotid arterial system: The right common carotid artery is widely patent, as are the right internal and external carotid arteries. Mild calcified plaque is seen in the carotid bulb. Left carotid arterial system: The left common carotid artery is widely patent, as are the left internal and external carotid arteries. Calcified plaque is seen in the carotid bulb. Vertebral arteries: The left vertebral artery is dominant and widely patent. The right vertebral artery is diminutive but patent. Subclavian arteries: Widely patent bilaterally. Intracranial vasculature: The visualized intracranial vessels at the skull base are patent. Jugular veins: Patent bilaterally. Brain parenchyma: The visualized brain parenchyma the skull base is within normal limits. Lung apices: Partially visualized upper lobe lung parenchyma appears clear. Soft tissues: The visualized pharyngeal soft tissues are normal in appearance noting angiographic phase technique. The oropharyngeal airway appears widely patent. The right thyroid lobe is surgically absent. The left thyroid lobe is atrophic and heterogeneous. The salivary glands are atrophic. No cervical lymphadenopathy is seen. Skeletal structures: The skeletal structures are osteopenic. The visualized calvarium at the skull base appears intact. The imaged cervical spine is maintained noting multilevel spondylosis. Sinuses and mastoids: Secretions are noted in the left maxillary antrum. The remaining Visualized paranasal sinuses are clear. The mastoid air cells are well pneumatized. IMPRESSION: Unremarkable CT angiogram of the neck. ACT 112: Negative or not required by law. Electronically signed by: Carmelo Espana M.D. 02/28/2024 2:39 PM Discharge Plan Visit Data Chief Complaint: Weakness Stated Complaint: SLURRED SPEECH, WEAK, VERTIGO, MOTOR SKILLS ED Provider: Carmelo Romero Discharge Problem: Slurred speech, Anemia, Thrombocytopenia, Weakness, Acute UTI, CRF (chronic renal failure) Patient Disposition: Admitted As Inpatient Condition: Fair Discharge Problem: Anemia Qualifiers: Anemia type: unspecified type Qualified Code(s): D64.9 - Anemia, unspecified CRF (chronic renal failure) Qualifiers: Chronic kidney disease stage: unspecified stage Qualified Code(s): N18.9 - Chronic kidney disease, unspecified
[2024-02-28] MEDS: SODIUM CHLORIDE 0.9% 500 ML IV ONE (14:47)
--- NOTE | 2024-02-28 14:55 | CT Scan Report ---
CT angio head w con CLINICAL HISTORY: stroke symptoms TECHNIQUE: CT angiography of the head and neck was performed following intravenous administration of iodinated contrast. Coronal and sagittal MIPS were obtained from the axial data set and were submitte d for review. Automated dose lowering techniques and/or adjustment according to patient size were ut ilized for this examination. All measurements were calculated based on NASCET criteria. CT DOSE: 369.99 mGy.cm Comparison: None available at the time of this dictation. FINDINGS: CTA Head: The anterior and posterior cerebral circulations are patent. origin of the right pos terior cerebral artery is seen. IMPRESSION: No occlusion, hemodynamically significant stenosis, aneurysm, dissection, or arteriovenous malformati on in the major intracranial arteries. Assessment of stenosis of the internal carotid arteries is based on NASCET criteria. ACT 112: Negative or not required by law. Electronically signed by: Damon Oquendo M.D. 02/28/2024 2:54 PM
[2024-02-28 14:59] LABS: Hematocrit (blood only) 29.8 % (37.0-47.0); Hemoglobin 9.9 g/dl (12.0-16.0); Mean Corpuscular Hemoglobin 33.1 pg (25.0-34.0); Mean Corpuscular Hgb Conc 33.2 g/dL (32.0-36.0); Mean Corpuscular Volume 99.7 fL (80.0-100.0); Mean Platelet Volume 10.4 fL (9.4-12.4); Platelet Count 92 K/uL (130-400); RDW Coefficient of Variation 14.5 % (11.5-14.5); RDW Standard Deviation 52.8 fL (36.4-46.3); Red Blood Count 2.99 M/uL (4.20-5.40); White Blood Count 4.69 K/ul (4.8-10.8)
[2024-02-28 15:04] LABS: iSTAT Creatinine 1.8 mg/dl (0.6-1.3); iSTAT Hemoglobin 9.5 g/dl (12.0-16.0); iSTAT Ionized Calcium 1.15 mmol/l (1.12-1.32)
[2024-02-28 15:13] LABS: Albumin Globulin Ratio 0.8 (0.9-2); Albumin Level 2.9 gm/dl (3.4-5.0); BUN Creatinine Ratio 37.6 (10-20); Bilirubin,Total 0.6 mg/dl (0.2-1.0); Creatinine Clr Calc Pharmacy 20.8 ml/min; Est GFR (African American) 35.2 ml/min; Est GFR (Non-African American) 30.4 ml/min; Globulin 3.8 gm/dl (2.5-4.0); Magnesium 2.3 mg/dl (1.7-2.4); Potassium 3.9 mmol/L (3.5-5.1); Total Protein 6.7 gm/dl (6.0-8.3)
--- NOTE | 2024-02-28 15:22 | History & Physical Report ---
Date of Service February 28, 2024 Assessment & Plan (1) Stroke-like symptoms: Plan: Admit to med telemetry Currently stable, nontoxic-appearing, but still slurring her words Present to the ED this afternoon due to progressive strokelike symptoms such as increased confusion, weakness, slurred speech, and possible right-sided facial droop which began around 11:30 PM Patient was made a stroke alert on arrival to the ED CT of the head and brain without contrast, CTA of the head and neck were read as negative for acute findings Patient was evaluated by [facility] telestroke provider who did not recommend TNK administration and recommended admission for ongoing evaluation for possible TIA Will give 243 mg p.o. aspirin now as she had her 81 mg this a.m. Will have nurse swab her mouth with a moist swab to see if her slurred speech is due to her dry mucous membranes Will obtain MRI of the brain with and without contrast for further evaluation Will also obtain COVID-19/influenza/RSV swab due to generalized weakness and perceived change in taste after lunch tomorrow for possible viral illness causing her generalized weakness If MRI of the brain is positive for stroke will obtain TTE tomorrow Allow permissive hypertension for now until MRI results are back Bedside dysphagia screen, every 4 hours neurochecks, fall/aspiration precautions Will obtain a.m. hemoglobin A1c and fasting lipid panel Bilateral CHRISTELLE stockings for DVT prophylaxis with her thrombocytopenia If she passes her bedside dysphagia test we will start her healthy diet AM CBC, CMP, mag, PT/INR, hemoglobin A1c, lipid panel (2) UTI (urinary tract infection): Plan: UA obtained after admission appears positive for UTI While this is likely causing the patient's symptoms, we will continue workup for possible TIA Will start ceftriaxone today and obtain blood culture Follow blood/urine cultures Monitor for improvement with treatment of her UTI (3) Thrombocytopenia: Plan: Platelet count currently 92, patient has a known history of Matthews fluorosis and thrombocytopenia No signs of bleeding Continue to monitor daily CBC for now and monitor for signs of bleeding (4) Cirrhosis: Plan: LFTs are currently stable Ammonia level ordered in the ED is within normal limits at 49 No signs of patient being decompensated cirrhosis Monitor daily CMP (5) Hypothyroidism: Plan: Continue levothyroxine Plan The patient was discussed with Dr. Darby at the time of the admission History of Present Illness Chief Complaint: Stroke-like symptoms Primary Care Provider: NICOLÁS Gibson Cristina is an 84 year old female with a PMH significant for MATTHEWS Cirrhosis with portal hypertension, hypothyroidism, GERD, and anemia who presented to the [facility] ED on 02/28/2024 due to concerns from family for acute slurred speech, right-sided facial droop, and decreased cognition which was noticed around 12:30 PM this afternoon. Patient reportedly woke up in her jonathan l state of health this morning when she woke. Her family dropped her off for her scheduled chemical stress test around 9:20 AM this morning. After picking the patient up around 11:45 AM the patient's family started to notice that she was not acting herself. Symptoms including increased confusion, slurred speech, and possible right-sided facial droop progressed around 12:30 PM this afternoon which prompted ED arrival. On arrival to the ED the patient was made a stroke alert after initial evaluation. She remained stable in the ED. Labs were significant for a platelet count of 92. CT of the head and brain without contrast, CTA of the head, and CTA of the neck were read as negative for acute findings. The patient was evaluated by [facility] telestroke provider who did not recommend TNK administration and recommended admission and observation for additional workup for possible TIA. Prior to admission patient was given 500 mL normal saline. Patient was seen in bed in no acute distress at the time the exam with her daughter and granddaughter bedside, history was mainly obtained from the patient's family due to her current weakness and ongoing slurred speech. Family confirms that she was in her normal state of health and they dropped her off for her chemical stress test around 920 this morning. They picked her up around 11:45 AM, she appeared generally weak but was without focal neuro defects at that time. We then obtained lunch and went to [employer] to shop. While walking in [place] the patient's granddaughter explains that the patient seemed to get more weak and they decided she should go home to rest. While walking to their car in the parking lot the patient was trying to step over objects that were not in front of her such as the curb and appeared to be slouc lesly forward. She was also starting to slur her words. They brought her back to the outpatient cardiology clinic and was recommended to go to the ED for further evaluation. Her granddaughter explains that her worsening neurologic symptoms while in the parking lot at [employer] occurred between 1 to 1:30 PM. The patient denies any acute complaints at this time but does confirm that she feels as though she is slurring her words. Denies headaches, changes in vision, hearing, smell, but does feel as though her lunch tasted "off". When asked she denies unilateral weakness, paresthesias, chest pain, shortness of breath, abdominal pain, nausea/vomiting, dysuria, hematuria, melena, diarrhea, lower extremity swelling, and recent trauma. Family confirmed that the patient is a full code and her daughter would make medical decisions for her if she cannot make them herself. Please refer to Dr. Darby' attestation for any changes to the treatment plan Allergies Allergy/AdvReac Type Severity Reaction Status Date / Time Sulfa (Sulfonamide Allergy Mild Rash Verified 02/28/24 15:32 Antibiotics) Home Medications Medication Instructions Recorded Confirmed Type cholecalciferol (vitamin D3) 50 50 mcg PO QAM 01/03/22 02/28/24 History mcg (2,000 unit) capsule (Vitamin D3) cranberry fruit concentrate 250 mg 250 mg PO BID 01/03/22 02/28/24 History chewable tablet (Azo Cranberry) ferrous sulfate 325 mg (65 mg 325 mg PO QAM 01/03/22 02/28/24 History iron) tablet (iron) ascorbic acid (vitamin C) 500 mg 500 mg PO QAM 02/24/23 02/28/24 History capsule calcium citrate 315 mg 1 tab PO BID 02/24/23 02/28/24 History calcium-vitamin D3 6.25 mcg (250 unit) tablet (Citracal + Vitamin D Maximum) famotidine 40 mg tablet 40 mg PO QAM 02/24/23 02/28/24 History lifitegrast 5 % eye drops in a 1 drp ophthalmic (eye) BID 02/24/23 02/28/24 History dropperette (Xiidra) aspirin 81 mg tablet,delayed 81 mg PO DAILY 09/01/23 02/28/24 History release gabapentin 100 mg capsule 200 mg (2 x 100 mg) PO HS #180 caps 11/03/23 02/28/24 Rx Saccharomyces boulardii 10 billion 10 cell PO QAM 12/08/23 02/28/24 History cell capsule furosemide 40 mg tablet 40 mg PO QAM 12/08/23 02/28/24 History levothyroxine 75 mcg tablet 75 mcg PO DAILYBB 12/08/23 02/28/24 History multivitamin with iron 1 tab PO DAILY 12/08/23 02/28/24 History nadolol 20 mg tablet 20 mg PO QAM 12/08/23 02/28/24 History spironolactone 25 mg tablet 25 mg PO QAM 12/08/23 02/28/24 History vitamin A-vitamin C-vit E-min 1 tab PO QAM 12/08/23 02/28/24 History tablet Past Med/Surg History Problem List (Updated 02/28/24 @ 16:15 by Oneil Thorne PA-C) UTI (urinary tract infection) Stroke-like symptoms Thrombocytopenia Dog bite of right hand with infection (Acute) Cellulitis of right hand (Acute) Mild cognitive impairment GERD (gastroesophageal reflux disease) Hypothyroidism Vitamin D deficiency Anemia Macular degeneration Cirrhosis MATTHEWS Portal hypertension (Acute) Incarcerated hernia (Acute) Normocytic anemia Disorder of kidney Stone in renal pelvis Umbilical hernia Medical History Hearing deficit Hx of intestinal obstruction CKD (chronic kidney disease) History of kidney injury Hypertension History of COVID-19 Hypothyroidism Right ureteral calculus Mitral valve prolapse Esophageal varices Liver cirrhosis secondary to MATTHEWS Anemia Surgical History S/P hysterectomy S/P cystoscopy with ureteral stent placement History of esophagogastroduodenoscopy (EGD) Hx of colonoscopy Hx of lithotripsy History of foot surgery Hx of carpal tunnel repair History of partial hysterectomy Hx of tubal ligation Family History Sister Colorectal cancer Mother Myocardial infarction Father Myocardial infarction Brother Myocardial infarction Other Family history non-contributory No family history of adverse response to anesthesia Denies family history of Ovarian cancer Prostate cancer Breast cancer Social History Smoking Status: Never smoker Second Hand Exposure: No; Do You Dip or Chew Tobacco: No; Hx Alcohol Use: No Hx Substance Use: No Preferred Language: Turkish Communication Ability: Effective Visual Impairment: Partially Limited Hearing Ability: Use of Hearing Aid Book Critic Required: No Beliefs That Will Affect Care: None marital status: / Current Living Situation: Family Current Living Situation Comment: lives with her daughter and grandaughter 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 How many Children do You have: 2 Feels Safe at Home: Yes Diet: ideal protein Diet Comment: boost q morning w/ yougurt- attempts high protein caffeine: Yes (soda) during the past year weight has: remained stable Dental Care, Regularly: Yes Physical Activity Frequency: Daily Physical Activity Frequency Comment: helps w/ great grandchilden Seatbelt Use: always Assistive Devices: Cane, Walker and Wheelchair Physical Exam Physical Exam: Physical Exam: General: In no acute distress, stated age, non-toxic appearing HEENT: Normocephalic, atraumatic, no scleral icterus, pupils around round, symmetrical, and reactive to light, Dry mucus membranes, no signs of swelling of the tongue or oropharynx, trachea midline, no thyromegaly Chest/Pulm: No respiratory distress, symmetrical chest expansion, clear breath sounds throughout Cardiac: RRR, no murmurs noted Abdomen: Negative for ascites and bruising, normoactive bowel sounds, soft, non-tender to palpation throughout Musculoskeletal: Symmetrical and without signs of acute trauma, upper and lower extremities with full ROM, no atrophy, spasticity, or flaccidity Extremities: Radial, dorsalis pedis, and posterior tibial pulses are intact and symmetrical, no edema noted in the BL LE's Skin: Warm, dry, no rashes , lesions, or scars noted Neuro: Alert and oriented to person, place, month, year, and president, patient does appear to be slurring her words, no other focal defects, CN II-XII tested and intact, negative pronator drift testing in the bilateral upper extremities, no tremors noted Psych: No acute distress, calm and cooperative during the exam Results & Data Results & Data Vital Signs (Past 12 Hours) Vital Signs Temp Pulse Pulse Resp BP BP Pulse Ox 02/28/24 14:42 96 02/28/24 14:35 73 20 96 02/28/24 14:35 36.9 C 74 20 116/74 95 02/28/24 14:35 93 02/28/24 14:14 36.8 C 78 20 110/66 98 O2 Del Method 02/28/24 14:42 Room Air 02/28/24 14:35 Room Air 02/28/24 14:35 Room Air 02/28/24 14:35 Room Air 02/28/24 14:14 Room Air Laboratory Results Abnormal lab results 02/28/24 02/28/24 02/28/24 Range/Units 14:43 14:46 14:51 WBC 4.69 L (4.8-10.8) K/ul RBC 2.99 L (4.20-5.40) M/uL Hgb 9.9 L (12.0-16.0) g/dl POC Hgb 9.5 L (12.0-16.0) g/dl Hct 29.8 L (37.0-47.0) % POC Hct 28 L (37-47) % RDW Std Deviation 52.8 H (36.4-46.3) fL Plt Count 92 L (130-400) K/uL Sodium 132 L (136-145) mmol/L POC Total CO2 20 L (24-31) mmol/L POC BUN 53 H (7-18) mg/dl BUN 59 H (6-23) mg/dl Creatinine 1.57 H (0.6-1.2) mg/dl POC Creatinine 1.8 H (0.6-1.3) mg/dl BUN/Creatinine Ratio 37.6 H (10-20) Glucose 144 H (70-99(Fasting)) mg/dl POC Glucose 166 H (70-99) mg/dl POC Glucose (other) 135 H (70-99) mg/dl AST 50 H (13-39) U/L Alkaline Phosphatase 257 H (34-104) U/L Albumin 2.9 L (3.4-5.0) gm/dl Albumin/Globulin Ratio 0.8 L (0.9-2) Diagnostic Findings Chest X-Ray 02/28/24 14:19 XR chest 1V portable CLINICAL HISTORY: stroke alert COMPARISON STUDY: Chest CT January 04, 2012. Chest radiograph April 12, 2022. FINDINGS: There is no pneumothorax. There is slight blunting of the right costophrenic angle. A moderate to hiatal hernia is again noted. There is mild cardiomegaly without evidence for pulmonary edema. IMPRESSION: 1. Cardiomegaly without radiographic evidence for pulmonary edema. 2. Trace right pleural effusion. 3. Moderate to large hiatal hernia. ACT 112: Negative or not required by law. Electronically signed by: Carlitos Ireland M.D. 02/28/2024 3:[address] 02/28/24 14:19 CT SCAN OF THE BRAIN WITHOUT IV CONTRAST CLINICAL HISTORY: Neurological deficit. Stroke like symptoms. COMPARISON STUDY: No priors. TECHNIQUE: Unenhanced axial CT scan of the brain is performed from the vertex to the skull base. A dose lowering technique was utilized adhering to the principles of ALARA. CT DOSE: 680.54 mGy.cm FINDINGS: Brain parenchyma: There is age-related involutional change noting moderate subcortical and periventricular microangiopathic disease. There is no hemorrhage, mass effect, or evidence of acute territorial ischemia by CT cri teria. Lane-white matter differentiation is preserved. No extra-axial fluid collection is seen. Ventricles, sulci, cisterns: Prominent secondary to involutional change. Intracranial vasculature: There is atherosclerotic calcification of the cavernous carotid and vertebral arteries. Calvarium: Unremarkable. Sinuses and mastoids: Secretions are noted in the left maxillary antrum. The remaining visualized paranasal sinuses are clear. The mastoid air cells are well pneumatized. Orbits: The bony orbits are grossly intact. There are bilateral ocular lens implants. IMPRESSION: There is no hemorrhage, mass effect, or evidence of acute territorial ischemia by CT criteria. ACT 112: Negative or not required by law. Electronically signed by: Carmelo Espana M.D. 02/28/2024 2:26 PM Head CTA 02/28/24 14:20 CT angio head w con CLINICAL HISTORY: stroke symptoms TECHNIQUE: CT angiography of the head and neck was performed following intravenous administration of iodinated contrast. Coronal and sagittal MIPS were obtained from the axial data set and were submitted for review. Automated dose lowering techniques and/or adjustment according to patient size were utilized for this examination. All measurements were calculated based on NASCET criteria. CT DOSE: 369.99 mGy.cm Comparison: None available at the time of this dictation. FINDINGS: CTA Head: The anterior and posterior cerebral circulations are patent. origin of the right posterior cerebral artery is seen. IMPRESSION: No occlusion, hemodynamically significant stenosis, aneurysm, dissection, or arteriovenous malformation in the major intracranial arteries. Assessment of stenosis of the internal carotid arteries is based on NASCET criteria. ACT 112: Negative or not required by law. Electronically signed by: Damon Oquendo M.D. 02/28/2024 2:54 PM Neck CTA 02/28/24 14:20 CT ANGIOGRAM OF THE NECK CLINICAL HISTORY: Neurological deficit. Stroke like symptoms. Vertigo. COMPARISON STUDY: No priors. TECHNIQUE: Following the IV administration of 118 of Optiray 320, CT angiogram of the neck was performed from the aortic arch to the skull base. Images are reviewed in the axial, sagittal, and coronal planes. 3-D MIPS images are created and assessed. IV contrast was administered without complication. All measurements were calculated based on NASCET criteria. A dose lowering technique was utilized adhering to the principles of ALARA. FINDINGS: Thoracic aorta: There is atherosclerotic calcification of the visualized thoracic aorta. Imaged portions of the thoracic aorta are normal in caliber. The aortic arch demonstrates standard 3-vessel anatomy. Right carotid arterial system: The right common carotid artery is widely patent, as are the right internal and external carotid arteries. Mild calcified plaque is seen in the carotid bulb. Left carotid arterial system: The left common carotid artery is widely patent, as are the left internal and external carotid arteries. Calcified plaque is seen in the carotid bulb. Vertebral arteries: The left vertebral artery is dominant and widely patent. The right vertebral artery is diminutive but patent. Subclavian arteries: Widely patent bilaterally. Intracranial vasculature: The visualized intracranial vessels at the skull base are patent. Jugular veins: Patent bilaterally. Brain parenchyma: The visualized brain parenchyma the skull base is within normal limits. Lung apices: Partially visualized upper lobe lung parenchyma appears clear. Soft tissues: The visualized pharyngeal soft tissues are normal in appearance noting angiographic phase technique. The oropharyngeal airway appears widely patent. The right thyroid lobe is surgically absent. The left thyroid lobe is atrophic and heterogeneous. The salivary glands are atrophic. No cervical lymphadenopathy is seen. Skeletal structures: The skeletal structures are osteopenic. The visualized calvarium at the skull base appears intact. The imaged cervical spine is maintained noting multilevel spondylosis. Sinuses and mastoids: Secretions are noted in the left maxillary antrum. The remaining Visualized paranasal sinuses are clear. The mastoid air cells are well pneumatized. IMPRESSION: Unremarkable CT angiogram of the neck. ACT 112: Negative or not required by law. Electronically signed by: Carmelo sEpana M.D. 02/28/2024 2:39 PM ECG Additional Comments: Normal sinus rhythm without significant ST segment or T wave change Code Status & VTE Plan Code Status Full code VTE Prophylaxis Plan VTE Prophylaxis will be ordered: Yes Supervising Physician Co-Signing Physician Notes I have personally seen, evaluated and examined the patient. I have also personally discussed the management of the patient with the resident physician/LINO and I agree with the exam findings documented in the history and physical examination and the documented assessment and plan unless otherwise stated below. Brief Exam: In general this is a pleasant 85-year-old female she is accompanied by both her daughter and granddaughter at the time of my examination. She is alert and oriented x 3. She does have dry mucous membranes. She is receiving her aspirin at the time of my evaluation HEENT: Normocephalic atraumatic. I do not appreciate any facial droop or tongue protrudes in the midline. Her mucous membranes are dry as discussed. Neck: No carotid bruits no JVD. Heart: Regular I do not appreciate any ifrah murmur. Lungs: Clear bilaterally. Abdomen: Flat soft and nontender positive bowel sounds. Extremities: Intact. Strength is 5 out of 5 in extremities x 4 my exam. There is no pronator drift no cerebellar sign. No peripheral edema. Neurologically: She did have some slight dysarthria. She was having trouble swallowing her aspirin I went and got her a drink and had dysarthria drastically improved after drinking some water. I think is probably secondary to mechanical issues with dry mucous membranes more than anything. Plan: As discussed above. IV Rocephin. Blood cultures. IV fluids. Reassess labs in the morning. She is on the stroke service given the presenting symptoms. MRI either tonight or tomorrow. Stroke protocol. Please refer to orders for further planning. PG Care Time/CCT Total # of Minutes Spent Total Time Spent with Patient: Total time spent is greater than 50% in coordination of care (as documented) at patient's floor/unit and/or counseling patient: Coding [place] [address] INT INP/OBS CARE 3/75MIN Patient Type Established Medical Decision Making High Complexity Diagnoses Stroke-like symptoms R29.90 UTI (urinary tract infection) N39.0 Thrombocytopenia D69.6 Cirrhosis of liver without ascites, unspecified hepatic cirrhosis type K74.60 Ascites presence: without ascites Hepatic cirrhosis type: unspecified hepatic cirrhosis Acquired hypothyroidism E03.9 Hypothyroidism type: acquired (4) Cirrhosis Ascites presence: without ascites Hepatic cirrhosis type: unspecified hepatic cirrhosis Qualified Code(s): K74.60 - Unspecified cirrhosis of liver (5) Hypothyroidism Hypothyroidism type: acquired Qualified Code(s): E03.9 - Hypothyroidism, unspecified
[2024-02-28] MEDS ORDERED: PHARMACIST DISCHARGE MED REC CONSULT PRN (15:23)
[2024-02-28 15:25] LABS: INR 1.1 (0.9-1.1); Partial Thromboplastin Ratio 1.2; Partial Thromboplastin Time 31 Seconds (21-31); Prothrombin Time 11.9 Seconds (9.0-12.0)
--- NOTE | 2024-02-28 15:25 | XRay Report ---
XR chest 1V portable CLINICAL HISTORY: stroke alert COMPARISON STUDY: Chest CT January 04, 2012. Chest radiograph April 12, 2022. FINDINGS: There is no pneumothorax. There is slight blunting of the right costophrenic angle. A moder ate to hiatal hernia is again noted. There is mild cardiomegaly without evidence for pulmonary edema. IMPRESSION: 1. Cardiomegaly without radiographic evidence for pulmonary edema. 2. Trace right pleural effusion. 3. Moderate to large hiatal hernia. ACT 112: Negative or not required by law. Electronically signed by: Carlitos Ireland M.D. 02/28/2024 3:23 PM
[2024-02-28 15:44] LABS: Appearance Urine Clear (Clear); Bacteria Urine Automated 4+ (None Seen); Bilirubin Urine Negative (Negative); Blood Urine Negative (Negative); Color Urine Yellow; Epithelial Cell Urine Auto 0-2 /hpf (0-2); Glucose Urine UA Negative (Negative); Ketones Urine Negative (Negative); Leukocyte Esterase Urine 2+ (Negative); Nitrite Urine Positive (Negative); Protein Urine Negative (Negative); RBC Urine Automated 0-2 /hpf (0-2); Specific Gravity Urine 1.018 (1.000-1.030); Urobilinogen Urine Negative (Negative); WBC Urine Automated 0-5 /hpf (0-5); pH Urine 5.5 (4.5-7.5)
[2024-02-28] MEDS: ASPIRIN 81 MG ECTAB PO STA (16:07)
[2024-02-28] MEDS: cefTRIAXone SODIUM 2,000 MG/50 ML BAG IV STA ×2 (16:33)
[2024-02-28] MEDS: PLASMA-LYTE A 1,000 ML IV SCH (18:29)
--- NOTE | 2024-02-28 18:54 | Magnetic Resonance Report ---
MR brain wo con CLINICAL HISTORY: stroke workup TECHNIQUE: Multiplanar and multisequence MR images of the brain were obtained without intravenous con trast. Comparison: Comparison is made to CTA head and neck 02/28/2024 FINDINGS: No abnormal restricted diffusion is identified. Foci of T2 and FLAIR hyperintensity are noted in the paraventricular areas consistent with chronic small vessel ischemic disease. Ex vacuo ventriculomegal y and sulcal enlargement is noted compatible with diffuse volume loss. No mass is seen. There is no m ass effect or midline shift. There is no evidence of acute intraparenchymal hemorrhage. No extra axia l fluid collections are seen. The corpus callosum, pituitary gland, and cerebellar tonsils appear meredith ssly unremarkable. Flow voids of the major intracranial arterial vessels are identified. The imaged portions of the para nasal sinuses, mastoid air cells, and orbits are unremarkable. IMPRESSION: No acute abnormality and in particular no evidence of acute infarct. ACT 112: Negative or not required by law. Electronically signed by: Damon Oquendo M.D. 02/28/2024 6:53 PM
[2024-02-28 19:39] LABS: Influenza A virus by PCR Negative (Neg); Influenza B virus by PCR Negative (Neg); RSV by PCR Negative (Neg); SARS CoV2 RNA(COVID-19) Ceph NEGATIVE (Negative)
[2024-02-28] MEDS: GABAPENTIN 100 MG CAP PO SCH (22:22)
[2024-02-28] MEDS: ARTIFICIAL TEARS OP SCH (22:23)
[2024-02-29 06:08] LABS: Basophils # (auto) 0.03 K/uL (0.00-0.20); Basophils % (auto) 0.8 %; Eosinophils # (auto) 0.09 K/uL (0.00-0.50); Eosinophils % (auto) 2.4 %; Hematocrit (blood only) 29.7 % (37.0-47.0); Lymphocytes # (auto) 1.43 K/uL (1.20-3.40); Lymphocytes % (auto) 38.5 %; Mean Corpuscular Hemoglobin 33.2 pg (25.0-34.0); Mean Corpuscular Hgb Conc 33.7 g/dL (32.0-36.0); Mean Corpuscular Volume 98.7 fL (80.0-100.0); Mean Platelet Volume 10.5 fL (9.4-12.4); Monocytes # (auto) 0.89 K/uL (0.11-0.59); Neutrophils # (auto) 1.27 K/uL (1.40-6.50); Neutrophils % (auto) 34.3 %; Platelet Count 77 K/uL (130-400); RDW Coefficient of Variation 14.3 % (11.5-14.5); RDW Standard Deviation 52.1 fL (36.4-46.3); Red Blood Count 3.01 M/uL (4.20-5.40); White Blood Count 3.71 K/ul (4.8-10.8)
[2024-02-29 06:22] LABS: Albumin Globulin Ratio 0.7 (0.9-2); Albumin Level 2.7 gm/dl (3.4-5.0); BUN Creatinine Ratio 37.2 (10-20); Bilirubin,Total 0.5 mg/dl (0.2-1.0); Calcium 8.8 mg/dl (8.6-10.3); Chol HDL Ratio 3.7 (0-5); Creatinine Clr Calc Pharmacy 22.1 ml/min; Est GFR (African American) 37.8 ml/min; Est GFR (Non-African American) 32.6 ml/min; Globulin 3.8 gm/dl (2.5-4.0); Magnesium 2.4 mg/dl (1.7-2.4); Potassium 3.9 mmol/L (3.5-5.1); Total Protein 6.5 gm/dl (6.0-8.3)
[2024-02-29] MEDS: LEVOTHYROXINE SODIUM 75 MCG TABLET PO SCH (06:22)
[2024-02-29 06:40] LABS: INR 1.1 (0.9-1.1); Prothrombin Time 11.5 Seconds (9.0-12.0)
[2024-02-29 07:22] LABS: Estimated Average Glucose 117 mg/dl; Hemoglobin A1C 5.7 % (4.5-5.6)
[2024-02-29 07:36] VITALS: TEMP 97.9
--- NOTE | 2024-02-29 08:22 | Electrocardiogram Report ---
Test Reason : Blood Pressure : */* mmHG Vent. Rate : 72 BPM Atrial Rate : 72 BPM P-R Int : 206 ms QRS Dur : 80 ms QT Int : 436 ms P-R-T Axes : 50 -25 0 degrees QTcB Int : 477 ms Normal sinus rhythm Low voltage QRS Poor R wave progression, consider anterior PR vs. lead placement vs. LVH Abnormal ECG When compared with ECG of 12-Apr-2022 15:57, Premature supraventricular complexes are no longer Present T wave inversion more evident in Anterior leads Confirmed by Mike See ([id number]) on 02/29/2024 8:22:19 AM Referred By: REFERRED SELF Confirmed By: Mike See
[2024-02-29] MEDS: ASPIRIN 81 MG ECTAB PO SCH (09:07)
[2024-02-29] MEDS: FERROUS SULFATE 325 MG TAB PO SCH (09:07)
[2024-02-29] MEDS: FAMOTIDINE 20 MG TAB PO SCH (09:07)
[2024-02-29] MEDS: nadoloL 40 MG TAB PO SCH (09:08)
[2024-02-29] MEDS: SPIRONOLACTONE 25 MG TAB PO SCH (09:09)
[2024-02-29 11:14] VITALS: PULSE 50; RESP 18; O2SAT 90
--- NOTE | 2024-02-29 11:33 | XCELERA ---
[id number]
[2024-02-29] MEDS ORDERED: STROKE PATIENT DISCHARGE STA (11:44)
--- NOTE | 2024-02-29 11:51 | Pharmacy Report ---
- Date of Service February 29, 2024 - Pharmacy CVA/TIA Medication Review Medications to Prevent Stroke handout has been added to the patients discharge packet. Antiplatelet(s) * aspirin + clopidogrel x 21 days, then monotherapy aspirin Cholesterol * High intensity statin: atorvastatin 40 mg daily Therapeutic Anticoagulation * No history of Afib/Aflutter noted Type 2 Diabetes * Patient does not have T2DM
[2024-02-29 12:00] VITALS: BP 128/67
[2024-02-29] MEDS ORDERED: cefTRIAXone SODIUM 2,000 MG/50 ML BAG IV SCH (15:00)
[2024-02-29 22:05] LABS: A calco-baum cmplx NotReported Not Detected (NotDetected); Bact fragilis Not Reported Not Detected (NotDetected); Blood Culture Id Panel See PCR Comment (NotDetected); C auris Not Reported Not Detected (NotDetected); Calbicans Not Reported Not Detected (NotDetected); Candida glabrata Not Reported Not Detected (NotDetected); Candida krusei Not Reported Not Detected (NotDetected); Cneoformans/gatti Not Reported Not Detected (NotDetected); Cparapsilosis Not Reported Not Detected (NotDetected); E cloacae compx Not Reported Not Detected (NotDetected); Efaecalis Not Reported Not Detected (NotDetected); Efaecium Not Reported Not Detected (NotDetected); Enterobacterales Not Reported Not Detected (NotDetected); Escherichia coli Not Reported Not Detected (NotDetected); H influenzae Not Reported Not Detected (NotDetected); K aerogenes Not Reported Not Detected (NotDetected); Koxytoca Not Reported Not Detected (NotDetected); Kpneumoniae grp Not Reported Not Detected (NotDetected); Lmonocyt Not Reported Not Detected (NotDetected); N meningitidis Not Reported Not Detected (NotDetected); P aeruginosa Not Reported Not Detected (NotDetected); Proteus spp Not Reported Not Detected (NotDetected); Salmonella spp Not Reported Not Detected (NotDetected); Staph lugdunensis Not Reported Not Detected (NotDetected); Staph spp. Not Reported DETECTED (NotDetected); Staphaureus Not Reported Not Detected (NotDetected); Staphepi Not Reported Not Detected (NotDetected); Stenmaltophilia Not Reported Not Detected (NotDetected); Strep agal(GrpB) Not Reported Not Detected (NotDetected); Strep pneum Not Reported Not Detected (NotDetected); Strep pyog (GrpA) Not Reported Not Detected (NotDetected); Strep spp Not Reported Not Detected (NotDetected)
[2024-02-29 22:12] LABS: Staphylococcus spp. DETECTED (NotDetected)
--- NOTE | 2024-03-04 14:28 | Discharge Summary ---
Discharge Summary Date of Service February 29, 2024 Principal Dx & Hospital Course #1 = Principal Diagnosis (1) Stroke-like symptoms: Admit to med telemetry Currently stable, nontoxic-appearing, but still slurring her words Present to the ED this afternoon due to progressive strokelike symptoms such as increased confusion, weakness, slurred speech, and possible right-sided facial droop which began around 11:30 PM Patient was made a stroke alert on arrival to the ED CT of the head and brain without contrast, CTA of the head and neck were read as negative for acute findings Patient was evaluated by [facility] telestroke provider who did not recommend TNK administration and recommended admission for ongoing evaluation for possible TIA Will give 243 mg p.o. aspirin now as she had her 81 mg this a.m. Will have nurse swab her mouth with a moist swab to see if her slurred speech is due to her dry mucous membranes Will obtain MRI of the brain : negative. TTE: was ordered but not completed prior to discharge. Echo: showed pulmonary AVM. Patient will probably need a CT angiogram to better characterize the AVM to determine if this needs to be embolized. (2) UTI (urinary tract infection): UA obtained after admission appears positive for UTI While this is likely causing the patient's symptoms, we will continue workup for possible TIA Will start ceftriaxone today and obtain blood culture will complete course with PO antibiotics (3) Thrombocytopenia: Platelet count currently 92, patient has a known history of Villagomez fluorosis and thrombocytopenia No signs of bleeding (4) Cirrhosis: LFTs are currently stable Ammonia level ordered in the ED is within normal limits at 49 No signs of patient being decompensated cirrhosis (5) Hypothyroidism: Continue levothyroxine Notes For Next Care Provider Patient will need a pulmonary angiogram to better assess her Pulmonary AVM Admission HPI Per Admitting Provider Cristina is an 84 year old female with a PMH significant for VILLAGOMEZ Cirrhosis with portal hypertension, hypothyroidism, GERD, and anemia who presented to the [facility] ED on 02/28/2024 due to concerns from family for acute slurred speech, right-sided facial droop, and decreased cognition which was noticed around 12:30 PM this afternoon. Patient reportedly woke up in her normal state of health this morning when she woke. Her family dropped her off for her scheduled chemical stress test around 9:20 AM this morning. After picking the patient up around 11:45 AM the patient's family started to notice that she was not acting herself. Symptoms including increased confusion, slurred speech, and possible right-sided facial droop progressed around 12:30 PM this afternoon which prompted ED arrival. On arrival to the ED the patient was made a stroke alert after initial evaluation. She remained stable in the ED. Labs were significant for a platelet count of 92. CT of the head and brain without contrast, CTA of the head, and CTA of the neck were read as negative for acute findings. The patient was evaluated by [facility] telestroke provider who did not recommend TNK administration and recommended admission and observation for additional workup for possible TIA. Prior to admission patient was given 500 mL normal saline. Patient was seen in bed in no acute distress at the time the exam with her daughter and granddaughter bedside, history was mainly obtained from the patient's family due to her current weakness and ongoing slurred speech. Family confirms that she was in her normal state of health and they dropped her off for her chemical stress test around 920 this morning. They picked her up around 11:45 AM, she appeared generally weak but was without focal neuro defects at that time. We then obtained lunch and went to [employer] to shop. While walking in [employer] the patient's granddaughter explains that the patient seemed to get more weak and they decided she should go home to rest. While walking to their car in the parking lot the patient was trying to step over objects that were not in front of her such as the curb and appeared to be slouching forward. She was also starting to slur her words. They brought her back to the outpatient cardiology clinic and was recommended to go to the ED for further evaluation. Her granddaughter explains that her worsening neurologic symptoms while in the parking lot at [employer] occurred between 1 to 1:30 PM. The patient denies any acute complaints at this time but does confirm that she feels as though she is slurring her words. Denies headaches, changes in vision, hearing, smell, but does feel as though her lunch tasted "off". When asked she denies unilateral weakness, paresthesias, chest pain, shortness of breath, abdominal pain, nausea/vomiting, dysuria, hematuria, melena, diarrhea, lower extremity swelling, and recent trauma. Family confirmed that the patient is a full code and her daughter would make medical decisions for her if she cannot make them herself. Discharge Exam General: In no acute distress, stated age, non-toxic appearing HEENT: Normocephalic, atraumatic Chest/Pulm: No respiratory distress, symmetrical chest expansion, clear breath sounds throughout Cardiac: RRR, no murmurs noted Abdomen: Negative for ascites and bruising, normoactive bowel sounds, soft, non- tender to palpation throughout Musculoskeletal: Symmetrical and without signs of acute trauma, upper and lower extremities with full ROM, no atrophy, spasticity, or flaccidity Extremities: Radial, dorsalis pedis, and posterior tibial pulses are intact and symmetrical, no edema noted in the BL LE's Skin: Warm, dry, no rashes , lesions, or scars noted Neuro: Alert and oriented to person, place, month, year, and president, patient no longer slurring words; Psych: No acute distress, calm and cooperative during the exam Updated Medication List Medication Instructions Recorded Confirmed Type cholecalciferol (vitamin D3) 50 50 mcg PO QAM 01/03/22 02/28/24 History mcg (2,000 unit) capsule (Vitamin D3) cranberry fruit concentrate 250 mg 250 mg PO BID 01/03/22 02/28/24 History chewable tablet (Azo Cranberry) ferrous sulfate 325 mg (65 mg 325 mg PO QAM 01/03/22 02/28/24 History iron) tablet (iron) ascorbic acid (vitamin C) 500 mg 500 mg PO QAM 02/24/23 02/28/24 History capsule calcium citrate 315 mg 1 tab PO BID 02/24/23 02/28/24 History calcium-vitamin D3 6.25 mcg (250 unit) tablet (Citracal + Vitamin D Maximum) famotidine 40 mg tablet 40 mg PO QAM 02/24/23 02/28/24 History lifitegrast 5 % eye drops in a 1 drp ophthalmic (eye) BID 02/24/23 02/28/24 History dropperette (Xiidra) aspirin 81 mg tablet,delayed 81 mg PO DAILY 09/01/23 02/28/24 History release gabapentin 100 mg capsule 200 mg (2 x 100 mg) PO HS #180 caps 11/03/23 02/28/24 Rx Saccharomyces boulardii 10 billion 10 cell PO QAM 12/08/23 02/28/24 History cell capsule furosemide 40 mg tablet 40 mg PO QAM 12/08/23 02/28/24 History levothyroxine 75 mcg tablet 75 mcg PO DAILYBB 12/08/23 02/28/24 History multivitamin with iron 1 tab PO DAILY 12/08/23 02/28/24 History nadolol 20 mg tablet 20 mg PO QAM 12/08/23 02/28/24 History spironolactone 25 mg tablet 25 mg PO QAM 12/08/23 02/28/24 History vitamin A-vitamin C-vit E-min 1 tab PO QAM 12/08/23 02/28/24 History tablet atorvastatin 40 mg tablet 40 mg PO HS #30 tabs 02/29/24 Rx cefdinir 300 mg capsule 300 mg PO BID #9 caps 02/29/24 Rx clopidogrel 75 mg tablet (Plavix) 75 mg PO DAILY #20 tabs 02/29/24 Rx pantoprazole 40 mg tablet,delayed 40 mg PO DAILY #21 tabs 02/29/24 Rx release Hospital Stay Data Consultations 02/28/24 15:14 ED Decision to Admit Stat Diagnostic Imagining Performed 02/28/24 14:19 CT head/brain wo con Stat 02/28/24 14:20 CT angio head w con Stat CT angio neck with con Stat 02/28/24 15:35 MRI Brain [MR brain wo con] Urgent Pending Results Patient Have Any Pending Studies at Discharge: No Discharge Instructions Given to Patient (Per Discharging Provider) recommend followup with PCP in 1-2 weeks. Risk Factors for Stroke: You can reduce your chances of stroke by working with your medical provider to adopt a healthy lifestyle. Some specific ways to lower your chance of stroke are: * If you are a smoker, now is the time to stop smoking cigarettes * If you are diabetic, improve the control of your blood sugars * Avoid excessive amounts of alcohol * Control high blood pressure * Lose weight if you are overweight * Be sure to lead an active lifestyle * Eat a healthy diet low in salt, cholesterol and fat You should know about other risk factors for stroke that you are unable to control. These include: * Age 55 years or older * Male gender * Certain racial groups: , or / * Family History of Stroke, Mini stroke or Heart Attack * Sickle Cell Disease Follow Up: It is important for you to keep your follow up appointments with your medical provider. Who to Call and When: Medical Emergencies: Call 911 immediately if you experience any of the following warning signs and symptoms of Stroke: * Sudden numbness or weakness of the face, arm or leg, especially on one side of the body * Sudden confusion, trouble speaking or understanding * Sudden trouble seeing in one or both eyes * Sudden trouble walking, dizziness, loss of balance or coordination * Sudden severe headache with no cause Do not delay calling 911 if you experience any warning signs or symptoms of a stroke. Delay in seeking medical attention may affect what treatments can be given to you. . Total Time Total Time Spent Total Time Spent (In Minutes): 32 Coding Level of Care Code 58689 INP/OBS DISCH >30 MIN Diagnoses Stroke-like symptoms R29.90 UTI (urinary tract infection) N39.0 Thrombocytopenia D69.6 Cirrhosis of liver without ascites, unspecified hepatic cirrhosis type K74.60 Ascites presence: without ascites Hepatic cirrhosis type: unspecified hepatic cirrhosis Acquired hypothyroidism E03.9 Hypothyroidism type: acquired
--- NOTE | 2024-03-04 14:55 | Communication Note ---
Date of Service: March 04, 2024 Tried calling patient to give update of echocardiogram findings. I informed her PCP and nurse navigator. [facility] will continue in the outpatient setting.
== END 2024-02-29 12:52 | disposition home or self-care (01) ==
LOC: EDINP 14:09 → ED 14:09 → SUATTDRO 15:21 → 2N 21:05

== ENCOUNTER 2024-10-12 14:05 | Inpatient (IN) ==
[2024-10-12 14:50] LABS: Hemoglobin 11.3 g/dl (12.0-16.0); Mean Corpuscular Hemoglobin 33.3 pg (25.0-34.0); Mean Corpuscular Hgb Conc 34.2 g/dL (32.0-36.0); Mean Corpuscular Volume 97.3 fL (80.0-100.0); Mean Platelet Volume 10.5 fL (9.4-12.4); Platelet Count 151 K/uL (130-400); RDW Coefficient of Variation 14.1 % (11.5-14.5); RDW Standard Deviation 50.8 fL (36.4-46.3); Red Blood Count 3.39 M/uL (4.20-5.40); White Blood Count 6.73 K/ul (4.8-10.8)
[2024-10-12 15:02] LABS: Albumin Globulin Ratio 0.7 (0.9-2); Albumin Level 2.9 gm/dl (3.4-5.0); BUN Creatinine Ratio 35.3 (10-20); Bilirubin,Total 0.9 mg/dl (0.2-1.0); Calcium 8.5 mg/dl (8.6-10.3); Creatinine Clr Calc Pharmacy 23.5 ml/min; Globulin 4.3 gm/dl (2.5-4.0); Potassium 4.2 mmol/L (3.5-5.1); Total Protein 7.2 gm/dl (6.0-8.3)
[2024-10-12 15:09] LABS: Troponin I High Sensitivity 10.5 pg/ml (0-14)
[2024-10-12 15:10] LABS: INR 1.1 (0.9-1.1); Partial Thromboplastin Ratio 1.2; Partial Thromboplastin Time 33 Seconds (21-31); Prothrombin Time 12.3 Seconds (9.0-12.0)
--- NOTE | 2024-10-12 16:02 | Emergency Department Note ---
Impression & Plan Pneumonia, Cough with hemoptysis ED Provider Note NAME: ADRIAN HUGHES AGE: 84 SEX: F : 1940 ARRIVES VIA: Walk-In INFORMANT: Patient, ED PROVIDER(S): Sarath Hyatt DO CHIEF COMPLAINT: Hemoptysis HPI: The patient is an 84-year-old female who presented to the emergency department from her family doctor's office for an evaluation after having mopped assist. The patient denies having any lower extremity swelling or pain. She has a history of cirrhosis. She also has a history of portal hypertension. The patient denies having any back pain. She has noticed upper abdominal pain as well as a cough over the last few weeks. ROS: See above HPI for pertinent positives & negatives. A total of 10 systems reviewed and were otherwise negative. PAST MEDICAL HISTORY: See Below PAST SURGICAL HISTORY: See Below FAMILY HISTORY: See Below SOCIAL HISTORY: See Below HOME MEDICATIONS: See Below ALLERGIES: See Below VITALS: See Below PHYSICAL EXAMINATION: GENERAL: Patient is awake alert in no acute distress patient is resting comfortably and showing no signs of anxiety EYES: The conjunctivae are clear. The pupils are round and reactive. EARS, NOSE, MOUTH AND THROAT: The nose is without any evidence of any deformity. NECK: The neck is nontender and supple. RESPIRATORY: Normal respiratory effort is noted there is no evidence of wheezing rhonchi or rales CARDIOVASCULAR: Regular rate and rhythm noted there no murmurs rubs or gallops normal S1 normal S2. GASTROINTESTINAL: There is upper abdominal tenderness to palpation. There was no specific guarding or rigidity. MUSCULOSKELETAL/EXTREMITIES: There is no evidence of gross deformity full range of motion is noted in the hips and shoulders. SKIN: There is no obvious evidence of any rash. There are no petechiae, pallor or cyanosis noted. NEUROLOGIC: Patient is awake alert and oriented x3 MEDICAL DECISION MAKING: The patient is an 84-year-old female who presented to the emergency department with hemoptysis. The patient has a history of cirrhosis. She also has a history of portal hypertension. She does feel as though she is coughing up the blood but because of her past medical history further radiographic studies and laboratories were obtained to ensure this was not upper GI bleeding. Ultimately the patient was found to have pulmonary infiltrates. She was started on IV antibiotics in the emergency department. She was reevaluated multiple times. I discussed her condition with the on-call [facility] hospitalist. They have agreed to evaluate the patient in the emergency department for further management and disposition. Triage Nursing notes reviewed. Prior medical records reviewed Vital Signs: reviewed and remarkable for no significant abnormalities Differential diagnosis: Reactive airway disease, pneumonia, pneumothorax, COPD, CHF, infections, cardiac ischemia, pulmonary embolism, musculoskeletal, gastrointestinal, as well as other pathologies. ER treatment provided: See below Diagnostics interpreted by me: ECG: EKG was obtained in the emergency department. My interpretation is sinus bradycardia at 51 bpm. Anterior T wave versions were noted. There was no ectopy. This was compared to a tracing from February 28, 2024. No changes were noted. Cardiac Monitoring: An order was placed for continuous cardiac monitoring. The monitor shows a rate of 60 bpm with sinus rhythm. Laboratory studies: As stated above and show below. Imaging studies: See below. Radiographic imaging was reviewed by myself Consultation(s): I discussed this case with Dr. Olivarez who is on-call for the [facility].\\ Past Med/Surg History Problem List (Updated 10/12/24 @ 20:45 by Sarath Hyatt DO) Cough with hemoptysis (Acute) Pneumonia (Acute) Upper GI bleed Elevated glucose Stage 3b chronic kidney disease Need for antibiotic prophylaxis for dental procedure Secondary to pulmonary AVM CKD (chronic kidney disease) Pulmonary arteriovenous malformation CRF (chronic renal failure) (Acute) Acute UTI (Acute) Thrombocytopenia (Acute) Anemia (Acute) Stroke-like symptoms Thrombocytopenia Mild cognitive impairment GERD (gastroesophageal reflux disease) Hypothyroidism Vitamin D deficiency Macular degeneration Cirrhosis VILLAGOMEZ Portal hypertension (Acute) Incarcerated hernia (Acute) Normocytic anemia Umbilical hernia Medical History Stone in renal pelvis Dog bite of right hand with infection Hearing deficit Hx of intestinal obstruction History of kidney injury Hypertension History of COVID-19 08/2020 RESOVED Hypothyroidism Right ureteral calculus Mitral valve prolapse Dx 40+ years ago, "no issues" per pt ECHO 01/05/22- showed mild posterior MVP; mitral stenosis absent, mild MR (jet is posteriorly directed) Esophageal varices Per records, pt denies 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 Anemia Has been working with PCP and heme/onc per records- most recent Hgb improved to 11.7 Surgical History S/P hysterectomy S/P cystoscopy with ureteral stent placement History of esophagogastroduodenoscopy (EGD) Hx of colonoscopy Hx of lithotripsy History of foot surgery B/L- NEUROMA Hx of carpal tunnel repair B/L History of partial hysterectomy Hx of tubal ligation Family History Sister Colorectal cancer Mother Myocardial infarction Father Myocardial infarction Brother Myocardial infarction x2 Other Family history non-contributory No family history of adverse response to anesthesia Denies family history of Ovarian cancer Prostate cancer Breast cancer Social History Smoking Status: Never smoker Second Hand Exposure: No; Do You Dip or Chew Tobacco: No; Hx Alcohol Use: No Hx Substance Use: No Preferred Language: Belarusian Communication Ability: Effective Visual Impairment: Partially Limited Hearing Ability: Use of Hearing Aid Conversion Man Required: No Beliefs That Will Affect Care: None marital status: / Current Living Situation: Family Current Living Situation Comment: lives with her daughter and grandaughter current occupational status: 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 How many Children do You have: 2 Other Information That Helps Us Care for You: No Feels Safe at Home: Yes Safety Concerns: Feels Safe At This Time Diet: ideal protein Diet Comment: boost q morning w/ yougurt- attempts high protein caffeine: Yes (soda) during the past year weight has: remained stable Dental Care, Regularly: Yes Physical Activity Frequency: Daily Physical Activity Frequency Comment: helps w/ great grandchilden Seatbelt Use: always Do you think of yourself as: straight/heterosexual Gender Identity: Female Assistive Devices: Hearing Aid - Bilateral Allergies Allergies Allergy/AdvReac Type Severity Reaction Status Date / Time Sulfa (Sulfonamide Allergy Mild Rash Verified 10/12/24 17:16 Antibiotics) Home Meds Home Medications Medication Instructions Recorded Confirmed cholecalciferol (vitamin D3) 50 50 mcg PO QAM 01/03/22 10/12/24 mcg (2,000 unit) capsule (Vitamin D3) cranberry fruit concentrate 250 mg 250 mg PO BID 01/03/22 10/12/24 chewable tablet (Azo Cranberry) ferrous sulfate 325 mg (65 mg 325 mg PO QAM 01/03/22 10/12/24 iron) tablet (iron) ascorbic acid (vitamin C) 500 mg 500 mg PO QAM 02/24/23 10/12/24 capsule calcium 315 mg (as 1 tab PO BID 02/24/23 10/12/24 citrate)-vitamin D3 6.25 mcg (250 unit) tablet (Citracal + Vitamin D Maximum) famotidine 40 mg tablet 40 mg PO QAM 02/24/23 10/12/24 lifitegrast 5 % eye drops in a 1 drp ophthalmic (eye) BID 02/24/23 10/12/24 dropperette (Xiidra) aspirin 81 mg tablet,delayed 81 mg PO DAILY 09/01/23 10/12/24 release Saccharomyces boulardii 10 billion 10 cell PO QAM 12/08/23 10/12/24 cell capsule multivitamin with iron 1 tab PO DAILY 12/08/23 10/12/24 vitamin A-vitamin C-vit E-min 1 tab PO QAM 12/08/23 10/12/24 tablet Previous Rx's Medication Instructions Recorded atorvastatin 40 mg tablet 40 mg PO HS #30 tabs 02/29/24 pantoprazole 40 mg tablet,delayed 40 mg PO DAILY #21 tabs 02/29/24 release gabapentin 100 mg capsule 200 mg (2 x 100 mg) PO HS #180 caps 05/07/24 furosemide 40 mg tablet 40 mg PO QAM #90 tabs 05/08/24 nadolol 20 mg tablet 20 mg PO QAM #90 tabs 05/14/24 spironolactone 25 mg tablet 25 mg PO QAM #90 tabs 07/11/24 levothyroxine 75 mcg tablet 75 mcg PO DAILYBB #90 tabs 10/09/24 Results & Data (ED) Vital Signs Vital Signs - 24 hr 10/12/24 14:14 10/12/24 16:07 10/12/24 16:07 Temperature 36.4 C L Temperature Source Oral Pulse Rate 54 L 60 Pulse Rate [Apical] 60 Pulse Rhythm Regular Pulse Rhythm [Apical] Regular Respiratory Rate 18 16 14 Respiratory Effort / Characteristics Non-Labored Spontaneous Non-Labored Spontaneous Respiratory Depth Normal Normal Respiratory Pattern Regular Blood Pressure 120/68 Blood Pressure [Right Arm] 124/60 Blood Pressure Mean 85 Blood Pressure Mean [Right Arm] 81 Blood Pressure Position [Right Arm] Lying Pulse Oximetry 96 98 98 Oxygen Delivery Method Room Air Room Air Room Air Sepsis Recent Fever Within 48 Hours No Sepsis New/Unexplained Change in Mental Status N/A Sepsis Action Taken by Nursing No Action Required 10/12/24 16:18 10/12/24 16:26 Temperature Temperature Source Pulse Rate 56 L Pulse Rate [Apical] 52 L Pulse Rhythm Pulse Rhythm [Apical] Respiratory Rate 15 Respiratory Effort / Characteristics Non-Labored Spontaneous Respiratory Depth Normal Respiratory Pattern Blood Pressure Blood Pressure [Right Arm] 124/60 Blood Pressure Mean Blood Pressure Mean [Right Arm] 81 Blood Pressure Position [Right Arm] Pulse Oximetry 99 Oxygen Delivery Method Room Air Sepsis Recent Fever Within 48 Hours Sepsis New/Unexplained Change in Mental Status Sepsis Action Taken by [facility] Medications Current Medication List: was personally reviewed by me Laboratory Data Attestation: I reviewed the patient's lab results. 10/12/24 14:22 10/12/24 14:22 Lab Results 10/12/24 10/12/24 10/12/24 Range/Units 14:22 14:31 16:20 WBC 6.73 (4.8-10.8) K/ul RBC 3.39 L (4.20-5.40) M/uL Hgb 11.3 L (12.0-16.0) g/dl Hct 33.0 L (37.0-47.0) % MCV 97.3 (80.0-100.0) fL MCH 33.3 (25.0-34.0) pg MCHC 34.2 (32.0-36.0) g/dL RDW Std Deviation 50.8 H (36.4-46.3) fL RDW Coeff of Bob 14.1 (11.5-14.5) % Plt Count 151 (130-400) K/uL MPV 10.5 (9.4-12.4) fL PT 12.3 H (9.0-12.0) Seconds INR 1.1 (0.9-1.1) APTT 33 H (21-31) Seconds PTT Ratio 1.2 Sodium 134 L (136-145) mmol/L Potassium 4.2 (3.5-5.1) mmol/L Chloride 105 (98-107) mmol/L Carbon Dioxide 23 (21-32) mmol/L Anion Gap 6 (3-11) BUN 49 H (6-23) mg/dl Creatinine 1.39 H (0.6-1.2) mg/dl Est Cr Clr Drug Dosing 23.5 ml/min eGFR 37.89 BUN/Creatinine Ratio 35.3 H (10-20) Glucose 112 H (70-99(Fasting)) mg/dl Calcium 8.5 L (8.6-10.3) mg/dl Total Bilirubin 0.9 (0.2-1.0) mg/dl AST 60 H (13-39) U/L ALT 52 (7-52) U/L Alkaline Phosphatase 362 H (34-104) U/L Troponin I High Sens 10.5 (0-14) pg/ml C-Reactive Protein 13.09 H (0-0.5) mg/dl Total Protein 7.2 (6.0-8.3) gm/dl Albumin 2.9 L (3.4-5.0) gm/dl Globulin 4.3 H (2.5-4.0) gm/dl Albumin/Globulin Ratio 0.7 L (0.9-2) Procalcitonin 0.64 H (0-0.5) ng/ml SARS-CoV-2 (PCR) NEGATIVE (Negative) Influenza Type A (PCR) Negative (Neg) Influenza Type B (PCR) Negative (Neg) RSV (RT-PCR) Negative (Neg) Blood Type A Positive Antibody Screen NEGATIVE Administered Medications Pantoprazole Sodium 40 mg/ (Dextrose) 100 mls @ 20 mls/hr IV Q5H KEVIN Stop: 11/11/24 17:29 Last Admin: 10/12/24 18:14 Dose: 8 mg/hr, 20 mls/hr Documented By: KARAN Octreotide Acetate 500 mcg/ (Sodium Chloride) 100.5 mls @ 10.05 mls/hr IV .Q10H KEVIN Stop: 11/11/24 17:14 Last Admin: 10/12/24 18:45 Dose: 50 mcg/hr, 10.1 mls/hr Documented By: ANITRA Discontinued Medications Pantoprazole Sodium (Protonix) 40 mg in 10 mls @ 5 mls/min IV NOW ONE Stop: 10/12/24 15:51 Last Admin: 10/12/24 16:15 Dose: 5 mls/min Documented By: CARY Piperacillin Sod/Tazobactam Sod (Zosyn) 4.5 gm in 100 mls @ 200 mls/hr IV NOW ONE; Protocol Stop: 10/12/24 16:54 Last Infusion: 10/12/24 19:01 Dose: Infused Documented By: Admin: 10/12/24 17:07 Dose: 200 mls/hr Documented By: KARAN Pantoprazole Sodium (Protonix) 40 mg in 10 mls @ 5 mls/min IV NOW ONE Stop: 10/12/24 17:12 Last Admin: 10/12/24 18:06 Dose: 5 mls/min Documented By: KARAN Octreotide Acetate 50 mcg/ (Syringe) 10 mls @ 3 mls/min IV ONE STA Stop: 10/12/24 17:14 Last Admin: 10/12/24 18:11 Dose: 3 mls/min Documented By: KARAN Ioversol (Optiray 320 125ml) 115 ml IV ONCE ONE Stop: 10/12/24 16:11 Last Admin: 10/12/24 16:11 Dose: 115 ml Documented By: JAYDEN Imaging Data Attestation: I personally reviewed and interpreted this imaging study as follows: My Impression: CT the of the chest abdomen pelvis were obtained in the emergency department. My interpretation is bilateral infiltrates, no free air, no definite bowel obstruction, final reports below. Radiologist's Impression: Abdomen/Pelvis CT 10/12/24 15:50 Technique: Axial computed tomography images were obtained of the abdomen and pelvis after the administration of intravenous and oral contrast. Comparison is made to the prior CT dated 11/15/2022. Findings: As before, the liver is shrunken and nodular in contour, consistent with cirrhosis. There are esophageal varices. No liver mass lesion is seen. The portal vein is patent. The gallbladder appears unremarkable. No bile duct dilatation is noted. The spleen is of normal size. No focal splenic lesion is evident. There are 2 suspected small cysts in the pancreatic body, measuring 7 mm and 6 mm. There is also a suspected 7 mm cyst in the pancreatic body. The pancreas otherwise appears normal with no sign of acute or chronic pancreatitis and no mass lesion noted. The pancreatic duct is of normal caliber. The adrenal glands appear unremarkable. No definite renal or proximal ureteral calculi are seen on this contrast-enhanced study. There is no hydronephrosis or perinephric stranding. No renal mass lesion is identified. The right ureteral stent seen before has been removed. There is multifocal renal cortical scarring bilaterally. There is a small 8 mm right renal cyst as well as a 2 mm right renal cyst. The abdominal aorta is of normal caliber. There are small subcentimeter retroperitoneal para-aortic lymph nodes. No overt abdominal adenopathy is seen. A moderate to large hiatal hernia is again seen. There is no sign of small bowel obstruction. There is sigmoid diverticulosis without definite diverticulitis. There is apparent mild wall thickening of the cecum. No free intraperitoneal air is identified. There is a small amount of free pelvic fluid No distal ureteral or bladder calculi are seen. No bladder mass lesion is evident. The iliac arteries are of normal caliber. No pelvic adenopathy is noted. There is a 2.2 cm right ovarian cyst, which appears increased in size. The uterus has been removed. There is an unchanged old L3 compression fracture. No focal osseous lesion is seen Impression: 1. Unchanged advanced cirrhosis and portal hypertension 2. Small amount of ascites 3. Bilateral renal cortical atrophy and small right renal cysts 4. Apparent small pancreatic cysts, likely benign congenital or post inflammatory cysts 5. Hiatal hernia 6. Apparent wall thickening of the cecum, which could be due to infectious colitis or inflammatory bowel disease. Colon carcinoma cannot be excluded. 7. 2.2 cm right ovarian cyst, indeterminate in nature in this postmenopausal patient. A follow-up pelvic ultrasound could be obtained 8. Diverticulosis without definite diverticulitis ACT 112: Positive. There are findings on this exam that require communication between the performing entity and the patient following Patient Test Result Information Act ([place] ACT 112) guidelines. Electronically signed by John Schaefer 10-12-2024 4:34 PM Chest CTA 10/12/24 15:50 Technique: Axial computed tomography images were obtained of the chest after the administration of intravenous contrast according to the CT angiogram protocol Comparison is made to the prior CT dated 04/03/2024 Findings: There is no definite sign of pulmonary embolism. There is multifocal alveolar consolidation bilaterally. There is no pleural effusion or pneumothorax. There is no sign of pulmonary fibrosis or other diffuse interstitial process. No endobronchial lesion is seen There is no mediastinal, hilar, or axillary adenopathy. The thoracic aorta appears unremarkable with no sign of aneurysm or dissection. There is no pericardial effusion. There is coronary atherosclerosis There is mild diffuse esophageal dilatation No fracture is seen. No focal osseous lesion is evident Impression: 1. No definite sign of pulmonary embolism 2. Bilateral pneumonia 3. Mild esophageal dilatation that could be due to dysmotility or reflux 4. Coronary atherosclerosis ACT 112: Positive. There are findings on this exam that require communication between the performing entity and the patient following Patient Test Result Information Act ([place] ACT 112) guidelines. Electronically signed by John Schaefer 10-12-2024 4:37 PM Discharge Plan Visit Data Chief Complaint: GI Bleed Stated Complaint: COUGHING UP BLOOD ED Provider: Sarath Hyatt Discharge Problem: Pneumonia, Cough with hemoptysis Patient Disposition: Admitted As Inpatient Discharge Instructions Interventions: ED Discharge Assessment Last Done: 10/12/24 18:23
[2024-10-12] MEDS: OPTIRAY 320 125ml IV ONE (16:11)
[2024-10-12] MEDS: PANTOprazole 40 MG/10 ML SYR IV ONE ×2 (16:15→18:06)
--- NOTE | 2024-10-12 16:34 | CT Scan Report ---
Technique: Axial computed tomography images were obtained of the abdomen and pelvis after the administration of intravenous and oral contrast. Comparison is made to the prior CT dated 11/15/2022. Findings: As before, the liver is shrunken and nodular in contour, consistent with cirrhosis. There are esophageal varices. No liver mass lesion is seen. The portal vein is patent. The gallbladder appears unremarkable. No bile duct dilatation is noted. The spleen is of normal size. No focal splenic lesion is evident. There are 2 suspected small cysts in the pancreatic body, measuring 7 mm and 6 mm. There is also a suspected 7 mm cyst in the pancreatic body. The pancreas otherwise appears normal with no sign of acute or chronic pancreatitis and no mass lesion noted. The pancreatic duct is of normal caliber. The adrenal glands appear unremarkable. No definite renal or proximal ureteral calculi are seen on this contrast-enhanced study. There is no hydronephrosis or perinephric stranding. No renal mass lesion is identified. The right ureteral stent seen before has been removed. There is multifocal renal cortical scarring bilaterally. There is a small 8 mm right renal cyst as well as a 2 mm right renal cyst. The abdominal aorta is of normal caliber. There are small subcentimeter retroperitoneal para-aortic lymph nodes. No overt abdominal adenopathy is seen. A moderate to large hiatal hernia is again seen. There is no sign of small bowel obstruction. There is sigmoid diverticulosis without definite diverticulitis. There is apparent mild wall thickening of the cecum. No free intraperitoneal air is identified. There is a small amount of free pelvic fluid No distal ureteral or bladder calculi are seen. No bladder mass lesion is evident. The iliac arteries are of normal caliber. No pelvic adenopathy is noted. There is a 2.2 cm right ovarian cyst, which appears increased in size. The uterus has been removed. There is an unchanged old L3 compression fracture. No focal osseous lesion is seen Impression: 1. Unchanged advanced cirrhosis and portal hypertension 2. Small amount of ascites 3. Bilateral renal cortical atrophy and small right renal cysts 4. Apparent small pancreatic cysts, likely benign congenital or post inflammatory cysts 5. Hiatal hernia 6. Apparent wall thickening of the cecum, which could be due to infectious colitis or inflammatory bowel disease. Colon carcinoma cannot be excluded. 7. 2.2 cm right ovarian cyst, indeterminate in nature in this postmenopausal patient. A follow-up pelvic ultrasound could be obtained 8. Diverticulosis without definite diverticulitis ACT 112: Positive. There are findings on this exam that require communication between the performing entity and the patient following Patient Test Result Information Act ([place] ACT 112) guidelines. Electronically signed by John Schaefer 10-12-2024 4:34 PM
--- NOTE | 2024-10-12 16:38 | CT Scan Report ---
Technique: Axial computed tomography images were obtained of the chest after the administration of intravenous contrast according to the CT angiogram protocol Comparison is made to the prior CT dated 04/03/2024 Findings: There is no definite sign of pulmonary embolism. There is multifocal alveolar consolidation bilaterally. There is no pleural effusion or pneumothorax. There is no sign of pulmonary fibrosis or other diffuse interstitial process. No endobronchial lesion is seen There is no mediastinal, hilar, or axillary adenopathy. The thoracic aorta appears unremarkable with no sign of aneurysm or dissection. There is no pericardial effusion. There is coronary atherosclerosis There is mild diffuse esophageal dilatation No fracture is seen. No focal osseous lesion is evident Impression: 1. No definite sign of pulmonary embolism 2. Bilateral pneumonia 3. Mild esophageal dilatation that could be due to dysmotility or reflux 4. Coronary atherosclerosis ACT 112: Positive. There are findings on this exam that require communication between the performing entity and the patient following Patient Test Result Information Act ([place] ACT 112) guidelines. Electronically signed by John Schaefer 10-12-2024 4:37 PM
[2024-10-12 16:46] LABS: C Reactive Protein 13.09 mg/dl (0-0.5)
[2024-10-12] MEDS: PIPERACILLIN/TAZOBACTAM 4.5 GM/100 ML BAG IV ONE (17:07)
[2024-10-12] MEDS ORDERED: STAT IV/IM STA (17:11)
--- NOTE | 2024-10-12 17:17 | History & Physical Report ---
Date of Service October 12, 2024 Assessment & Plan (1) Upper GI bleed: Plan 84-year-old female with liver cirrhosis and known varices presents to the ER with hemoptysis #Bilateral pneumonia Cepheid PCR test negative Continue intravenous Zosyn and add azithromycin Avoid flutter valve initially due to hemoptysis #Hemoptysis Known history of pulmonary AVM, monitor overnight, if persistent will consult pulmonology tomorrow, discussed with Dr. Barrios over the phone on admission Most likely from pneumonia with coughing vs. bleeding esophageal varices as below Will consider guaifenesin and including cough syrup if hemoglobin stable ove rnight and can start on diet #Possible gastrointestinal bleed with known esophageal varices and esophageal dilatation on CT / chronic dysphagia /VILLAGOMEZ liver cirrhosis Possible she is having esophageal bleed and coughing of the blood from this although no melena noted however pneumonia does not explain her epigastric pain Given her liver cirrhosis and known esophageal varices out of abundance of precaution we will start treatment with pantoprazole and octreotide. Antibiotics as above. Continue her usual outpatient famotidine but switch to IV Fecal occult blood NPO, gentle IV fluids H&H q.6 hourly, transfuse less than 8 Consult gastroenterology #Epigastric pain on exam Possible gastritis with gastrointestinal bleed. However given no melena we will also get an ultrasound to assess for portal vein thrombosis. #Abnormal CTAP /wall thickening of cecum /2.2 cm right ovarian cyst This findings can be followed up as an outpatient if desired #Bradycardia sinus, monitor on telemetry, secondary to nadalol use, currently on hold due to NPO status VTE prophylaxis - chemical contraindicated, SCDs Diet - NPO Disposition - admit to PCU Admission and Anticipated Discharge Date Admission Date: October 12, 2024 History of Present Illness Chief Complaint: Hemoptysis Primary Care Provider: NICOLÁS Gibson Cristina mares is an 84-year-old female with liver cirrhosis and known esophageal varices who presents to the ER with hemoptysis and epigastric pain. She reports 1 to 2 weeks of a productive cough which she has not taken any medications for. Today she woke up at 7:30 AM and coughed up a clot of blood, since then it has been more like specks with her sputum. She denies any melena and reports having normal bowel movements up until large bowel movement following oral contrast given in the emergency room. She denies any fever, chills, nausea, vomiting c hest pain or shortness of breath. She has known dysphagia to large pills which is no worse than usual. She has chronically poor appetite mainly eating yogurts and drinking boost drinks. She is under gastroenterology and hepatology at [facility]. Reviewed note from June 2023 - noted prior endoscopy and April 2022 with large esophageal varices and patient started on nadolol at that time. The patient denies any prior esophageal bleeding. Allergies Allergy/AdvReac Type Severity Reaction Status Date / Time Sulfa (Sulfonamide Allergy Mild Rash Verified 10/12/24 17:16 Antibiotics) Home Medications Medication Instructions Recorded Confirmed Type cholecalciferol (vitamin D3) 50 50 mcg PO QAM 01/03/22 10/12/24 History mcg (2,000 unit) capsule (Vitamin D3) cranberry fruit concentrate 250 mg 250 mg PO BID 01/03/22 10/12/24 History chewable tablet (Azo Cranberry) ferrous sulfate 325 mg (65 mg 325 mg PO QAM 01/03/22 10/12/24 History iron) tablet (iron) ascorbic acid (vitamin C) 500 mg 500 mg PO QAM 02/24/23 10/12/24 History capsule calcium 315 mg (as 1 tab PO BID 02/24/23 10/12/24 History citrate)-vitamin D3 6.25 mcg (250 unit) tablet (Citracal + Vitamin D Maximum) famotidine 40 mg tablet 40 mg PO QAM 02/24/23 10/12/24 History lifitegrast 5 % eye drops in a 1 drp ophthalmic (eye) BID 02/24/23 10/12/24 History dropperette (Xiidra) aspirin 81 mg tablet,delayed 81 mg PO DAILY 09/01/23 10/12/24 History release Saccharomyces boulardii 10 billion 10 cell PO QAM 12/08/23 10/12/24 History cell capsule multivitamin with iron 1 tab PO DAILY 12/08/23 10/12/24 History vitamin A-vitamin C-vit E-min 1 tab PO QAM 12/08/23 10/12/24 History tablet atorvastatin 40 mg tablet 40 mg PO HS #30 tabs 02/29/24 10/12/24 Rx pantoprazole 40 mg tablet,delayed 40 mg PO DAILY #21 tabs 02/29/24 10/12/24 Rx release gabapentin 100 mg capsule 200 mg (2 x 100 mg) PO HS #180 caps 05/07/24 10/12/24 Rx furosemide 40 mg tablet 40 mg PO QAM #90 tabs 05/08/24 10/12/24 Rx nadolol 20 mg tablet 20 mg PO QAM #90 tabs 05/14/24 10/12/24 Rx spironolactone 25 mg tablet 25 mg PO QAM #90 tabs 07/11/24 10/12/24 Rx levothyroxine 75 mcg tablet 75 mcg PO DAILYBB #90 tabs 10/09/24 10/12/24 Rx Past Med/Surg History Problem List (Updated 10/12/24 @ 17:46 by Joey Olivarez MD) Upper GI bleed Elevated glucose Stage 3b chronic kidney disease Need for antibiotic prophylaxis for dental procedure Secondary to pulmonary AVM CKD (chronic kidney disease) Pulmonary arteriovenous malformation CRF (chronic renal failure) (Acute) Acute UTI (Acute) Thrombocytopenia (Acute) Anemia (Acute) Stroke-like symptoms Thrombocytopenia Mild cognitive impairment GERD (gastroesophageal reflux disease) Hypothyroidism Vitamin D deficiency Macular degeneration Cirrhosis VILLAGOMEZ Portal hypertension (Acute) Incarcerated hernia (Acute) Normocytic anemia Umbilical hernia Medical History Stone in renal pelvis Dog bite of right hand with infection Hearing deficit Hx of intestinal obstruction History of kidney injury Hypertension History of COVID-19 08/2020 RESOVED Hypothyroidism Right ureteral calculus Mitral valve prolapse Dx 40+ years ago, "no issues" per pt ECHO 01/05/22- showed mild posterior MVP; mitral stenosis absent, mild MR (jet is posteriorly directed) Esophageal varices Per records, pt denies 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 Anemia Has been working with PCP and heme/onc per records- most recent Hgb improved to 11.7 Surgical History S/P hysterectomy S/P cystoscopy with ureteral stent placement History of esophagogastroduodenoscopy (EGD) Hx of colonoscopy Hx of lithotripsy History of foot surgery B/L- NEUROMA Hx of carpal tunnel repair B/L History of partial hysterectomy Hx of tubal ligation Family History Sister Colorectal cancer Mother Myocardial infarction Father Myocardial infarction Brother Myocardial infarction x2 Other Family history non-contributory No family history of adverse response to anesthesia Denies family history of Ovarian cancer Prostate cancer Breast cancer Social History Smoking Status: Never smoker Second Hand Exposure: No; Do You Dip or Chew Tobacco: No; Hx Alcohol Use: No Hx Substance Use: No Preferred Language: Croatian Communication Ability: Effective Visual Impairment: Partially Limited Hearing Ability: Use of Hearing Aid Collar Separator Required: No Beliefs That Will Affect Care: None marital status: / Current Living Situation: Family Current Living Situation Comment: lives with her daughter and grandaughter current occupational status: retired 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 How many Children do You have: 2 Feels Safe at Home: Yes Diet: ideal protein Diet Comment: boost q morning w/ yougurt- attempts high protein caffeine: Yes (soda) during the past year weight has: remained stable Dental Care, Regularly: Yes Physical Activity Frequency: Daily Physical Activity Frequency Comment: helps w/ great grandchilden Seatbelt Use: always Do you think of yourself as: straight/heterosexual Gender Identity: Female Assistive Devices: None Review of Systems Review of Systems: All systems reviewed & are unremarkable except as noted in HPI & below Physical Exam Constitutional: WD/WN, vitals as above ENMT: external ear and nose normal, oropharynx normal Respiratory: normal respiratory effort, lungs clear to auscultation Cardiovascular: RRR, no murmur, no edema Gastrointestinal (Abdomen): Percussion/Palpation: + abdomen tender (epigastric) and abdomen soft; no guarding and abdomen not rigid Skin: no rashes, warm and dry Neurologic: moves all extremities and awake; not confused Psychiatric: A+Ox3, euthymic affect Results & Data Results & Data Vital Signs (Past 12 Hours) Vital Signs Temp Pulse Pulse Resp BP BP Pulse Ox 10/12/24 16:26 56 L 10/12/24 16:18 52 L 15 124/60 99 10/12/24 16:07 60 14 98 10/12/24 16:07 60 16 124/60 98 10/12/24 14:14 36.4 C L 54 L 18 120/68 96 O2 Del Method 10/12/24 16:26 10/12/24 16:18 Room Air 10/12/24 16:07 Room Air 10/12/24 16:07 Room Air 10/12/24 14:14 Room Air Laboratory Results Abnormal lab results 10/12/24 Range/Units 14:22 RBC 3.39 L (4.20-5.40) M/uL Hgb 11.3 L (12.0-16.0) g/dl Hct 33.0 L (37.0-47.0) % RDW Std Deviation 50.8 H (36.4-46.3) fL PT 12.3 H (9.0-12.0) Seconds APTT 33 H (21-31) Seconds Sodium 134 L (136-145) mmol/L BUN 49 H (6-23) mg/dl Creatinine 1.39 H (0.6-1.2) mg/dl BUN/Creatinine Ratio 35.3 H (10-20) Glucose 112 H (70-99(Fasting)) mg/dl Calcium 8.5 L (8.6-10.3) mg/dl AST 60 H (13-39) U/L Alkaline Phosphatase 362 H (34-104) U/L C-Reactive Protein 13.09 H (0-0.5) mg/dl Albumin 2.9 L (3.4-5.0) gm/dl Globulin 4.3 H (2.5-4.0) gm/dl Albumin/Globulin Ratio 0.7 L (0.9-2) Diagnostic Findings CT chest angiogram Technique: Axial computed tomography images were obtained of the chest after the administration of intravenous contrast according to the CT angiogram protocol Comparison is made to the prior CT dated 04/03/2024 Findings: There is no definite sign of pulmonary embolism. There is multifocal alveolar consolidation bilaterally. There is no pleural effusion or pneumothorax. There is no sign of pulmonary fibrosis or other diffuse interstitial process. No endobronchial lesion is seen There is no mediastinal, hilar, or axillary adenopathy. The thoracic aorta appears unremarkable with no sign of aneurysm or dissection. There is no pericardial effusion. There is coronary atherosclerosis There is mild diffuse esophageal dilatation No fracture is seen. No focal osseous lesion is evident Impression: 1. No definite sign of pulmonary embolism 2. Bilateral pneumonia 3. Mild esophageal dilatation that could be due to dysmotility or reflux 4. Coronary atherosclerosis CT abdomen pelvis with IV and oral contrast Technique: Axial computed tomography images were obtained of the abdomen and pelvis after the administration of intravenous and oral contrast. Comparison is made to the prior CT dated 11/15/2022. Findings: As before, the liver is shrunken and nodular in contour, consistent with cirrhosis. There are esophageal varices. No liver mass lesion is seen. The portal vein is patent. The gallbladder appears unremarkable. No bile duct dilatation is noted. The spleen is of normal size. No focal splenic lesion is evident. There are 2 suspected small cysts in the pancreatic body, measuring 7 mm and 6 mm. There is also a suspected 7 mm cyst in the pancreatic body. The pancreas otherwise appears normal with no sign of acute or chronic pancreatitis and no mass lesion noted. The pancreatic duct is of normal caliber. The adrenal glands appear unremarkable. No definite renal or proximal ureteral calculi are seen on this contrast- enhanced study. There is no hydronephrosis or perinephric stranding. No renal mass lesion is identified. The right ureteral stent seen before has been removed. There is multifocal renal cortical scarring bilaterally. There is a small 8 mm right renal cyst as well as a 2 mm right renal cyst. The abdominal aorta is of normal caliber. There are small subcentimeter retroperitoneal para-aortic lymph nodes. No overt abdominal adenopathy is seen. A moderate to large hiatal hernia is again seen. There is no sign of small bowel obstruction. There is sigmoid diverticulosis without definite diverticulitis. There is apparent mild wall thickening of the cecum. No free intraperitoneal air is identified. There is a small amount of free pelvic fluid. No distal ureteral or bladder calculi are seen. No bladder mass lesion is evident. The iliac arteries are of normal caliber. No pelvic adenopathy is noted. There is a 2.2 cm right ovarian cyst, which appears increased in size. The uterus has been removed. There is an unchanged old L3 compression fracture. No focal osseous lesion is seen Impression: 1. Unchanged advanced cirrhosis and portal hypertension 2. Small amount of ascites 3. Bilateral renal cortical atrophy and small right renal cysts 4. Apparent small pancreatic cysts, likely benign congenital or post inflammatory cysts 5. Hiatal hernia 6. Apparent wall thickening of the cecum, which could be due to infectious colitis or inflammatory bowel disease. Colon carcinoma cannot be excluded. 7. 2.2 cm right ovarian cyst, indeterminate in nature in this postmenopausal patient. A follow-up pelvic ultrasound could be obtained 8. Diverticulosis without definite diverticulitis Medications Administered ER medications given: Pantoprazole 40 mg IV Zosyn 4.5 g IV ECG Rate (beats per minute): 51 Rhythm: sinus bradycardia Findings: + other (Low voltage QRS); no acute ischemic change Comparison ECG Date: from (February 28, 2024) Change: no significant change Code Status & VTE Plan Code Status DNR/DNI VTE Prophylaxis Plan VTE Prophylaxis will be ordered: Yes PG Care Time/CCT Total # of Minutes Spent Total Time Spent with Patient: Total time spent is greater than 50% in coordination of care (as documented) at patient's floor/unit and/or counseling patient: Coding Level of Care Code 56216 INT INP/OBS CARE 3/75MIN Diagnoses Upper GI bleed K92.2
[2024-10-12 17:20] LABS: Influenza A virus by PCR Negative (Neg); Influenza B virus by PCR Negative (Neg); RSV by PCR Negative (Neg); SARS CoV2 RNA(COVID-19) Ceph NEGATIVE (Negative)
[2024-10-12] MEDS: OCTREOTIDE ACETATE 50 MCG in SYRINGE 9.5 ML IV STA (18:11)
[2024-10-12] MEDS: PANTOprazole 40 MG in DEXTROSE 5% MINI-B 100 ML IV SCH (18:14)
[2024-10-12] MEDS: OCTREOTIDE ACETATE 500 MCG in SODIUM CHLORIDE 0.9% 100 ML IV SCH (18:45)
[2024-10-12] MEDS: LACTATED RINGER'S 1,000 ML IV SCH (20:46)
[2024-10-12] MEDS: AZITHROMYCIN 500 MG/255 ML BAG IV SCH (20:47)
[2024-10-12] MEDS: FAMOTIDINE 20MG IV PUSH 20 MG/5 ML SYR IV SCH (20:47)
--- NOTE | 2024-10-12 20:49 | Electrocardiogram Report ---
Test Reason : Blood Pressure : */* mmHG Vent. Rate : 51 BPM Atrial Rate : 51 BPM P-R Int : 190 ms QRS Dur : 72 ms QT Int : 514 ms P-R-T Axes : -2 -26 0 degrees QTcB Int : 473 ms Sinus bradycardia Low voltage QRS possible Inferior infarct , age undetermined Poor R wave progression, consider anterior RI vs. lead placement vs. LVH Abnormal ECG When compared with ECG of 28-Feb-2024 14:32, No significant change was found Confirmed by Mike See ([id number]) on 10/12/2024 8:49:18 PM Referred By: Confirmed By: Mike See
[2024-10-12 20:54] LABS: Hematocrit (blood only) 31.8 % (37.0-47.0); Hemoglobin 10.9 g/dl (12.0-16.0)
[2024-10-12] MEDS: PIPERACILLIN/TAZOBACTAM 4.5 GM/100 ML BAG IV SCH (22:47)
[2024-10-13 01:21] LABS: Hematocrit (blood only) 29.6 % (37.0-47.0); Hemoglobin 10.1 g/dl (12.0-16.0)
--- NOTE | 2024-10-13 04:40 | Ultrasound Report ---
Exam(s): US OTHER US duplex portal hepatic EXAM: US Duplex Arterial/Venous of the Abdomen, Complete CLINICAL HISTORY: Reason for exam: epigastric pain. TECHNIQUE: Real-time duplex ultrasound scan of the abdomen integrating B-mode two- dimensional vascular structure, Doppler spectral analysis and color flow Doppler imaging. COMPARISON: None. FINDINGS: Liver appears very heterogeneous and nodular, suggestive of chronic parenchymal disease/cirrhosis. Portal veins: Summer-splenic confluence appears patent. Left and right portal veins: Normal hepatopetal flow on color and spectral Doppler imaging. Hepatic artery: Patent. Hepatic veins: Patent. Normal flow on color and spectral Doppler imaging. Velocity: 18 cm/s. Splenic vein: Unremarkable. Normal flow on color and spectral Doppler imaging. Other findings: Right pleural effusion noted. . IMPRESSION: Coarsened/echogenic liver parenchyma, consistent with chronic disease/cirrhosis. Unremarkable duplex ultrasound scan of the abdomen. Right pleural effusion. . Electronically signed by: Joon Quinonez MD, JANET 10/13/24 04:39 AM
[2024-10-13 07:03] LABS: Basophils # (auto) 0.02 K/uL (0.00-0.20); Basophils % (auto) 0.5 %; Eosinophils # (auto) 0.12 K/uL (0.00-0.50); Eosinophils % (auto) 2.8 %; Hematocrit (blood only) 28.9 % (37.0-47.0); Hemoglobin 9.7 g/dl (12.0-16.0); Immature Granulocytes # (auto) 0.01 K/uL (0.01-0.20); Immature Granulocytes % (auto) 0.2 %; Lymphocytes # (auto) 1.15 K/uL (1.20-3.40); Mean Corpuscular Hemoglobin 32.4 pg (25.0-34.0); Mean Corpuscular Hgb Conc 33.6 g/dL (32.0-36.0); Mean Corpuscular Volume 96.7 fL (80.0-100.0); Mean Platelet Volume 10.1 fL (9.4-12.4); Monocytes # (auto) 0.84 K/uL (0.11-0.59); Monocytes % (auto) 19.7 %; Neutrophils # (auto) 2.12 K/uL (1.40-6.50); Neutrophils % (auto) 49.8 %; Platelet Count 106 K/uL (130-400); RDW Coefficient of Variation 14.2 % (11.5-14.5); RDW Standard Deviation 50.5 fL (36.4-46.3); Red Blood Count 2.99 M/uL (4.20-5.40); White Blood Count 4.26 K/ul (4.8-10.8)
[2024-10-13 07:17] LABS: INR 1.2 (0.9-1.1)
[2024-10-13 07:50] LABS: Albumin Globulin Ratio 0.7 (0.9-2); Albumin Level 2.4 gm/dl (3.4-5.0); BUN Creatinine Ratio 28.5 (10-20); Bilirubin,Total 0.8 mg/dl (0.2-1.0); Calcium 7.8 mg/dl (8.6-10.3); Creatinine Clr Calc Pharmacy 22.7 ml/min; Globulin 3.4 gm/dl (2.5-4.0); Potassium 4.3 mmol/L (3.5-5.1); Total Protein 5.8 gm/dl (6.0-8.3)
--- NOTE | 2024-10-13 09:37 | Gastrointestinal Consultation ---
Date of Consultation October 13, 2024 Assessment & Plan (1) Cirrhosis: Pleasant woman with known liver disease and known varices admitted with hemoptysis and bilateral pneumonia by chest CT. By history she is NOT having hematemesis as she has not vomited at all. She does not have evidence of a GI bleed. She has brown stools that are heme (+) but if one is coughing up blood and swallowing then it will make stools occult blood positive. She does have "RUQ pain" but her rib cage is exquisitely tender and I suspect the pain is related to musculoskeletal issues related to the coughing. I don't see a need for urgent GI evaluation at this time but will follow while she is in the hospital to observe for changes. 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 Deutsch in [facility] GI office. She says she has been coughing for two to three weeks and the day prior to admit started coughing up blood. The first time there was a clot surrounded by mucus. She did that for "8 or 9 times" but hasn't done it any more. She is very insistent that she was coughing blood and she has not vomited at all. Her upper abdomen does hurt now but it hurts with movement and coughing. She has not had any melena or hematochezia. Her H/H have dropped since admit but it is in the range it has been for the last several years. Her stools are brown but hemoccult positive. She does have a history of varices and is on nadolol for that. She has not had an EGD in years. Allergies Allergy/AdvReac Type Severity Reaction Status Date / Time Sulfa (Sulfonamide Allergy Mild Rash Verified 10/12/24 17:16 Antibiotics) Home Medications Medication Instructions Recorded Confirmed Type cholecalciferol (vitamin D3) 50 50 mcg PO QAM 01/03/22 10/12/24 History mcg (2,000 unit) capsule (Vitamin D3) cranberry fruit concentrate 250 mg 250 mg PO BID 01/03/22 10/12/24 History chewable tablet (Azo Cranberry) ferrous sulfate 325 mg (65 mg 325 mg PO QAM 01/03/22 10/12/24 History iron) tablet (iron) ascorbic acid (vitamin C) 500 mg 500 mg PO QAM 02/24/23 10/12/24 History capsule calcium 315 mg (as 1 tab PO BID 02/24/23 10/12/24 History citrate)-vitamin D3 6.25 mcg (250 unit) tablet (Citracal + Vitamin D Maximum) famotidine 40 mg tablet 40 mg PO QAM 02/24/23 10/12/24 History lifitegrast 5 % eye drops in a 1 drp ophthalmic (eye) BID 02/24/23 10/12/24 History dropperette (Xiidra) aspirin 81 mg tablet,delayed 81 mg PO DAILY 09/01/23 10/12/24 History release Saccharomyces boulardii 10 billion 10 cell PO QAM 12/08/23 10/12/24 History cell capsule multivitamin with iron 1 tab PO DAILY 12/08/23 10/12/24 History vitamin A-vitamin C-vit E-min 1 tab PO QAM 12/08/23 10/12/24 History tablet atorvastatin 40 mg tablet 40 mg PO HS #30 tabs 02/29/24 10/12/24 Rx pantoprazole 40 mg tablet,delayed 40 mg PO DAILY #21 tabs 02/29/24 10/12/24 Rx release gabapentin 100 mg capsule 200 mg (2 x 100 mg) PO HS #180 caps 05/07/24 10/12/24 Rx furosemide 40 mg tablet 40 mg PO QAM #90 tabs 05/08/24 10/12/24 Rx nadolol 20 mg tablet 20 mg PO QAM #90 tabs 05/14/24 10/12/24 Rx spironolactone 25 mg tablet 25 mg PO QAM #90 tabs 07/11/24 10/12/24 Rx levothyroxine 75 mcg tablet 75 mcg PO DAILYBB #90 tabs 10/09/24 10/12/24 Rx Patient History Medical History Stone in renal pelvis Dog bite of right hand with infection Hearing deficit Hx of intestinal obstruction History of kidney injury Hypertension History of COVID-19 08/2020 RESOVED Hypothyroidism Right ureteral calculus Mitral valve prolapse Dx 40+ years ago, "no issues" per pt ECHO 01/05/22- showed mild posterior MVP; mitral stenosis absent, mild MR (jet is posteriorly directed) Esophageal varices Per records, pt denies 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 Anemia Has been working with PCP and heme/onc per records- most recent Hgb improved to 11.7 Surgical History S/P hysterectomy S/P cystoscopy with ureteral stent placement History of esophagogastroduodenoscopy (EGD) Hx of colonoscopy Hx of lithotripsy History of foot surgery B/L- NEUROMA Hx of carpal tunnel repair B/L History of partial hysterectomy Hx of tubal ligation Family History Sister Colorectal cancer Mother Myocardial infarction Father Myocardial infarction Brother Myocardial infarction x2 Other Family history non-contributory No family history of adverse response to anesthesia Denies family history of Ovarian cancer Prostate cancer Breast cancer Social History Smoking Status: Never smoker Second Hand Exposure: No; Do You Dip or Chew Tobacco: No; Hx Alcohol Use: No Hx Substance Use: No Preferred Language: [place]se Communication Ability: Effective Visual Impairment: Partially Limited Hearing Ability: Use of Hearing Aid Jumpbasting Machine Operator Required: No Beliefs That Will Affect Care: None marital status: / Current Living Situation: Family Current Living Situation Comment: lives with her daughter and grandaughter current occupational status: retired 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 How many Children do You have: 2 Other Information That Helps Us Care for You: No Feels Safe at Home: Yes Safety Concerns: Feels Safe At This Time Diet: ideal protein Diet Comment: boost q morning w/ yougurt- attempts high protein caffeine: Yes (soda) during the past year weight has: remained stable Dental Care, Regularly: Yes Physical Activity Frequency: Daily Physical Activity Frequency Comment: helps w/ great grandchilden Seatbelt Use: always Do you think of yourself as: straight/heterosexual Gender Identity: Female Assistive Devices: Hearing Aid - Bilateral Review of Systems Review of Systems: All systems reviewed & are unremarkable except as noted in HPI & below Physical Exam Physical Exam: Pleasant elderly lady in no distress Constitutional: WD/WN, vitals as above Neck: trachea midline, no thyromegaly Respiratory: normal respiratory effort, lungs clear to auscultation Cardiovascular: RRR, no murmur, no edema Gastrointestinal (Abdomen): Inspection/Auscultation: abdomen normal to inspection Percussion/Palpation: + abdomen tender (in the right lower chest wall with referred tenderness in right upper abdom) and abdomen soft; no abdominal mass Results & Data Vital Signs (Past 12 Hours) Vital Signs Temp Pulse Pulse Resp BP BP Pulse Ox 10/13/24 07:14 36.9 C 61 17 114/56 L 92 10/13/24 03:37 36.7 C 58 L 20 101/58 L 95 10/13/24 00:26 55 L 10/13/24 00:10 36.7 C 63 16 110/63 93 O2 Del Method 10/13/24 07:14 Room Air 10/13/24 03:37 Room Air 10/13/24 00:26 10/13/24 00:10 Room Air Laboratory Results 10/13/24 10/13/24 10/13/24 Range/Units Unknown 06:31 00:56 WBC 4.26 L (4.8-10.8) K/ul RBC 2.99 L (4.20-5.40) M/uL Hgb 9.7 L 10.1 L (12.0-16.0) g/dl Hct 28.9 L 29.6 L (37.0-47.0) % MCV 96.7 (80.0-100.0) fL MCH 32.4 (25.0-34.0) pg MCHC 33.6 (32.0-36.0) g/dL RDW Std Deviation 50.5 H (36.4-46.3) fL RDW Coeff of Bob 14.2 (11.5-14.5) % Plt Count 106 L (130-400) K/uL MPV 10.1 (9.4-12.4) fL Immature Gran % (Auto) 0.2 % Neut % (Auto) 49.8 % Lymph % (Auto) 27.0 % [place] % (Auto) 19.7 % Eos % (Auto) 2.8 % Baso % (Auto) 0.5 % Neut # (Auto) 2.12 (1.40-6.50) K/uL Lymph # (Auto) 1.15 L (1.20-3.40) K/uL [place] # (Auto) 0.84 H (0.11-0.59) K/uL Eos # (Auto) 0.12 (0.00-0.50) K/uL Baso # (Auto) 0.02 (0.00-0.20) K/uL Immature Gran # (Auto) 0.01 (0.01-0.20) K/uL PT 13.0 H (9.0-12.0) Seconds INR 1.2 H (0.9-1.1) APTT (21-31) Seconds PTT Ratio Sodium 133 L (136-145) mmol/L Potassium 4.3 (3.5-5.1) mmol/L Chloride 106 (98-107) mmol/L Carbon Dioxide 23 (21-32) mmol/L Anion Gap 4 (3-11) BUN 41 H (6-23) mg/dl Creatinine 1.44 H (0.6-1.2) mg/dl Est Cr Clr Drug Dosing 22.7 ml/min eGFR 36.31 BUN/Creatinine Ratio 28.5 H (10-20) Glucose 107 H (70-99(Fasting)) mg/dl Calcium 7.8 L (8.6-10.3) mg/dl Total Bilirubin 0.8 (0.2-1.0) mg/dl AST 36 (13-39) U/L ALT 37 (7-52) U/L Alkaline Phosphatase 274 H (34-104) U/L Troponin I High Sens (0-14) pg/ml C-Reactive Protein (0-0.5) mg/dl Total Protein 5.8 L (6.0-8.3) gm/dl Albumin 2.4 L (3.4-5.0) gm/dl Globulin 3.4 (2.5-4.0) gm/dl Albumin/Globulin Ratio 0.7 L (0.9-2) Lipase Pending Procalcitonin (0-0.5) ng/ml Stool Occult Bld Scrn Positive A (Negative) SARS-CoV-2 (PCR) (Negative) Influenza Type A (PCR) (Neg) Influenza Type B (PCR) (Neg) RSV (RT-PCR) (Neg) Blood Type Antibody Screen 10/12/24 10/12/24 10/12/24 Range/Units 20:41 16:20 14:31 WBC (4.8-10.8) K/ul RBC (4.20-5.40) M/uL Hgb 10.9 L (12.0-16.0) g/dl Hct 31.8 L (37.0-47.0) % MCV (80.0-100.0) fL MCH (25.0-34.0) pg MCHC (32.0-36.0) g/dL RDW Std Deviation (36.4-46.3) fL RDW Coeff of Bob (11.5-14.5) % Plt Count (130-400) K/uL MPV (9.4-12.4) fL Immature Gran % (Auto) % Neut % (Auto) % Lymph % (Auto) % [place] % (Auto) % Eos % (Auto) % Baso % (Auto) % Neut # (Auto) (1.40-6.50) K/uL Lymph # (Auto) (1.20-3.40) K/uL [place] # (Auto) (0.11-0.59) K/uL Eos # (Auto) (0.00-0.50) K/uL Baso # (Auto) (0.00-0.20) K/uL Immature Gran # (Auto) (0.01-0.20) K/uL PT (9.0-12.0) Seconds INR (0.9-1.1) APTT (21-31) Seconds PTT Ratio Sodium (136-145) mmol/L Potassium (3.5-5.1) mmol/L Chloride (98-107) mmol/L Carbon Dioxide (21-32) mmol/L Anion Gap (3-11) BUN (6-23) mg/dl Creatinine (0.6-1.2) mg/dl Est Cr Clr Drug Dosing ml/min eGFR BUN/Creatinine Ratio (10-20) Glucose (70-99(Fasting)) mg/dl Calcium (8.6-10.3) mg/dl Total Bilirubin (0.2-1.0) mg/dl AST (13-39) U/L ALT (7-52) U/L Alkaline Phosphatase (34-104) U/L Troponin I High Sens (0-14) pg/ml C-Reactive Protein (0-0.5) mg/dl Total Protein (6.0-8.3) gm/dl Albumin (3.4-5.0) gm/dl Globulin (2.5-4.0) gm/dl Albumin/Globulin Ratio (0.9-2) Lipase Procalcitonin (0-0.5) ng/ml Stool Occult Bld Scrn (Negative) SARS-CoV-2 (PCR) NEGATIVE (Negative) Influenza Type A (PCR) Negative (Neg) Influenza Type B (PCR) Negative (Neg) RSV (RT-PCR) Negative (Neg) Blood Type A Positive Antibody Screen NEGATIVE 10/12/24 Range/Units 14:22 WBC 6.73 (4.8-10.8) K/ul RBC 3.39 L (4.20-5.40) M/uL Hgb 11.3 L (12.0-16.0) g/dl Hct 33.0 L (37.0-47.0) % MCV 97.3 (80.0-100.0) fL MCH 33.3 (25.0-34.0) pg MCHC 34.2 (32.0-36.0) g/dL RDW Std Deviation 50.8 H (36.4-46.3) fL RDW Coeff of Bob 14.1 (11.5-14.5) % Plt Count 151 (130-400) K/uL MPV 10.5 (9.4-12.4) fL Immature Gran % (Auto) % Neut % (Auto) % Lymph % (Auto) % [place] % (Auto) % Eos % (Auto) % Baso % (Auto) % Neut # (Auto) (1.40-6.50) K/uL Lymph # (Auto) (1.20-3.40) K/uL [place] # (Auto) (0.11-0.59) K/uL Eos # (Auto) (0.00-0.50) K/uL Baso # (Auto) (0.00-0.20) K/uL Immature Gran # (Auto) (0.01-0.20) K/uL PT 12.3 H (9.0-12.0) Seconds INR 1.1 (0.9-1.1) APTT 33 H (21-31) Seconds PTT Ratio 1.2 Sodium 134 L (136-145) mmol/L Potassium 4.2 (3.5-5.1) mmol/L Chloride 105 (98-107) mmol/L Carbon Dioxide 23 (21-32) mmol/L Anion Gap 6 (3-11) BUN 49 H (6-23) mg/dl Creatinine 1.39 H (0.6-1.2) mg/dl Est Cr Clr Drug Dosing 23.5 ml/min eGFR 37.89 BUN/Creatinine Ratio 35.3 H (10-20) Glucose 112 H (70-99(Fasting)) mg/dl Calcium 8.5 L (8.6-10.3) mg/dl Total Bilirubin 0.9 (0.2-1.0) mg/dl AST 60 H (13-39) U/L ALT 52 (7-52) U/L Alkaline Phosphatase 362 H (34-104) U/L Troponin I High Sens 10.5 (0-14) pg/ml C-Reactive Protein 13.09 H (0-0.5) mg/dl Total Protein 7.2 (6.0-8.3) gm/dl Albumin 2.9 L (3.4-5.0) gm/dl Globulin 4.3 H (2.5-4.0) gm/dl Albumin/Globulin Ratio 0.7 L (0.9-2) Lipase Procalcitonin 0.64 H (0-0.5) ng/ml Stool Occult Bld Scrn (Negative) SARS-CoV-2 (PCR) (Negative) Influenza Type A (PCR) (Neg) Influenza Type B (PCR) (Neg) RSV (RT-PCR) (Neg) Blood Type Antibody Screen Diagnostic Findings Abdomen/Pelvis CT 10/12/24 15:50 Technique: Axial computed tomography images were obtained of the abdomen and pelvis after the administration of intravenous and oral contrast. Comparison is made to the prior CT dated 11/15/2022. Findings: As before, the liver is shrunken and nodular in contour, consistent with cirrhosis. There are esophageal varices. No liver mass lesion is seen. The portal vein is patent. The gallbladder appears unremarkable. No bile duct dilatation is noted. The spleen is of normal size. No focal splenic lesion is evident. There are 2 suspected small cysts in the pancreatic body, measuring 7 mm and 6 mm. There is also a suspected 7 mm cyst in the pancreatic body. The pancreas otherwise appears normal with no sign of acute or chronic pancreatitis and no mass lesion noted. The pancreatic duct is of normal caliber. The adrenal glands appear unremarkable. No definite renal or proximal ureteral calculi are seen on this contrast-enhanced study. There is no hydronephrosis or perinephric stranding. No renal mass lesion is identified. The right ureteral stent seen before has been removed. There is multifocal renal cortical scarring bilaterally. There is a small 8 mm right renal cyst as well as a 2 mm right renal cyst. The abdominal aorta is of normal caliber. There are small subcentimeter retroperitoneal para-aortic lymph nodes. No overt abdominal adenopathy is seen. A moderate to large hiatal hernia is again seen. There is no sign of small bowel obstruction. There is sigmoid diverticulosis without definite diverticulitis. There is apparent mild wall thickening of the cecum. No free intraperitoneal air is identified. There is a small amount of free pelvic fluid No distal ureteral or bladder calculi are seen. No bladder mass lesion is evident. The iliac arteries are of normal caliber. No pelvic adenopathy is noted. There is a 2.2 cm right ovarian cyst, which appears increased in size. The uterus has been removed. There is an unchanged old L3 compression fracture. No focal osseous lesion is seen Impression: 1. Unchanged advanced cirrhosis and portal hypertension 2. Small amount of ascites 3. Bilateral renal cortical atrophy and small right renal cysts 4. Apparent small pancreatic cysts, likely benign congenital or post inflammatory cysts 5. Hiatal hernia 6. Apparent wall thickening of the cecum, which could be due to infectious colitis or inflammatory bowel disease. Colon carcinoma cannot be excluded. 7. 2.2 cm right ovarian cyst, indeterminate in nature in this postmenopausal patient. A follow-up pelvic ultrasound could be obtained 8. Diverticulosis without definite diverticulitis ACT 112: Positive. There are findings on this exam that require communication between the performing entity and the patient following Patient Test Result Information Act ([place] ACT 112) guidelines. Electronically signed by John Schaefer 10-12-2024 4:34 PM Chest CTA 10/12/24 15:50 Technique: Axial computed tomography images were obtained of the chest after the administration of intravenous contrast according to the CT angiogram protocol Comparison is made to the prior CT dated 04/03/2024 Findings: There is no definite sign of pulmonary embolism. There is multifocal alveolar consolidation bilaterally. There is no pleural effusion or pneumothorax. There is no sign of pulmonary fibrosis or other diffuse interstitial process. No endobronchial lesion is seen There is no mediastinal, hilar, or axillary adenopathy. The thoracic aorta appears unremarkable with no sign of aneurysm or dissection. There is no pericardial effusion. There is coronary atherosclerosis There is mild diffuse esophageal dilatation No fracture is seen. No focal osseous lesion is evident Impression: 1. No definite sign of pulmonary embolism 2. Bilateral pneumonia 3. Mild esophageal dilatation that could be due to dysmotility or reflux 4. Coronary atherosclerosis ACT 112: Positive. There are findings on this exam that require communication between the performing entity and the patient following Patient Test Result Information Act ([place] ACT 112) guidelines. Electronically signed by John Schaefer 10-12-2024 4:37 PM Portal Vein US 10/12/24 17:45 Exam(s): US OTHER US duplex portal hepatic EXAM: US Duplex Arterial/Venous of the Abdomen, Complete CLINICAL HISTORY: Reason for exam: epigastric pain. TECHNIQUE: Real-time duplex ultrasound scan of the abdomen integrating B-mode two- dimensional vascular structure, Doppler spectral analysis and color flow Doppler imaging. COMPARISON: None. FINDINGS: Liver appears very heterogeneous and nodular, suggestive of chronic parenchymal disease/cirrhosis. Portal veins: Summer-splenic confluence appears patent. Left and right portal veins: Normal hepatopetal flow on color and spectral Doppler imaging. Hepatic artery: Patent. Hepatic veins: Patent. Normal flow on color and spectral Doppler imaging. Velocity: 18 cm/s. Splenic vein: Unremarkable. Normal flow on color and spectral Doppler imaging. Other findings: Right pleural effusion noted. . IMPRESSION: Coarsened/echogenic liver parenchyma, consistent with chronic disease/cirrhosis. Unremarkable duplex ultrasound scan of the abdomen. Right pleural effusion. . Electronically signed by: Joon Quinonez MD, JANET 10/13/24 04:39 AM (1) Cirrhosis Hepatic cirrhosis type: unspecified hepatic cirrhosis Ascites presence: without ascites Qualified Code(s): K74.60 - Unspecified cirrhosis of liver
--- NOTE | 2024-10-13 14:44 | Hospitalist Progress Note ---
Date of Service October 13, 2024 Assessment & Plan (1) Upper GI bleed: (2) Cough with hemoptysis: (3) Pneumonia: (4) Epigastric pain: Plan 84-year-old female with liver cirrhosis and known varices presents to the ER with hemoptysis #Bilateral pneumonia Cepheid PCR test negative Continue intravenous Zosyn and add azithromycin Avoid flutter valve initially due to hemoptysis #Hemoptysis No further episodes, suspected from coughing with pneumonia. Continue to monitor overnight. Possible discharge home tomorrow #Possible gastrointestinal bleed with known esophageal varices and esophageal dilatation on CT / chronic dysphagia /VILLAGOMEZ liver cirrhosis Appreciate GI consult, will stop octreotide drip and change pantoprazole to 40mg IV BID, Hgb 11.3 -> 9.7 overnight #Epigastric pain on exam Possible gastritis with gastrointestinal bleed vs. MSK from coughing. US negative for portal vein thrombosis. #Abnormal CTAP /wall thickening of cecum /2.2 cm right ovarian cyst This findings can be followed up as an outpatient if desired #Bradycardia sinus, monitor on telemetry, secondary to nadalol use, currently on hold due to NPO status VTE prophylaxis - chemical contraindicated, SCDs Diet - Advance to clears, if doing well on this can advance to full liquid later today Disposition - admit to PCU Admission and Anticipated Discharge Date Admission Date: October 12, 2024 Subjective No further episodes of hemoptysis or hematesmesis. Having loose bowel movements after oral contrast yesterday. Feels hungry and asking about food. Physical Exam Constitutional: WD/WN, vitals as above ENMT: external ear and nose normal, oropharynx normal Respiratory: normal respiratory effort, lungs clear to auscultation Cardiovascular: RRR, no murmur, no edema Gastrointestinal (Abdomen): Percussion/Palpation: + abdomen tender (epigastric) and abdomen soft; no guarding and abdomen not rigid Skin: no rashes, warm and dry Neurologic: moves all extremities and awake; not confused Psychiatric: A+Ox3, euthymic affect Results & Data Results & Data Vital Signs (Past 12 Hours) Vital Signs Temp Pulse Resp BP Pulse Ox O2 Del Method 10/13/24 12:34 36.5 C 55 L 17 133/71 93 Room Air 10/13/24 12:00 Room Air 10/13/24 07:14 36.9 C 61 17 114/56 L 92 Room Air 10/13/24 03:37 36.7 C 58 L 20 101/58 L 95 Room Air PG Care Time/CCT Total # of Minutes Spent Total Time Spent with Patient: Total time spent is greater than 50% in coordination of care (as documented) at patient's floor/unit and/or counseling patient: Coding Level of Care Code 00125 SUB INP/OBS CARE 3/50MIN Diagnoses Upper GI bleed K92.2 Cough with hemoptysis R04.2 Pneumonia J18.9 Epigastric pain R10.13
[2024-10-13] MEDS ORDERED: ARTIFICIAL TEARS OP PRN (14:56)
[2024-10-13] MEDS: FUROSEMIDE 40 MG TAB PO SCH (15:26)
[2024-10-13] MEDS: SPIRONOLACTONE 25 MG TAB PO SCH (17:47)
[2024-10-13] MEDS: ATORVASTATIN 40 MG TAB PO SCH (20:32)
[2024-10-13] MEDS: GABAPENTIN 100 MG CAP PO SCH (20:32)
[2024-10-13] MEDS: PANTOprazole 40 MG/10 ML SYR IV SCH (20:33)
[2024-10-13] MEDS ORDERED: ARTIFICIAL TEARS OPB PRN (20:43)
[2024-10-14] MEDS: LEVOTHYROXINE SODIUM 75 MCG TABLET PO SCH (06:12)
[2024-10-14 07:48] LABS: Hematocrit (blood only) 30.9 % (37.0-47.0); Hemoglobin 10.4 g/dl (12.0-16.0); Mean Corpuscular Hemoglobin 32.8 pg (25.0-34.0); Mean Corpuscular Hgb Conc 33.7 g/dL (32.0-36.0); Mean Corpuscular Volume 97.5 fL (80.0-100.0); Mean Platelet Volume 10.1 fL (9.4-12.4); Platelet Count 119 K/uL (130-400); RDW Coefficient of Variation 14.2 % (11.5-14.5); RDW Standard Deviation 50.8 fL (36.4-46.3); Red Blood Count 3.17 M/uL (4.20-5.40); White Blood Count 4.56 K/ul (4.8-10.8)
[2024-10-14 08:04] LABS: BUN Creatinine Ratio 20.8 (10-20); Calcium 7.8 mg/dl (8.6-10.3); Potassium 3.8 mmol/L (3.5-5.1)
[2024-10-14] MEDS: nadoloL 40 MG TAB PO SCH (09:20)
--- NOTE | 2024-10-14 09:57 | Gastroenterology Progress Note ---
Date of Service October 14, 2024 Assessment & Plan (1) Upper GI bleed: Plan: Again I don't think she is having a GI bleed. The "red stool" is concerning but can be due to red jello. With her H/H remaining stable and even better I think we can hold off on consideration of evaluation. Will follow. Admission and Anticipated Discharge Date Admission Date: October 12, 2024 Subjective Still coughing but no hemoptysis. She reports having "red" stool but had eaten red jello. H/H are improved from yesterday. Now complains of bloody urine. Physical Exam Physical Exam: She looks comfortable Constitutional: WD/WN, vitals as above Results & Data Vital Signs (Past 12 Hours) Vital Signs Temp Pulse Resp BP Pulse Ox O2 Del Method 10/14/24 07:17 36.6 C 52 L 18 102/53 L 94 Room Air 10/14/24 02:53 37.0 C 52 L 18 97/57 L 93 Room Air 10/13/24 22:07 36.4 C L 57 L 18 119/65 91 Room Air
[2024-10-14 11:22] LABS: Adenovirus F 40/41 PCR Not Detected (NotDetected); Astrovirus PCR Not Detected (NotDetected); Campylobacter PCR Not Detected (NotDetected); Cryptosporidium PCR Not Detected (NotDetected); Cyclospora cayetanensis PCR Not Detected (NotDetected); Entamoeba histolytica PCR Not Detected (NotDetected); Enteroaggregative E.coli(EAEC) Not Detected (NotDetected); Enteropathogenic E.coli (EPEC) Not Detected (NotDetected); Enterotoxigenic E.coli (ETEC) Not Detected (NotDetected); Giardia lamblia PCR Not Detected (NotDetected); Norovirus GI/GII PCR Not Detected (NotDetected); Plesiomonas shigelloides PCR Not Detected (NotDetected); Rotavirus A PCR Not Detected (NotDetected); Salmonella PCR Not Detected (NotDetected); Sapovirus PCR Not Detected (NotDetected); Shiga-like Toxin E.coli (STEC) Not Detected (NotDetected); Shigella/Enteroinvasive E.coli Not Detected (NotDetected); Vibrio cholerae PCR Not Detected (NotDetected); Vibrio species PCR Not Detected (NotDetected); Yersinia enterocolitica PCR Not Detected (NotDetected)
[2024-10-14] MEDS: LACTATED RINGER'S 1,000 ML IV SCH (11:36)
[2024-10-14 12:48] LABS: Appearance Urine Clear (Clear); Bacteria Urine Automated None Seen (None Seen); Bilirubin Urine Negative (Negative); Blood Urine Negative (Negative); Color Urine Yellow; Glucose Urine UA Negative (Negative); Hyaline Casts Urine Present /lpf (None Presnt); Ketones Urine Negative (Negative); Leukocyte Esterase Urine 1+ (Negative); Nitrite Urine Negative (Negative); Protein Urine Negative (Negative); Specific Gravity Urine 1.017 (1.000-1.030); Urobilinogen Urine Negative (Negative); WBC Urine Automated 0-5 /hpf (0-5); pH Urine 5.5 (4.5-7.5)
[2024-10-14] MEDS: cefTRIAXone SODIUM 2,000 MG/50 ML BAG IV SCH (13:32)
--- NOTE | 2024-10-14 13:44 | Hospitalist Progress Note ---
Date of Service October 14, 2024 Assessment & Plan (1) Upper GI bleed: (2) Cough with hemoptysis: (3) Pneumonia: (4) Epigastric pain: (5) Acute kidney injury: Plan 84-year-old female with liver cirrhosis and known varices presents to the ER with hemoptysis #Bilateral pneumonia Cepheid PCR test negative Stable to switch to intravenous ceftriaxone and will continue on azithromycin Avoid flutter valve initially due to hemoptysis #Acute kidney injury In the setting of diarrhea and diuretics suspect prerenal. Will give 1 L of LR today. Hold further Lasix or spironolactone (already had dose today). Repeat creatinine tomorrow. #Hemoptysis No further episodes, suspected from coughing with pneumonia. Continue to monitor overnight. Possible discharge home tomorrow #Possible gastrointestinal bleed with known esophageal varices and esophageal dilatation on CT / chronic dysphagia /VILLAGOMEZ liver cirrhosis Appreciate GI consult, hemoglobin now appears stable, continue pantoprazole 40 mg IV BID, fecal occult blood positive although this does not necessarily mean a GI bleed I am concerned enough by the story of blood in her briefs and rising creatinine to keep her overnight. #Epigastric pain on exam Possible gastritis with gastrointestinal bleed vs. MSK from coughing. US negative for portal vein thrombosis. #Abnormal CTAP /wall thickening of cecum /2.2 cm right ovarian cyst This findings can be followed up as an outpatient if desired #Bradycardia sinus, monitor on telemetry, secondary to nadalol use, currently on hold due to NPO status VTE prophylaxis - chemical contraindicated, SCDs Diet - Advance to clears, if doing well on this can advance to full liquid later today Disposition - admit to PCU Admission and Anticipated Discharge Date Admission Date: October 12, 2024 Subjective She reports feeling stable since yesterday. Blood noted in briefs overnight although question whether this may have been diarrhea with red Jell-O. Stool and C. difficile PCR negative. Physical Exam Constitutional: WD/WN, vitals as above Respiratory: normal respiratory effort, lungs clear to auscultation Cardiovascular: RRR, no murmur, no edema Gastrointestinal (Abdomen): Percussion/Palpation: + abdomen tender (epigastric) and abdomen soft; no guarding and abdomen not rigid Skin: no rashes, warm and dry Neurologic: moves all extremities and awake; not confused Psychiatric: A+Ox3, euthymic affect Results & Data Results & Data Vital Signs (Past 12 Hours) Vital Signs Temp Pulse Pulse Resp BP Pulse Ox O2 Del Method 10/14/24 11:07 36.5 C 53 L 19 120/58 L 97 Room Air 10/14/24 08:00 52 L 10/14/24 07:17 36.6 C 52 L 18 102/53 L 94 Room Air 10/14/24 02:53 37.0 C 52 L 18 97/57 L 93 Room Air Laboratory Results Labs reviewed PG Care Time/CCT Total # of Minutes Spent Total Time Spent with Patient: Total time spent is greater than 50% in coordination of care (as documented) at patient's floor/unit and/or counseling patient: Coding Level of Care Code 33727 SUB INP/OBS CARE 3/50MIN Diagnoses Upper GI bleed K92.2 Cough with hemoptysis R04.2 Pneumonia J18.9 Epigastric pain R10.13 Acute kidney injury N17.9
[2024-10-15 08:19] LABS: Basophils # (auto) 0.03 K/uL (0.00-0.20); Basophils % (auto) 0.7 %; Eosinophils # (auto) 0.11 K/uL (0.00-0.50); Eosinophils % (auto) 2.5 %; Hematocrit (blood only) 31.8 % (37.0-47.0); Hemoglobin 10.8 g/dl (12.0-16.0); Immature Granulocytes # (auto) 0.02 K/uL (0.01-0.20); Immature Granulocytes % (auto) 0.5 %; Lymphocytes # (auto) 1.12 K/uL (1.20-3.40); Lymphocytes % (auto) 25.5 %; Mean Corpuscular Hemoglobin 33.1 pg (25.0-34.0); Mean Corpuscular Volume 97.5 fL (80.0-100.0); Mean Platelet Volume 9.9 fL (9.4-12.4); Monocytes # (auto) 0.73 K/uL (0.11-0.59); Monocytes % (auto) 16.6 %; Neutrophils # (auto) 2.38 K/uL (1.40-6.50); Neutrophils % (auto) 54.2 %; Platelet Count 115 K/uL (130-400); RDW Standard Deviation 50.3 fL (36.4-46.3); Red Blood Count 3.26 M/uL (4.20-5.40); White Blood Count 4.39 K/ul (4.8-10.8)
[2024-10-15 08:41] LABS: BUN Creatinine Ratio 17.1 (10-20); Calcium 7.5 mg/dl (8.6-10.3); Creatinine Clr Calc Pharmacy 13.4 ml/min; Magnesium 1.9 mg/dl (1.7-2.4); Potassium 4.1 mmol/L (3.5-5.1)
--- NOTE | 2024-10-15 11:00 | Communication Note ---
Date of Service: October 15, 2024 Patient is an 84 yo female with pneumonia and hemoptysis seen by [facility] over the weekend for heme positive stool. [facility] resuming coverage this morning. She follows with Dr. Deutsch of GI/hepatology at [facility] due to her history of cirrhosis & varices. CT a/p shows thickening of cecum. No overt GI bleeding at present and her symptoms do sound more consistent with hemoptysis rather than hematemesis. Continue to monitor H/H & for any overt GI bleeding. Continue PPI therapy. If she remains hemodynamically stable, can proceed with outpatient GI endoscopic evaluation with her [facility] team when recovered from pneumonia. If her status changes, please re-consult GI for further acute intervention.
[2024-10-15] MEDS: LACTATED RINGER'S 1,000 ML IV SCH (11:06)
[2024-10-15] MEDS: ADVANCED PROBIOTIC 625 MG CAPSULE PO SCH (11:24)
[2024-10-15] MEDS: AMOXICILLIN/CLAVULANATE 500 MG TAB PO SCH (11:24)
--- NOTE | 2024-10-15 16:20 | Hospitalist Progress Note ---
Date of Service October 15, 2024 Assessment & Plan (1) Upper GI bleed: (2) Cough with hemoptysis: (3) Pneumonia: (4) Epigastric pain: (5) Acute kidney injury: (6) Abnormal CT of the abdomen: Plan 84-year-old female with liver cirrhosis and known varices presents to the ER with hemoptysis #Bilateral pneumonia Cepheid PCR test negative Finished 3 days azithromycin 500mg Switch ceftriaxone for Augmentin to finish total 7 day course Avoid flutter valve initially due to hemoptysis #Acute kidney injury Worsening Cr to 2.45 although today will be the first day without furosemide/spironolactone as held after being given yesterday, will give additional 1L LR, repeat BMP later today #Hemoptysis No further episodes, suspected from coughing with pneumonia. #Possible gastrointestinal bleed with known esophageal varices and esophageal dilatation on CT / chronic dysphagia /VILLAGOMEZ liver cirrhosis Possible gastritis but acute GI bleed ruled out. Switch pantoprazole and famotidine back to her usual PO dosing. #Epigastric pain on exam Resolved #Abnormal CTAP /wall thickening of cecum /2.2 cm right ovarian cyst Discussed with patient. This findings can be followed up as an outpatient if desired #Bradycardia sinus, monitor on telemetry, ok to continue nadolol VTE prophylaxis - SCDs, chemical deferred due to hemoptysis on admission Diet - regular Disposition - admit to PCU Admission and Anticipated Discharge Date Admission Date: October 12, 2024 Subjective No fever, chills, shortness of breath, hemoptysis, hemoptysis, melena. Yellow loose bowel movement this morning. Physical Exam Constitutional: WD/WN, vitals as above Respiratory: normal respiratory effort, lungs clear to auscultation Cardiovascular: Rate/Rhythm: regular rhythm and + bradycardic Gastrointestinal (Abdomen): normal bowel sounds, soft, nontender, no hepatosplenomegaly Results & Data Results & Data Vital Signs (Past 12 Hours) Vital Signs Temp Pulse Resp BP Pulse Ox O2 Del Method 10/15/24 14:17 36.3 C L 56 L 16 114/65 95 Room Air 10/15/24 08:00 59 L 16 103/68 94 Room Air PG Care Time/CCT Total # of Minutes Spent Total Time Spent with Patient: Total time spent is greater than 50% in coordination of care (as documented) at patient's floor/unit and/or counseling patient: Coding Level of Care Code 36762 SUB INP/OBS CARE 3/50MIN Diagnoses Upper GI bleed K92.2 Cough with hemoptysis R04.2 Pneumonia J18.9 Epigastric pain R10.13 Acute kidney injury N17.[address] of the abdomen R93.5
[2024-10-15 18:45] LABS: BUN Creatinine Ratio 13.7 (10-20); Calcium 7.8 mg/dl (8.6-10.3); Creatinine Clr Calc Pharmacy 10.9 ml/min; Potassium 3.8 mmol/L (3.5-5.1)
[2024-10-16 06:16] LABS: BUN Creatinine Ratio 17.2 (10-20); Calcium 7.2 mg/dl (8.6-10.3)
[2024-10-16] MEDS: PANTOprazole 40 MG TAB PO SCH (08:04)
[2024-10-16] MEDS: FAMOTIDINE 40 MG TABLET PO SCH (08:04)
--- NOTE | 2024-10-16 10:31 | Hospitalist Progress Note ---
Date of Service October 16, 2024 Assessment & Plan (1) Upper GI bleed: (2) Cough with hemoptysis: (3) Pneumonia: (4) Epigastric pain: (5) Acute kidney injury: (6) Abnormal CT of the abdomen: Plan 84-year-old female with liver cirrhosis and known varices presents to the ER with hemoptysis #Bilateral pneumonia Chest x-ray showed evidence of bilateral pneumonia Cepheid PCR test negative Finished 3 days azithromycin 500mg Switch ceftriaxone for Augmentin to finish total 7 day course Clinically much improved #Acute kidney injury Improving renal function Patient has a history of stage III CKD #Hemoptysis No further episodes, suspected from coughing with pneumonia. #Possible gastrointestinal bleed with known esophageal varices and esophageal dilatation on CT / chronic dysphagia /VILLAGOMEZ liver cirrhosis Possible gastritis but acute GI bleed ruled out. Switch pantoprazole and famotidine back to her usual PO dosing. Outpatient follow-up with [facility] gastroenterology #Epigastric pain on exam Resolved #Abnormal CTAP /wall thickening of cecum /2.2 cm right ovarian cyst Discussed with patient. This findings can be followed up as an outpatient if desired #Bradycardia sinus, monitor on telemetry, ok to continue nadolol VTE prophylaxis - SCDs, chemical deferred due to hemoptysis on admission Diet - regular Disposition - Awaiting evaluation by physical therapy Admission and Anticipated Discharge Date Admission Date: October 12, 2024 Subjective Patient seen and examined today, sitting up in the chair, in high spirits, denies any new complaints Review of Systems Review of Systems: All systems reviewed are negative, apart from the ones contained in the history. Physical Exam Physical Exam: The patient is awake, alert and oriented 3, well developed and well nourished, normocephalic and atraumatic, lying in bed and in no acute distress. HEENT--PERRL, EOMI, mucous membranes and oropharynx mildly dry Neck--supple. No JVD. No bruits. Thyroid normal, trachea midline, no augusta nopathy. Heart--normal S1 and S2. No murmurs, rubs or gallops. Lungs--clear bilaterally, no respiratory distress, no accessory muscle use. Abdomen--normal bowel sounds and soft. Extremities--no cyanosis or clubbing. No edema. Dermatologic--normal skin turgor, normal color, no abnormal lymph nodes, no rash. Neurologic--cranial nerves II through XII grossly intact. Rheumatologic--normal range of motion. Psychiatric--normal affect. Results & Data Results & Data Vital Signs (Past 12 Hours) Vital Signs Temp Pulse Resp BP Pulse Ox O2 Del Method 10/16/24 07:26 98.4 F 72 20 108/62 92 Room Air PG Care Time/CCT Total # of Minutes Spent Total Time Spent with Patient: Total time spent is greater than 50% in coordination of care (as documented) at patient's floor/unit and/or counseling patient: Coding Level of Care Code 60170 SUB INP/OBS CARE 2/35MIN Diagnoses Upper GI bleed K92.2 Cough with hemoptysis R04.2 Pneumonia J18.9 Epigastric pain R10.13 Acute kidney injury N17.[address] of the abdomen R93.5 Time Spent (min) 35
[2024-10-17 07:46] VITALS: BP 120/61; PULSE 64; RESP 14; TEMP 97.7; O2SAT 95
[2024-10-17 09:11] LABS: BUN Creatinine Ratio 22.6 (10-20); Calcium 7.5 mg/dl (8.6-10.3); Creatinine Clr Calc Pharmacy 19.5 ml/min; Potassium 3.8 mmol/L (3.5-5.1)
--- NOTE | 2024-10-17 10:37 | Discharge Summary ---
Date of Service October 17, 2024 Admission HPI Per Admitting Provider Cristina mares is an 84-year-old female with liver cirrhosis and known esophageal varices who presents to the ER with hemoptysis and epigastric pain. She reports 1 to 2 weeks of a productive cough which she has not taken any medications for. Today she woke up at 7:30 AM and coughed up a clot of blood, since then it has been more like specks with her sputum. She denies any melena and reports having normal bowel movements up until large bowel movement following oral contrast given in the emergency room. She denies any fever, chills, nausea, vomiting chest pain or shortness of breath. She has known dysphagia to large pills which is no worse than usual. She has chronically poor appetite mainly eating yogurts and drinking boost drinks. She is under gastroenterology and hepatology at [facility]. Reviewed note from June 2023 - noted prior endoscopy and April 2022 with large esophageal varices and patient started on nadolol at that time. The patient denies any prior esophageal bleeding. Admission Exam (Per Admitting) Constitutional The patient is awake, alert and oriented 3, well developed and well nourished, normocephalic and atraumatic, lying in bed and in no acute distress. HEENT--PERRL, EOMI, mucous membranes and oropharynx mildly dry Neck--supple. No JVD. No bruits. Thyroid normal, trachea midline, no adenopathy. Heart--normal S1 and S2. No murmurs, rubs or gallops. Lungs--clear bilaterally, no respiratory distress, no accessory muscle use. Abdomen--normal bowel sounds and soft. Extremities--no cyanosis or clubbing. No edema. Dermatologic--normal skin turgor, normal color, no abnormal lymph nodes, no rash. Neurologic--cranial nerves II through XII grossly intact. Rheumatologic--normal range of motion. Psychiatric--normal affect. Discharge Data Consultations 10/12/24 16:59 ED Decision to Admit Stat 10/12/24 17:18 Consult Gastroenterology Routine Hospital Course (1) Upper GI bleed: (2) Cough with hemoptysis: (3) Pneumonia: (4) Epigastric pain: (5) Acute kidney injury: (6) Abnormal CT of the abdomen: Plan 84-year-old female with liver cirrhosis and known varices presents to the ER with hemoptysis #Bilateral pneumonia Chest x-ray showed evidence of bilateral pneumonia Cepheid PCR test negative Finished 3 days azithromycin 500mg Switch ceftriaxone for Augmentin to finish total 7 day course Clinically much improved #Acute kidney injury Improving renal function Patient has a history of stage III CKD #Hemoptysis No further episodes, suspected from coughing with pneumonia. #Possible gastrointestinal bleed with known esophageal varices and esophageal dilatation on CT / chronic dysphagia /VILLAGOMEZ liver cirrhosis Possible gastritis but acute GI bleed ruled out. Switch pantoprazole and famotidine back to her usual PO dosing. Outpatient follow-up with [facility] gastroenterology #Epigastric pain on exam Resolved #Abnormal CTAP /wall thickening of cecum /2.2 cm right ovarian cyst Discussed with patient. This findings can be followed up as an outpatient if desired #Bradycardia sinus, monitor on telemetry, ok to continue nadolol VTE prophylaxis - SCDs, chemical deferred due to hemoptysis on admission Diet - regular Disposition - discharge home Coding Level of Care Code 35782 INP/OBS DISCH >30 MIN Diagnoses Upper GI bleed K92.2 Cough with hemoptysis R04.2 Pneumonia J18.9 Epigastric pain R10.13 Acute kidney injury N17.[address] of the abdomen R93.5 Time Spent (min) 35
== END 2024-10-17 12:51 | disposition home or self-care (01) | DRG 377 ==
LOC: ED 14:05 → 2S 17:15 → SUATTDRO 17:15 → 2S 18:23 → 3N 10-14 14:27
DX: K74.60 Unspecified cirrhosis of liver; Z79.890 Hormone replacement therapy; N17.9 Acute kidney failure, unspecified; Z88.2 Allergy status to sulfonamides; Z79.899 Other long term (current) drug therapy; J18.9 Pneumonia, unspecified organism; R19.7 Diarrhea, unspecified; Z66 Do not resuscitate; K75.81 Nonalcoholic steatohepatitis (NASH); R00.1 Bradycardia, unspecified; K22.89 Other specified disease of esophagus; Z79.82 Long term (current) use of aspirin; R04.2 Hemoptysis; N18.30 Chronic kidney disease, stage 3 unspecified; K92.2 Gastrointestinal hemorrhage, unspecified; I85.01 Esophageal varices with bleeding